=== PATIENT | male | born 1950 | race Caucasian/White ===

== ENCOUNTER 2018-05-07 10:18 | Inpatient (IN) | payer MEDICARE, OTHER ==
[2018-05-07] MEDS ORDERED: Sodium Chloride 0.9% 1,000 ML IV SCH (10:30)
--- NOTE | 2018-05-07 10:31 | EDM.PDOC ---
ED HPI GENERAL MEDICAL PROBLEM - General Chief Complaint: Neuro Symptoms/Deficits Stated Complaint: CAME FROM MAIN REGISTRATION Time Seen by Provider: 05/07/18 10:25 Source of Information: Reports: Patient History Limitations: Reports: No Limitations - History of Present Illness INITIAL COMMENTS - FREE TEXT/NARRATIVE: 67-year-old male arrives in the ED on his own volition. History is somewhat discordant. He reports he's had symptoms of right arm discomfort and right leg discomfort for the better part of a week. This morning after awakening he recognizes that his speech was off. Rarely this occurred when he spoke to his mother on the phone and she indicated that his speech was hardly understandable. Patient on firm questioning indicates that his speech was not quite right yesterday as well. He denies headache nausea or vomiting. Denies any recent falls or closed head injuries. He states that his leg and arm are clumsy and are not obeying him. He can still walk but with difficulty but needs assistance. No previous history of CVA. Patient has a history of hypertension but states he's not been taking any antihypertensive for a lengthy period of time. Apparently he was placed on anti-cholesterol medication as well in the past but stopped this 2 due to side effects He is a smoker a pack and half per day. Drinks alcohol daily. Onset: Unknown/Unsure (He states he's been having right arm and leg weakness and discomfort for the better part of a week. The speech problems and dysarthria are new today. He's had them since awakening therefore not ever clarified time of CVA.) Onset Date: 05/07/18 (Not able to clarify time of CVA. He awoke with right facial droop and speech problems today.) Duration: Hour(s): Location: Reports: Generalized (Right arm weakness right leg weakness right hemifacial weakness and dysarthria.) Quality: Reports: Ache (States his right arm is aching in his discomfort.) Severity: Moderate (Affecting the right side. Right facial droop is evident.) Improves with: Reports: None Worsens with: Reports: None Context: Denies: Activity, Exercise, Lifting, Sick Contact, Trauma, Other Associated Symptoms: Reports: Cough, cough w sputum (Chronic productive cough as he is a heavy cigarette smoker.), Shortness of Breath, Weakness (Right arm right leg right face today.). 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: Other (see below) (None.) - Related Data Allergies Allergy/AdvReac Type Severity Reaction Status Date / Time tetnus Allergy Respiratory Uncoded 05/07/18 10:45 Distress Past Medical History Cardiovascular History: Reports: High Cholesterol, Hypertension Respiratory History: Reports: Bronchitis, Recurrent, COPD ([id number] history of cigarette use.) Genitourinary History: Reports: BPH Social & Family History - Alcohol Use Alcohol Use History: Yes Days Per Week of Alcohol Use: 7 Days Per Week of Alcohol Use Comment: 7 Number of Drinks Per Day: 4 (Primarily drinks whiskey and water 2-3 ounces of alcohol per drink) Total Drinks Per Week: 28 Alcohol Use Frequency: Daily - Living Situation & Occupation Living situation: Reports: Occupation: Employed ED ROS GENERAL - Review of Systems Review Of Systems: See Below Constitutional: Denies: Fever, Chills, Malaise, Weakness, Fatigue, Weight Loss HEENT: Reports: Glasses Respiratory: Reports: No Symptoms Cardiovascular: Reports: No Symptoms Endocrine: Reports: No Symptoms GI/Abdominal: Reports: No Symptoms : Reports: Other (nocturia x3) Musculoskeletal: Reports: Other (Appreciates weakness of his right arm right leg and difficulty walking this morning.) Skin: Reports: No Symptoms Neurological: Reports: Numbness, Paresthesia (Right arm right leg), Pre- Existing Deficit ( right arm right leg), Tingling, Difficulty Walking ( Difficulty walking today needed help), Weakness ( and he drove himself to the hospital.), Change in Speech ( right arm right leg right face. each is dysarthric. ). Denies: Confusion, Dizziness, Headache, Seizure, Syncope ( symptoms in his arm and leg been present for about a week. ), Tremors, Trouble Speaking Psychiatric: Reports: No Symptoms Hematologic/Lymphatic: Reports: No Symptoms Immunologic: Reports: No Symptoms ED EXAM, NEURO - Physical Exam Exam: See Below Exam Limited By: No Limitations General Appearance: Alert, WD/WN, Mild Distress Eye Exam: Bilateral Eye: Normal Inspection, PERRL Throat/Mouth: Other (Oropharynx is diffusely erythematous. Uvula was in the midline. Tongue is mildly dry and coated) Head Exam: Atraumatic, Normocephalic Neck: Normal Inspection, Supple, Non-Tender, Full Range of Motion. No: Carotid Bruit, Lymphadenopathy (L), Lymphadenopathy (R) Respiratory/Chest: No Respiratory Distress, Lungs Clear, Normal Breath Sounds, Decreased Breath Sounds. No: Respiratory Distress Cardiovascular: Normal Peripheral Pulses, Regular Rate, Rhythm, No Edema, No Gallop, No Murmur, No Rub GI/Abdominal: Normal Bowel Sounds, Soft, Non-Tender, No Organomegaly, No Abnormal Bruit, No Mass Neurological: Alert, Normal Dorsiflexion, Normal Plantar Flexion, Babinski ( Positive on the right), Other (I would grade his motor power and tone in his right upper extremity is 4.5 out of 5 similarly 4.5 out of 5 in his right leg. He does have a positive Babinski on the right side.). No: CN II-XII Intact, Normal Gait DTR: 0: Achilles (R), Achilles (L), 1+: Bicep (R), Bicep (L), 2+: Patella (R), Patella (L) Back Exam: Normal Inspection, Full Range of Motion. No: CVA Tenderness (L), CVA Tenderness (R) Extremities: Normal Inspection, Normal Range of Motion, Non-Tender, No Pedal Edema, Other (He has 3+ pitting edema bilaterally up to his knees for the most part) Psychiatric: Normal Mood Skin Exam: Warm, Dry, Intact, Normal Color, No Rash EKG INTERPRETATION EKG Date: 05/07/18 Time: 10:40 Rhythm: NSR Rate (Beats/Min): 93 [place]: Normal P-Wave: Present QRS: Other (There is early R-wave transition suggesting right ventricular hypertrophy pattern. He is a heavy smoker likely has pulmonary hypertension.) ST-T: Depressed (ST segment is depressed V3 to V6 one in aVL suggesting possible anteroseptal apical lateral wall ischemia. There is a deep Q-wave in lead 3 but Q-wave in aVF is less than 25% of the QRS complexes considered inconsequential. With computer reading of inferior wall [place].) QT: Normal EKG Interpretation Comments: Abnormal ECG. Course - Vital Signs Last Recorded V/S: Last Vital Signs Temp 36.9 C 05/07/18 10:26 Pulse 80 05/07/18 11:12 Resp 16 05/07/18 10:26 BP 169/88 H 05/07/18 11:43 Pulse Ox 100 05/07/18 10:26 - Orders/Labs/Meds Orders: Active Orders 24 hr Category Date Time Status Blood Glucose Check, Bedside [RC] ONETIME Care 05/07/18 10:29 Active EKG Documentation Completion [RC] STAT Care 05/07/18 10:27 Active Chest 1V Frontal [CR] Stat Exams 05/07/18 10:27 Taken URINALYSIS W/MICROSCOPIC [UA W/MICROSCOPIC] [URIN] Stat Lab 05/07/18 12:04 Ordered Sodium Chloride 0.9% [Normal Saline] 1,000 ml Med 05/07/18 10:30 Active IV ASDIRECTED Medication Orders Sodium Chloride (Normal Saline) 1,000 mls @ 100 mls/hr IV ASDIRECTED DALE Last Admin: 05/07/18 10:43 Dose: 100 mls/hr Labs: Laboratory Tests 05/07/18 05/07/18 05/07/18 Range/Units 10:35 10:35 10:35 WBC 6.78 (4.23-9.07) K/mm3 RBC 4.96 (4.63-6.08) M/mm3 Hgb 15.2 (13.7-17.5) gm/L Hct 43.6 (40.1-51.0) % MCV 87.9 (79.0-92.2) fl MCH 30.6 (25.7-32.2) pg MCHC 34.9 (32.2-35.5) g/dl RDW Std Deviation 41.7 (35.1-43.9) fL Plt Count 194 (163-337) K/mm3 MPV 10.6 (9.4-12.3) fl Neutrophils % (Manual) 64 H (40-60) % Band Neutrophils % 1 (0-10) % Lymphocytes % (Manual) 30 (20-40) % Atypical Lymphs % 0 % Monocytes % (Manual) 4 (2-10) % Eosinophils % (Manual) 0 L (0.8-7.0) % Basophils % (Manual) 1 (0.2-1.2) Platelet Estimate Adequate RBC Morph Comment Normal ESR (0-15) mm/hr PT 10.0 (9.5-12.1) SECONDS INR < 0.93 APTT 28 (24-31) SECONDS Sodium 134 L (136-145) mEq/L Potassium 3.9 (3.5-5.1) mEq/L Chloride 99 (98-107) mEq/L Carbon Dioxide 23 (21-32) mEq/L Anion Gap 15.9 H (5-15) BUN 14 (7-18) mg/dL Creatinine 0.9 (0.7-1.3) mg/dL Est Cr Clr Drug Dosing 73.44 mL/min Estimated GFR (MDRD) > 60 (>60) mL/min BUN/Creatinine Ratio 15.6 (14-18) Glucose 259 H (80-115) mg/dL Hemoglobin A1c (4.50-6.20) % Calcium 9.4 (8.5-10.1) mg/dL Magnesium 1.6 L (1.8-2.4) mg/dl Total Bilirubin 0.5 (0.2-1.0) mg/dL AST 18 (15-37) U/L ALT 22 (16-63) U/L Alkaline Phosphatase 108 (46-116) U/L Troponin I < 0.017 (0.00-0.056) ng/mL C-Reactive Protein 0.3 (<1.0) mg/dL NT-Pro-B Natriuret Pep (0-125) pg/mL Total Protein 8.0 (6.4-8.2) g/dl Albumin 3.7 (3.4-5.0) g/dl Globulin 4.3 gm/dL Albumin/Globulin Ratio 0.9 L (1-2) Lipase (73-393) U/L Ethyl Alcohol 0.00 (0.00) gm% 05/07/18 05/07/18 05/07/18 Range/Units 10:35 10:35 10:35 WBC (4.23-9.07) K/mm3 RBC (4.63-6.08) M/mm3 Hgb (13.7-17.5) gm/L Hct (40.1-51.0) % MCV (79.0-92.2) fl MCH (25.7-32.2) pg MCHC (32.2-35.5) g/dl RDW Std Deviation (35.1-43.9) fL Plt Count (163-337) K/mm3 MPV (9.4-12.3) fl Neutrophils % (Manual) (40-60) % Band Neutrophils % (0-10) % Lymphocytes % (Manual) (20-40) % Atypical Lymphs % % Monocytes % (Manual) (2-10) % Eosinophils % (Manual) (0.8-7.0) % Basophils % (Manual) (0.2-1.2) Platelet Estimate RBC Morph Comment ESR 35 H (0-15) mm/hr PT (9.5-12.1) SECONDS INR APTT (24-31) SECONDS Sodium (136-145) mEq/L Potassium (3.5-5.1) mEq/L Chloride (98-107) mEq/L Carbon Dioxide (21-32) mEq/L Anion Gap (5-15) BUN (7-18) mg/dL Creatinine (0.7-1.3) mg/dL Est Cr Clr Drug Dosing mL/min Estimated GFR (MDRD) (>60) mL/min BUN/Creatinine Ratio (14-18) Glucose (80-115) mg/dL Hemoglobin A1c 10.90 H (4.50-6.20) % Calcium (8.5-10.1) mg/dL Magnesium (1.8-2.4) mg/dl Total Bilirubin (0.2-1.0) mg/dL AST (15-37) U/L ALT (16-63) U/L Alkaline Phosphatase (46-116) U/L Troponin I (0.00-0.056) ng/mL C-Reactive Protein (<1.0) mg/dL NT-Pro-B Natriuret Pep 2742 H (0-125) pg/mL Total Protein (6.4-8.2) g/dl Albumin (3.4-5.0) g/dl Globulin gm/dL Albumin/Globulin Ratio (1-2) Lipase (73-393) U/L Ethyl Alcohol (0.00) gm% 05/07/18 Range/Units 10:35 WBC (4.23-9.07) K/mm3 RBC (4.63-6.08) M/mm3 Hgb (13.7-17.5) gm/L Hct (40.1-51.0) % MCV (79.0-92.2) fl MCH (25.7-32.2) pg MCHC (32.2-35.5) g/dl RDW Std Deviation (35.1-43.9) fL Plt Count (163-337) K/mm3 MPV (9.4-12.3) fl Neutrophils % (Manual) (40-60) % Band Neutrophils % (0-10) % Lymphocytes % (Manual) (20-40) % Atypical Lymphs % % Monocytes % (Manual) (2-10) % Eosinophils % (Manual) (0.8-7.0) % Basophils % (Manual) (0.2-1.2) Platelet Estimate RBC Morph Comment ESR (0-15) mm/hr PT (9.5-12.1) SECONDS INR APTT (24-31) SECONDS Sodium (136-145) mEq/L Potassium (3.5-5.1) mEq/L Chloride (98-107) mEq/L Carbon Dioxide (21-32) mEq/L Anion Gap (5-15) BUN (7-18) mg/dL Creatinine (0.7-1.3) mg/dL Est Cr Clr Drug Dosing mL/min Estimated GFR (MDRD) (>60) mL/min BUN/Creatinine Ratio (14-18) Glucose (80-115) mg/dL Hemoglobin A1c (4.50-6.20) % Calcium (8.5-10.1) mg/dL Magnesium (1.8-2.4) mg/dl Total Bilirubin (0.2-1.0) mg/dL AST (15-37) U/L ALT (16-63) U/L Alkaline Phosphatase (46-116) U/L Troponin I (0.00-0.056) ng/mL C-Reactive Protein (<1.0) mg/dL NT-Pro-B Natriuret Pep (0-125) pg/mL Total Protein (6.4-8.2) g/dl Albumin (3.4-5.0) g/dl Globulin gm/dL Albumin/Globulin Ratio (1-2) Lipase 100 (73-393) U/L Ethyl Alcohol (0.00) gm% Meds: Medications Generic Name Dose Route Start Last Admin Trade Name Freq PRN Reason Stop Dose Admin Sodium Chloride 1,000 mls @ 100 mls/hr 05/07/18 10:30 05/07/18 10:43 Normal Saline IV 100 mls/hr ASDIRECTED DALE Administration Discontinued Medications Generic Name Dose Route Start Last Admin Trade Name Marina PRN Reason Stop Dose Admin Amlodipine Besylate 10 mg 05/07/18 21:00 Norvasc PO BEDTIME DALE Amlodipine Besylate 10 mg 05/07/18 11:40 05/07/18 11:43 Norvasc PO 05/07/18 11:41 10 mg ONETIME ONE Administration Aspirin 162 mg 05/07/18 11:28 05/07/18 11:35 Aspirin PO 05/07/18 11:29 162 mg ONETIME ONE Administration Enalaprilat 1.25 mg 05/07/18 11:34 05/07/18 11:40 Vasotec Iv IVPUSH 05/07/18 11:35 1.25 mg ONETIME ONE Administration Furosemide 40 mg 05/07/18 11:32 05/07/18 11:38 Lasix IVPUSH 05/07/18 11:33 40 mg NOW ONE Administration Labetalol HCl 20 mg 05/07/18 11:00 05/07/18 11:12 Normodyne IVPUSH 05/07/18 11:01 20 mg ONETIME ONE Administration Protocol - Radiology Interpretation Free Text/Narrative:: 67-year-old male drove himself to the hospital. He came because of dysarthria and right-sided facial weakness. He states that he's been having discomfort in his right arm and leg for the last week. A he states his right arm and leg are somewhat clumsy. He is having some difficulty walking and needed assistance into the hospital. He has not fallen or hit his head in the last couple weeks. He has no outward signs of trauma. Patient smokes pack and half cigarettes per day. He is known to have hypertension which is likely uncontrolled as he has not been taking any medication for several months. Patient takes alcohol on a daily basis. Show signs and symptoms of alcoholism with rhinophyma facial rubor. Clinically he is in sinus rhythm. He is hypertensive but the definitive numbers are not yet available. Initial ones came back at 201/180 which is fictitious as the pulse pressures are too close together. Plan 1 view chest x- ray. ECG. Routine labs blood alcohol level serum magnesium level coags. IV will be normal saline [address] head to be done immediately - Re-Assessments/Exams Free Text/Narrative Re-Assessment/Exam: 05/07/18 10:50 CT of the brain reveals no intracranial bleeding or mass effect. He does show advanced degenerative changes with prominent sulci. Prominent dilated lateral ventricles and third ventricles. Diffuse small vessel ischemic changes in both basal ganglia without any obvious lacunar infarcts. There is an area of increased density at th of the right cerebellum. This could be a small vascular hemorrhage in the brainstem. Will await radiology report.. There are no skull fractures and sinuses and mastoids are clear. ECG shows sinus rhythm at 93/m. There is evidence of right ventricular hypertrophy pattern suggesting cor pulmonale or pulmonary hypertension. 05/07/18 11:00 initial BP is elevated at 207/101. Patient will receive labetalol 20 mg IV. 05/07/18 11:15 Labs are back. Total white count is normal at 6.78. 64% neutrophils and 1% bands reported. Hemoglobin is 15.2 with hematocrit of 43.6. EP is normal at 87.9. White count is normal 194,000. PT is 10.0 with an INR of less than 0.93. PTT is 28. Sodium is slightly low at 134. Potassium is normal at 3.9. Chloride is 99 with a bicarbonate of 23. And a gap slightly elevated at 15.9. BUNs 14 creatinine is 0.9. Glucose is elevated at 259 will order a glycosylated protein to see if he is diabetic versus this being a stress response. Is 9.4. Magnesium slightly low at 1.6. Total bilirubin is 0.5 with normal liver function. Troponin I is less than 0.017. C-reactive protein is 0.3. BNP is elevated at 2742. All at this time is 0. 05/07/18 11:23 we got him up walking. He does not feel safe to walk alone. He walks with a slightly wider space gait than normal. His right leg moves fairly normally but he states it feels weak and numb. Did quite well without any loss of balance or dizziness. He states however he did notice this at home. 05/07/18 11:26 I will speak with Dr. Lowery -- pest control applicator hospitalist with a view to admission to the hospital. His elevated BNP and marked dependent edema suggests that he has chronic congestive failure. 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 Requires echocardiogram as part of his investigation as well as Doppler ultrasound of his carotids and MRI of his brain. I will place him on initial dose of aspirin 162 mg by mouth now. He's had no indications of active gastritis or GI bleeding will also give him Norvasc 10 mg by mouth as it will not cause any negative inotropic effect on his heart. 05/07/18 11:41 Spoke with pest control applicator hospitalist Dr. Lowery and the patient will be admitted to the intensive care unit for definitive management. 05/07/18 12:06 Last recorded blood pressure was 178/93. She just received the Vasotec IV. Departure - Departure Time of Disposition: 11:43 Disposition: Admitted As Inpatient 65 Condition: Fair Clinical Impression: Cerebrovascular accident (CVA) determined by clinical assessment, Hypomagnesemia, Hyponatremia, Alcohol abuse, Acute hyperglycemia Congestive heart failure Qualifiers: Heart failure type: unspecified Heart failure chronicity: unspecified Qualified Code(s): I50.9 - Heart failure, unspecified - Discharge Information Referrals: PCP,None [Primary Care Provider] - Forms: ED Department Discharge - My Orders Last 24 Hours: My Active Orders 05/07/18 10:27 EKG Documentation Completion [RC] STAT Chest 1V Frontal [CR] Stat 05/07/18 10:29 Blood Glucose Check, Bedside [RC] ONETIME 05/07/18 10:30 Sodium Chloride 0.9% [Normal Saline] 1,000 ml IV ASDIRECTED 05/07/18 12:04 URINALYSIS W/MICROSCOPIC [UA W/MICROSCOPIC] [URIN] Stat - Assessment/Plan Last 24 Hours: My Active Orders 05/07/18 10:27 EKG Documentation Completion [RC] STAT Chest 1V Frontal [CR] Stat 05/07/18 10:29 Blood Glucose Check, Bedside [RC] ONETIME 05/07/18 10:30 Sodium Chloride 0.9% [Normal Saline] 1,000 ml IV ASDIRECTED 05/07/18 12:04 URINALYSIS W/MICROSCOPIC [UA W/MICROSCOPIC] [URIN] Stat
[2018-05-07] MEDS ORDERED: Labetalol 100 MG/20 ML MDV IVPUSH ONE (11:00)
[2018-05-07] MEDS ORDERED: Aspirin 81 MG Tab.Chew PO ONE (11:28)
[2018-05-07] MEDS ORDERED: Furosemide 40 MG/4 ML VIAL IVPUSH ONE (11:32)
[2018-05-07] MEDS ORDERED: Enalaprilat 1.25 MG/ML SDV IVPUSH ONE (11:34)
--- NOTE | 2018-05-07 11:39 | CT ---
Head CT Technique: Multiple axial sections through the brain were obtained. Intravenous contrast was not utilized. Comparison: No previous intracranial imaging is available. Findings: Ventricles along with basal cisterns and sulci over the convexities are mildly prominent. Old lacunar infarcts are seen within the basal ganglia. Mild diminished density noted within the periventricular and subcortical white matter which is most likely due to small vessel ischemic demyelination change. There is no evidence of intracranial hemorrhage. No midline shift or mass effect is seen. Bone window settings were reviewed which shows no acute calvarial abnormality. Impression: 1. Senescent change as described above. No acute intracranial abnormality is identified on noncontrast head CT study. Diagnostic code #2 Agree with preliminary report issued by [facility] (preliminary report reported on 05/07/18, 11:46 AM Central Time)
[2018-05-07] MEDS ORDERED: amLODIPine 5 MG Tab PO ONE (11:40)
--- NOTE | 2018-05-07 12:29 | CR ---
Chest: Portable view of the chest was obtained. Comparison: No prior chest x-ray, prior chest CT of 07/03/16. Heart is slightly enlarged. Tortuous thoracic aorta is seen. Lungs are clear with no acute parenchymal change. Bony structures are grossly intact. Incidental note of several old healed right mid rib fractures. Impression: 1. Incidental findings. Nothing acute is seen on portable chest x-ray. Diagnostic code #2
[2018-05-07] MEDS ORDERED: hydrALAZINE 20 MG/ML SDV IVPUSH PRN (12:33)
[2018-05-07] MEDS ORDERED: LORazepam 2 MG/ML SDV IVPUSH PRN ×2 (12:33→12:35)
[2018-05-07] MEDS ORDERED: Metoprolol Tartrate 5 MG/5 ML SDV IVPUSH PRN (12:33)
[2018-05-07] MEDS ORDERED: Ondansetron 4 MG/2 ML SDV IV PRN (12:37)
[2018-05-07] MEDS ORDERED: Acetaminophen/HYDROcodone 325-5 MG Tab PO PRN (12:37)
[2018-05-07] MEDS ORDERED: Bisacodyl 5 MG Tab PO PRN (12:37)
[2018-05-07] MEDS ORDERED: Ondansetron 4 MG Tab.DIS PO PRN (12:37)
[2018-05-07] MEDS ORDERED: Docusate Sodium 100 MG Cap PO PRN (12:37)
[2018-05-07] MEDS ORDERED: Acetaminophen 325 MG Tab PO PRN (12:37)
[2018-05-07] MEDS ORDERED: Polyethylene Glycol 3350 Powder 17 GM Packet PO PRN (12:37)
[2018-05-07] MEDS ORDERED: Albuterol/Ipratropium 3.0-0.5 MG/3 ML Neb Soln NEB PRN (12:37)
[2018-05-07] MEDS ORDERED: Lactated Ringers 1,000 ML IV SCH (12:45)
[2018-05-07] MEDS ORDERED: Magnesium Sulfate/Water 2 GM in Premix Bag 1 BAG IV ONE (12:49)
[2018-05-07] MEDS ORDERED: 50% Dextrose in Water 50 ML Syringe IVPUSH PRN (12:49)
[2018-05-07] MEDS: Nicotine 21 MG/24 Hr Patch TRDERM SCH (12:57)
--- NOTE | 2018-05-07 13:13 | PCM.HP ---
H&P History of Present Illness - General Date of Service: 05/07/18 Admit Problem/Dx: Admission Diagnosis/Problem Admission Diagnosis/Problem CVA, Cerebrovascular accident Source of Information: Patient, Family, Old Records, Provider, RN, RN Notes Reviewed History Limitations: Reports: No Limitations - History of Present Illness Initial Comments - Free Text/Narative: Tl Alvarez is a 67 yo male who resents for ED today (05/07/18), after driving himself here, with right arm and leg discomfort for the better part of a week. She after waking he reports his speech was off. It is reported that he spoke with his mother on the phone and she reported his speech was understandable. After discussion with the ED provider it is noted that his speech was actually off yesterday as well. Denies headache, nausea, vomiting, recent falls, recent closed head injuries. He reports that his leg and arm are clumsy and not obeying him. He also reports right-sided facial droop. He can walk but it is difficult and he needs assistance. Has no history of CVA. Has history of hypertension but he has not been taking any antihypertensive medications for some time now. He was also apparently on a statin but stopped due to side effects. He is a current pack and a half a day smoker. Drinks 4 alcoholic drinks daily. in the ED temp was 36.9 Celsius. Pulse 80. Respirations 16. Blood pressure high at 169/88. Pulse ox 100%. 12-lead EKG was obtained which shows a sinus rhythm at 93 bpm. There is early R wave transition suggesting right ventricular hypertrophy pattern. He is a heavy smoker and likely has pulmonary hypertension. There is ST segment depression in leads V3 to V6 and aVL suggesting possible anterior septal apical lateral wall ischemia. As a deep Q- wave in lead 3 but Q-wave in aVF is less than 25% of the QRS complex considered inconsequential. Computer reads inferior wall DE. Labs are obtained: CBC is normal at 6.78. Hemoglobin good at 15.2. Hematocrit 43.6. He is normocytic. Platelets are good on 194,000. Neutrophils are slightly elevated at 64%. There is 1% band neutrophils noted. PT is 10. INR is less than 0.93. APTT is 28. Sodium is 134. Potassium 3.9. Chloride 99. Coronary oxide 23. Anion gap is high at 15.9. BUN is 14. Creatinine 0.9. EGFR greater than 60. Glucose is quite high at 259. Calcium is 9.4. Magnesium low at 1.6. Chao 0.5. AST is 18, ALT 22, alkaline phosphatase 108. Troponin is negative at 0.017. CRP P0 0.3. Protein 8.0. Albumin 3.7. Ethanol call is 0.00. ESR is 35. A1c is very high at 10.9. BNP is very high at 2742. Lipase is 100. UA is obtained and is negative. And 10 mg of Norvasc, 162 mg by mouth aspirin. 1.25mg vasotec IV. 40 mg IV push Lasix. And 20 mg IV push labetalol. 1 view chest x-rays obtained which notes incidental findings. Nothing acute. No pulmonary congestion is noted. CT of the head was obtained and an interpreted by Dr. Sofia as "1. Senescent changes as described. No acute intracranial abnormalities identified on noncontrast head CT study." he did ambulate in the ER and notes that he does not feel safe walking alone. He does walk with a slightly wider space gait than normal. Right leg does move fairly normal however he states he feels weak and numb. Denies any dizziness and no loss of balance. He is subsequently admitted to the ICU. He carries a history of: hLD, HTN, recurrent bronchitis COPD, BPH. He is a full code. He does not have a PCP. - Related Data Allergies/Adverse Reactions: Allergies Allergy/AdvReac Type Severity Reaction Status Date / Time tetnus Allergy Respiratory Uncoded 05/07/18 13:00 Distress Home Medications: Home Meds Aspirin [Ecotrin] 325 mg PO TID 05/07/18 [History] Past Medical History HEENT History: Reports: Cataract, Impaired Vision Cardiovascular History: Reports: High Cholesterol, Hypertension Respiratory History: Reports: Bronchitis, Recurrent, COPD ([id number] history of cigarette use.) Genitourinary History: Reports: BPH Social & Family History - Tobacco Use Smoking Status *Q: Current Every Day Smoker Years of Tobacco use: 40 Packs/Tins Daily: 1.5 - Caffeine Use Caffeine Use: Reports: Coffee - Alcohol Use Days Per Week of Alcohol Use: 7 Number of Drinks Per Day: 4 (Primarily drinks whiskey and water 2-3 ounces of alcohol per drink) Total Drinks Per Week: 28 - Recreational Drug Use Recreational Drug Use: No - Living Situation & Occupation Living situation: Reports: Occupation: Employed H&P Review of Systems - Review of Systems: Review Of Systems: See Below General: Reports: Weakness. Denies: Fever, Chills, Malaise, Fatigue, Decreased Appetite, Weight Loss HEENT: Reports: No Symptoms. Denies: Contact Lenses, Dysphasia, Ear Pain, Eye Pain, Post Nasal Drip, Sinus Congestion, Visual Changes Pulmonary: Reports: No Symptoms, Cough (chronic ), Sputum (chronic ) Cardiovascular: Reports: No Symptoms, Dyspnea on Exertion Gastrointestinal: Reports: No Symptoms. Denies: Abdominal Pain, Constipation, Diarrhea, Decreased Appetite, Distension, Nausea, Stool Incontinence, Vomiting Genitourinary: Reports: Other (nocturia ). Denies: Dysuria, Frequency, Burning , Pain, Urgency Musculoskeletal: Reports: Other (Right arm and leg weakness ). Denies: Neck Pain, Shoulder Pain, Arm Pain, Back Pain, Foot Pain, Joint Pain Skin: Reports: No Symptoms Psychiatric: Reports: No Symptoms Neurological: Reports: No Symptoms, Numbness, Paresthesia, Tingling, Trouble Speaking, Difficulty Walking, Weakness, Change in Speech, Gait Disturbance. Denies: Confusion, Dizziness, Headache, Pre-Existing Deficit, Seizure, Syncope Hematologic/Lymphatic: Reports: No Symptoms Immunologic: Reports: No Symptoms Exam - Exam Exam: See Below - Vital Signs Vital Signs: Last Vital Signs Temp 98.4 F 05/07/18 10:26 Pulse 80 05/07/18 11:12 Resp 16 05/07/18 10:26 BP 169/88 H 05/07/18 11:43 Pulse Ox 100 05/07/18 10:26 Weight: 160 lb - Exam Quality Assessment: DVT Prophylaxis General: Alert, Oriented, Cooperative. No: Mild Distress HEENT: Conjunctiva Clear, EACs Clear, EOMI, Hearing Intact, Nares Patent, Posterior Pharynx Clear, PERRLA. No: Mucosa Moist & [place] (dry) Neck: Supple, Trachea Midline. No: JVD, Thyromegaly Lungs: Clear to Auscultation, Normal Respiratory Effort, Decreased Breath Sounds. No: Crackles, Rales, Rhonchi, Wheezing Cardiovascular: Regular Rate, Regular Rhythm GI/Abdominal Exam: Normal Bowel Sounds, Soft, Non-Tender, No Organomegaly, No Distention, No Abnormal Bruit, No Mass (Male) Exam: Deferred Rectal (Males) Exam: Deferred Back Exam: Normal Inspection, Full Range of Motion Extremities: Normal Inspection, Normal Range of Motion, Non-Tender, Normal Capillary Refill, Pedal Edema (3+ bilateral ) Peripheral Pulses: 1+: Posterior Tibial (L), Posterior Tibial (R), Dorsalis Pedis (L), Dorsalis Pedis (R), 2+: Radial (L), Radial (R) Skin: Warm, Dry, Intact Neuro Extensive - Mental Status: Alert, Oriented x3, Normal Mood/Affect, Memory Intact Neuro Extensive - Motor, Sensory, Reflexes: CN II-XII Intact, Abnormal Gait, Dysarthria, Facial Palsy (R), Pronator Drift (R), Abnormal Finger to Nose ( right arm). No: Tongue Deviation (L), Tongue Deviation (R), Facial palsy (L), Hemeplagia (R), Hemeplagia (L), Pronator Drift (L), Abnormal Sensation, Abnormal Motor, Tremor, Motor/Sensory Deficits Psychiatric: Alert, Normal Affect, Normal Mood - Patient Data Lab Results Last 24 hrs: Laboratory Results - last 24 hr 05/07/18 05/07/18 05/07/18 Range/Units 10:35 10:35 10:35 WBC 6.78 (4.23-9.07) K/mm3 RBC 4.96 (4.63-6.08) M/mm3 Hgb 15.2 (13.7-17.5) gm/L Hct 43.6 (40.1-51.0) % MCV 87.9 (79.0-92.2) fl MCH 30.6 (25.7-32.2) pg MCHC 34.9 (32.2-35.5) g/dl RDW Std Deviation 41.7 (35.1-43.9) fL Plt Count 194 (163-337) K/mm3 MPV 10.6 (9.4-12.3) fl Neutrophils % (Manual) 64 H (40-60) % Band Neutrophils % 1 (0-10) % Lymphocytes % (Manual) 30 (20-40) % Atypical Lymphs % 0 % Monocytes % (Manual) 4 (2-10) % Eosinophils % (Manual) 0 L (0.8-7.0) % Basophils % (Manual) 1 (0.2-1.2) Platelet Estimate Adequate RBC Morph Comment Normal ESR (0-15) mm/hr PT 10.0 (9.5-12.1) SECONDS INR < 0.93 APTT 28 (24-31) SECONDS Sodium 134 L (136-145) mEq/L Potassium 3.9 (3.5-5.1) mEq/L Chloride 99 (98-107) mEq/L Carbon Dioxide 23 (21-32) mEq/L Anion Gap 15.9 H (5-15) BUN 14 (7-18) mg/dL Creatinine 0.9 (0.7-1.3) mg/dL Est Cr Clr Drug Dosing 73.44 mL/min Estimated GFR (MDRD) > 60 (>60) mL/min BUN/Creatinine Ratio 15.6 (14-18) Glucose 259 H (80-115) mg/dL Hemoglobin A1c (4.50-6.20) % Calcium 9.4 (8.5-10.1) mg/dL Magnesium 1.6 L (1.8-2.4) mg/dl Total Bilirubin 0.5 (0.2-1.0) mg/dL AST 18 (15-37) U/L ALT 22 (16-63) U/L Alkaline Phosphatase 108 (46-116) U/L Troponin I < 0.017 (0.00-0.056) ng/mL C-Reactive Protein 0.3 (<1.0) mg/dL NT-Pro-B Natriuret Pep (0-125) pg/mL Total Protein 8.0 (6.4-8.2) g/dl Albumin 3.7 (3.4-5.0) g/dl Globulin 4.3 gm/dL Albumin/Globulin Ratio 0.9 L (1-2) Lipase (73-393) U/L Urine Color (Yellow) Urine Appearance (Clear) Urine pH (5.0-8.0) Ur Specific [place] (1.005-1.030) Urine Protein (Negative) Urine Glucose (UA) (Negative) Urine Ketones (Negative) Urine Occult Blood (Negative) Urine Nitrite (Negative) Urine Bilirubin (Negative) Urine Urobilinogen (0.2-1.0) Ur Leukocyte Esterase (Negative) Urine RBC (0-5) /hpf Urine WBC (0-5) /hpf Ur Epithelial Cells (0-5) /hpf Urine Bacteria (FEW) /hpf Urine Mucus (FEW) /hpf Urine Opiates Screen (NEGATIVE) Ur Buprenorphine Scrn (NEGATIVE) Ur Oxycodone Screen (NEGATIVE) Urine Methadone Screen (NEGATIVE) Ur Propoxyphene Screen (NEGATIVE) Ur Barbiturates Screen (NEGATIVE) Ur Tricyclics Screen (NEGATIVE) Ur Phencyclidine Scrn (NEGATIVE) Ur Amphetamine Screen (NEGATIVE) U Methamphetamines Scrn (NEGATIVE) U Benzodiazepines Scrn (NEGATIVE) U Cocaine Metab Screen (NEGATIVE) U Marijuana (THC) Screen (NEGATIVE) Ethyl Alcohol 0.00 (0.00) gm% 05/07/18 05/07/18 05/07/18 Range/Units 10:35 10:35 10:35 WBC (4.23-9.07) K/mm3 RBC (4.63-6.08) M/mm3 Hgb (13.7-17.5) gm/L Hct (40.1-51.0) % MCV (79.0-92.2) fl MCH (25.7-32.2) pg MCHC (32.2-35.5) g/dl RDW Std Deviation (35.1-43.9) fL Plt Count (163-337) K/mm3 MPV (9.4-12.3) fl Neutrophils % (Manual) (40-60) % Band Neutrophils % (0-10) % Lymphocytes % (Manual) (20-40) % Atypical Lymphs % % Monocytes % (Manual) (2-10) % Eosinophils % (Manual) (0.8-7.0) % Basophils % (Manual) (0.2-1.2) Platelet Estimate RBC Morph Comment ESR 35 H (0-15) mm/hr PT (9.5-12.1) SECONDS INR APTT (24-31) SECONDS Sodium (136-145) mEq/L Potassium (3.5-5.1) mEq/L Chloride (98-107) mEq/L Carbon Dioxide (21-32) mEq/L Anion Gap (5-15) BUN (7-18) mg/dL Creatinine (0.7-1.3) mg/dL Est Cr Clr Drug Dosing mL/min Estimated GFR (MDRD) (>60) mL/min BUN/Creatinine Ratio (14-18) Glucose (80-115) mg/dL Hemoglobin A1c 10.90 H (4.50-6.20) % Calcium (8.5-10.1) mg/dL Magnesium (1.8-2.4) mg/dl Total Bilirubin (0.2-1.0) mg/dL AST (15-37) U/L ALT (16-63) U/L Alkaline Phosphatase (46-116) U/L Troponin I (0.00-0.056) ng/mL C-Reactive Protein (<1.0) mg/dL NT-Pro-B Natriuret Pep 2742 H (0-125) pg/mL Total Protein (6.4-8.2) g/dl Albumin (3.4-5.0) g/dl Globulin gm/dL Albumin/Globulin Ratio (1-2) Lipase (73-393) U/L Urine Color (Yellow) Urine Appearance (Clear) Urine pH (5.0-8.0) Ur Specific [place] (1.005-1.030) Urine Protein (Negative) Urine Glucose (UA) (Negative) Urine Ketones (Negative) Urine Occult Blood (Negative) Urine Nitrite (Negative) Urine Bilirubin (Negative) Urine Urobilinogen (0.2-1.0) Ur Leukocyte Esterase (Negative) Urine RBC (0-5) /hpf Urine WBC (0-5) /hpf Ur Epithelial Cells (0-5) /hpf Urine Bacteria (FEW) /hpf Urine Mucus (FEW) /hpf Urine Opiates Screen (NEGATIVE) Ur Buprenorphine Scrn (NEGATIVE) Ur Oxycodone Screen (NEGATIVE) Urine Methadone Screen (NEGATIVE) Ur Propoxyphene Screen (NEGATIVE) Ur Barbiturates Screen (NEGATIVE) Ur Tricyclics Screen (NEGATIVE) Ur Phencyclidine Scrn (NEGATIVE) Ur Amphetamine Screen (NEGATIVE) U Methamphetamines Scrn (NEGATIVE) U Benzodiazepines Scrn (NEGATIVE) U Cocaine Metab Screen (NEGATIVE) U Marijuana (THC) Screen (NEGATIVE) Ethyl Alcohol (0.00) gm% 05/07/18 05/07/18 05/07/18 Range/Units 10:35 12:04 12:04 WBC (4.23-9.07) K/mm3 RBC (4.63-6.08) M/mm3 Hgb (13.7-17.5) gm/L Hct (40.1-51.0) % MCV (79.0-92.2) fl MCH (25.7-32.2) pg MCHC (32.2-35.5) g/dl RDW Std Deviation (35.1-43.9) fL Plt Count (163-337) K/mm3 MPV (9.4-12.3) fl Neutrophils % (Manual) (40-60) % Band Neutrophils % (0-10) % Lymphocytes % (Manual) (20-40) % Atypical Lymphs % % Monocytes % (Manual) (2-10) % Eosinophils % (Manual) (0.8-7.0) % Basophils % (Manual) (0.2-1.2) Platelet Estimate RBC Morph Comment ESR (0-15) mm/hr PT (9.5-12.1) SECONDS INR APTT (24-31) SECONDS Sodium (136-145) mEq/L Potassium (3.5-5.1) mEq/L Chloride (98-107) mEq/L Carbon Dioxide (21-32) mEq/L Anion Gap (5-15) BUN (7-18) mg/dL Creatinine (0.7-1.3) mg/dL Est Cr Clr Drug Dosing mL/min Estimated GFR (MDRD) (>60) mL/min BUN/Creatinine Ratio (14-18) Glucose (80-115) mg/dL Hemoglobin A1c (4.50-6.20) % Calcium (8.5-10.1) mg/dL Magnesium (1.8-2.4) mg/dl Total Bilirubin (0.2-1.0) mg/dL AST (15-37) U/L ALT (16-63) U/L Alkaline Phosphatase (46-116) U/L Troponin I (0.00-0.056) ng/mL C-Reactive Protein (<1.0) mg/dL NT-Pro-B Natriuret Pep (0-125) pg/mL Total Protein (6.4-8.2) g/dl Albumin (3.4-5.0) g/dl Globulin gm/dL Albumin/Globulin Ratio (1-2) Lipase 100 (73-393) U/L Urine Color Yellow (Yellow) Urine Appearance Clear (Clear) Urine pH 6.5 (5.0-8.0) Ur Specific [place] 1.015 (1.005-1.030) Urine Protein Negative (Negative) Urine Glucose (UA) 2+ H (Negative) Urine Ketones Negative (Negative) Urine Occult Blood Negative (Negative) Urine Nitrite Negative (Negative) Urine Bilirubin Negative (Negative) Urine Urobilinogen 0.2 (0.2-1.0) Ur Leukocyte Esterase Negative (Negative) Urine RBC Not seen (0-5) /hpf Urine WBC 0-5 (0-5) /hpf Ur Epithelial Cells Not seen (0-5) /hpf Urine Bacteria Not seen (FEW) /hpf Urine Mucus Few (FEW) /hpf Urine Opiates Screen Negative (NEGATIVE) Ur Buprenorphine Scrn Negative (NEGATIVE) Ur Oxycodone Screen Negative (NEGATIVE) Urine Methadone Screen Negative (NEGATIVE) Ur Propoxyphene Screen Negative (NEGATIVE) Ur Barbiturates Screen Negative (NEGATIVE) Ur Tricyclics Screen Negative (NEGATIVE) Ur Phencyclidine Scrn Negative (NEGATIVE) Ur Amphetamine Screen Negative (NEGATIVE) U Methamphetamines Scrn Negative (NEGATIVE) U Benzodiazepines Scrn Negative (NEGATIVE) U Cocaine Metab Screen Negative (NEGATIVE) U Marijuana (THC) Screen Negative (NEGATIVE) Ethyl Alcohol (0.00) gm% Result Diagrams: 05/07/18 10:35 05/07/18 10:35 - Problem List (1) Cerebrovascular accident (CVA) determined by clinical assessment SNOMED Code(s): 564737728, 313160878 ICD Code: I63.9 - CEREBRAL INFARCTION, UNSPECIFIED Status: Acute Priority : High Current Visit: Yes (2) Diabetes mellitus, new onset SNOMED Code(s): 941738586, 907225622 ICD Code: E11.9 - TYPE 2 DIABETES MELLITUS WITHOUT COMPLICATIONS Status: Acute Priority: High Current Visit: Yes (3) HLD (hyperlipidemia) SNOMED Code(s): 05706351 ICD Code: E78.5 - HYPERLIPIDEMIA, UNSPECIFIED Status: Chronic Priority: Medium Current Visit: Yes Qualifiers: Hyperlipidemia type: unspecified Qualified Code(s): E78.5 - Hyperlipidemia , unspecified (4) HTN (hypertension) SNOMED Code(s): 38588467 ICD Code: I10 - ESSENTIAL (PRIMARY) HYPERTENSION Status: Chronic Priority : Medium Current Visit: Yes Qualifiers: Hypertension type: unspecified Qualified Code(s): I10 - Essential (primary ) hypertension (5) Malignant hypertension SNOMED Code(s): 87612668 ICD Code: I10 - ESSENTIAL (PRIMARY) HYPERTENSION Status: Acute Priority: High Current Visit: Yes (6) Acute hyperglycemia SNOMED Code(s): 581144894 ICD Code: R73.9 - HYPERGLYCEMIA, UNSPECIFIED Status: Acute Priority: High Current Visit: Yes (7) Alcohol abuse SNOMED Code(s): 48071544 ICD Code: F10.10 - ALCOHOL ABUSE, UNCOMPLICATED Status: Chronic Priority : High Current Visit: Yes (8) Hypomagnesemia SNOMED Code(s): 410317341 ICD Code: E83.42 - HYPOMAGNESEMIA Status: Acute Priority: High Current Visit: Yes (9) Hyponatremia SNOMED Code(s): 32330084 ICD Code: E87.1 - HYPO-OSMOLALITY AND HYPONATREMIA Status: Acute Priority : Medium Current Visit: Yes (10) Medical non-compliance SNOMED Code(s): 400035239 ICD Code: Z91.19 - PATIENT'S NONCOMPLIANCE W OTH MEDICAL TREATMENT AND REGIMEN Status: Acute Priority: High Current Visit: Yes (11) Elevated brain natriuretic peptide (BNP) level SNOMED Code(s): 745202355, 922851369 ICD Code: R79.89 - OTHER SPECIFIED ABNORMAL FINDINGS OF BLOOD CHEMISTRY Status: Acute Current Visit: Yes Problem List Initiated/Reviewed/Updated: Yes Orders Last 24hrs: Active Orders 24 hr Category Date Time Status Admission Status [Patient Status] [ADT] Routine ADT 05/07/18 12:12 Active Aspiration Precautions [RC] ASDIRECTED Care 05/07/18 12:40 Ordered Blood Glucose Check, Bedside [RC] ONETIME Care 05/07/18 10:29 Active Blood Glucose Check, Bedside [RC] QIDACANDBED Care 05/07/18 12:49 Ordered CIWAA Assessment [RC] Q1HR Care 05/07/18 12:32 Ordered Cardiac Monitoring [RC] CONTINUOUS Care 05/07/18 12:37 Ordered Height and Weight [RC] DAILY Care 05/07/18 12:37 Ordered Intake and Output [RC] QSHIFT Care 05/07/18 12:37 Ordered Neuro Check [RC] BID Care 05/07/18 12:40 Ordered Notify Provider Consults [RC] ASDIRECTED Care 05/07/18 12:39 Ordered Nursing Bedside Swallow Screen [RC] ASDIRECTED Care 05/07/18 12:41 Ordered Oxygen Therapy [RC] PRN Care 05/07/18 12:37 Ordered Pulse Oximetry [RC] PRN Care 05/07/18 12:37 Ordered RT Aerosol Therapy [RC] ASDIRECTED Care 05/07/18 12:39 Ordered Up With Assistance [RC] ASDIRECTED Care 05/07/18 12:37 Ordered VTE/DVT Education [RC] PER UNIT ROUTINE Care 05/07/18 12:37 Ordered Vital Signs [RC] Q4H Care 05/07/18 12:37 Ordered Consult to Case Management [CONS] Routine Cons 05/07/18 12:37 Ordered Consult to Physician [CONS] Routine Cons 05/07/18 12:37 Ordered Consult to Fret Saw Operator [CONS] Routine Cons 05/07/18 12:37 Ordered Consult to Speech Language Pathology [PLASTERER JOURNEYMAN Evaluation Cons 05/07/18 12:47 Ordered and Treatment] [CONS] Routine Consult to Spiritual Care [CONS] Routine Cons 05/07/18 12:37 Ordered OT Evaluation and Treatment [CONS] Routine Cons 05/07/18 12:37 Ordered PT Evaluation and Treatment [CONS] Routine Cons 05/07/18 12:37 Ordered Nothing per Oral Now Diet [DIET] Diet 05/07/18 Dinner Ordered Brain wo Cont [MR] Routine Exams 05/08/18 08:00 Ordered Carotid Comp [US] Routine Exams 05/07/18 12:37 Ordered Echo Comp wo Cont [US] Routine Exams 05/07/18 12:36 Ordered BASIC METABOLIC PANEL,BMP [CHEM] AM Lab 05/08/18 05:11 Ordered BASIC METABOLIC PANEL,BMP [CHEM] AM Lab 05/09/18 05:11 Ordered BASIC METABOLIC PANEL,BMP [CHEM] AM Lab 05/10/18 05:11 Ordered BASIC METABOLIC PANEL,BMP [CHEM] AM Lab 05/11/18 05:11 Ordered CBC WITH AUTO DIFF [HEME] AM Lab 05/08/18 05:11 Ordered CBC WITH AUTO DIFF [HEME] AM Lab 05/09/18 05:11 Ordered CBC WITH AUTO DIFF [HEME] AM Lab 05/10/18 05:11 Ordered CBC WITH AUTO DIFF [HEME] AM Lab 05/11/18 05:11 Ordered LIPID PANEL [CHEM] Routine Lab 05/08/18 05:11 Ordered MAGNESIUM [CHEM] AM Lab 05/08/18 05:11 Ordered MAGNESIUM [CHEM] AM Lab 05/09/18 05:11 Ordered MAGNESIUM [CHEM] AM Lab 05/10/18 05:11 Ordered MAGNESIUM [CHEM] AM Lab 05/11/18 05:11 Ordered Acetaminophen [Tylenol] Med 05/07/18 12:37 Ordered 650 mg PO Q4H PRN Acetaminophen/HYDROcodone [[place] 325-5 MG] Med 05/07/18 12:37 Ordered 1 tab PO Q4H PRN Albuterol/Ipratropium [DuoNeb 3.0-0.5 MG/3 ML] Med 05/07/18 12:37 Ordered 3 ml NEB Q4H PRN Bisacodyl [Dulcolax] Med 05/07/18 12:37 Ordered 5 mg PO DAILY PRN Dextrose 50% in Water Med 05/07/18 12:49 Ordered 50 ml IVPUSH ASDIRECTED PRN Docusate Sodium [Colace] Med 05/07/18 12:37 Ordered 100 mg PO BID PRN Docusate Sodium/Sennosides [Senna Plus] Med 05/07/18 12:37 Ordered 1 tab PO BID PRN Famotidine [Pepcid] Med 05/07/18 21:00 Ordered 20 mg PO BID Folic Acid Med 05/07/18 12:45 Ordered 1 mg PO DAILY Furosemide [Lasix] Med 05/08/18 09:00 Ordered 40 mg IVPUSH DAILY Insulin Aspart [NovoLOG] Med 05/07/18 17:00 Ordered See Protocol SUBCUT QIDACANDBED LORazepam [Ativan] Med 05/07/18 12:35 Ordered 2 mg IVPUSH Q4H PRN LORazepam [Ativan] Med 05/07/18 12:33 Ordered See Protocol IVPUSH Q1H PRN Lactated Ringers @ 75 MLS/HR(1000ml Bag) Med 05/07/18 12:45 Ordered Lactated Ringers [Ringers, Lactated] 1,000 ml IV ASDIRECTED Lisinopril [Prinivil] Med 05/08/18 09:00 Active 5 mg PO DAILY Magnesium Rep Pharmacy to Dose [Pharmacy to Dose - Med 05/07/18 12:45 Ordered Magnesium Replacement] 1 dose .XX ASDIRECTED Magnesium Sulfate/Water [Magnesium Sulfate 2 GM in Med 05/07/18 12:49 Ordered Water 50 ML] 2 gm Premix Bag 1 bag IV ONETIME Metoprolol Tartrate [Lopressor] Med 05/07/18 12:33 Ordered 5 mg IVPUSH Q4H PRN Multivitamins,Therapeutic [Thera] Med 05/07/18 12:45 Ordered 1 each PO DAILY Nicotine [Habitrol] Med 05/07/18 12:45 Ordered 21 mg TRDERM DAILY Ondansetron [Zofran ODT] Med 05/07/18 12:37 Ordered 4 mg PO Q6H PRN Ondansetron [Zofran] Med 05/07/18 12:37 Ordered 4 mg IV Q6H PRN Polyethylene Glycol 3350 [MiraLAX] Med 05/07/18 12:37 Ordered 17 gm PO DAILY PRN Potassium Rep Pharmacy to Dose [Pharmacy to Dose - Med 05/07/18 12:45 Ordered Potassium Replacement] 1 dose .XX ASDIRECTED Remove Patch Med 05/08/18 09:00 Active 0 ea TRDERM DAILY Sodium Chloride 0.9% [Normal Saline] 1,000 ml Med 05/07/18 10:30 Active IV ASDIRECTED Thiamine [Vitamin B-1] Med 05/07/18 12:45 Ordered 100 mg PO DAILY hydrALAZINE [Apresoline] Med 05/07/18 12:33 Active 10 mg IVPUSH Q6H PRN Antiembolic Hose [OM.PC] Per Unit Routine Oth 05/07/18 12:38 Ordered Seizure Precautions [OM.PC] Routine Oth 05/07/18 12:40 Ordered Sequential Compression Device [OM.PC] Per Unit Routine Oth 05/07/18 12:37 Ordered Resuscitation Status Routine Resus Stat 05/07/18 12:37 Ordered Medication Orders Acetaminophen (Tylenol) 650 mg PO Q4H PRN PRN Reason: Pain (Mild 1-3)/fever Hydrocodone Bitart/Acetaminophen ([place] 325-5 Mg) 1 tab PO Q4H PRN PRN Reason: Pain (moderate 4-6) Albuterol/Ipratropium (Duoneb 3.0-0.5 Mg/3 Ml) 3 ml NEB Q4H PRN PRN Reason: Shortness Of Breath/wheezing Bisacodyl (Dulcolax) 5 mg PO DAILY PRN PRN Reason: Constipation Dextrose/Water (Dextrose 50% In Water) 50 ml IVPUSH ASDIRECTED PRN PRN Reason: Hypoglycemia Docusate Sodium (Colace) 100 mg PO BID PRN PRN Reason: Constipation Famotidine (Pepcid) 20 mg PO BID [facility] Folic Acid (Folic Acid) 1 mg PO DAILY [facility] Furosemide (Lasix) 40 mg IVPUSH DAILY [facility] Hydralazine HCl (Apresoline) 10 mg IVPUSH Q6H PRN PRN Reason: Hypertension Sodium Chloride (Normal Saline) 1,000 mls @ 100 mls/hr IV ASDIRECTED [facility] Last Admin: 05/07/18 10:43 Dose: 100 mls/hr Lactated Ringer's (Ringers, Lactated) 1,000 mls @ 75 mls/hr IV ASDIRECTED [facility] Stop: 05/09/18 02:04 Magnesium Sulfate 2 gm/ Premix 50 mls @ 25 mls/hr IV ONETIME ONE Stop: 05/07/18 14:48 Insulin Aspart (Novolog) 0 unit SUBCUT QIDACANDBED [facility]; Protocol Lisinopril (Prinivil) 5 mg PO DAILY [facility] Lorazepam (Ativan) 0 mg IVPUSH Q1H PRN; Protocol PRN Reason: withdrawl Lorazepam (Ativan) 2 mg IVPUSH Q4H PRN PRN Reason: Seizures Magnesium Sulfate (Pharmacy To Dose - Magnesium Replacement) 1 dose .XX ASDIRECTED [facility] Metoprolol Tartrate (Lopressor) 5 mg IVPUSH Q4H PRN PRN Reason: Tachycardia Miscellaneous Information (Remove Patch) 0 ea TRDERM DAILY [facility] Multivitamins (Thera) 1 each PO DAILY [facility] Nicotine (Habitrol) 21 mg TRDERM DAILY [facility] Last Admin: 05/07/18 12:57 Dose: 21 mg Ondansetron HCl (Zofran) 4 mg IV Q6H PRN PRN Reason: Nausea/Vomiting Ondansetron HCl (Zofran Odt) 4 mg PO Q6H PRN PRN Reason: nausea, able to take PO Polyethylene Glycol (Miralax) 17 gm PO DAILY PRN PRN Reason: Constipation Potassium Chloride (Pharmacy To Dose - Potassium Replacement) 1 dose .XX ASDIRECTED [facility] Senna/Docusate Sodium (Senna Plus) 1 tab PO BID PRN PRN Reason: Constipation Thiamine HCl (Vitamin B-1) 100 mg PO DAILY [facility] [facility] Assessment/Plan Comment:: I/P: Acute: CVA -Reports right arm and leg discomfort for past week -Difficulty with speech and facial droop yesterday -Drove himself to ED -Risk factors: Hx/o HLD, HTN, "pre-diabetic", Daily ETOH use, Daily 1.5 pack smoker -Stopped taking statin and BP meds some time ago -CT negative for acute findings -Outside window for tPA -Carotid ultrasound -Echo -T4/TSH ordered -MRI in AM -Lipid panel -ASA - home dose -NPO for now until PLASTERER JOURNEYMAN can preform swallow evaluation -Aspiration/seizure precautions -Negative UA and UDS Elevated BNP -Suspect heart failure, although no documented history -3+ edema bilaterally up to knees -No pulmonary congestion noted on CXR -Echo in AM -40mg Lasix given in ED -> Continue -ACEI New onset DM -A1C 6.3 on 09/29/16, Now 10.9 -Sliding scale insulin -Diabetic ed consult -Food Production Worker consult -QID AC and Bedtime glucose checks -Microalbumin ordered Malignant HTN, improved -Hx/o HTN and stopped taking meds over one year ago - was on 20mg lisinopril per old notes -BP 217/117 in ED -Norvasc, ACEI, Lasix given in ed -Caution with CVA to lower BP too fast -5mg lisinopril daily -40mg IVP lasix daily -PRN hydralazine Chronic alcohol abuse -Reports 4 whiskey tavares daily (2-3 oz of ETOH per drink) -Folic acid/MV/Thiamine -CIWA protocol -Ativan for seizures -SA consult -Dr. Lafleur consult Tobacco use disorder -Reports 1.5 packs per day smoking -Cessation counseling -Nicotine patch Medical non-compliance -Was on statin previously but stopped as he didn't like how it mad him feel -Was on BP medications but stopped -PCP left town and didn't establish with a new provider -Discussed importance of medications and continued follow-up -Will need to establish with new PCP Hyponatremia, mild -Sodium 134 -IV fluids as ordered Hypomagnesemia -Magnesium 1.6 -2 gram supplemented -Pharmacy to monitor and supplement Chronic: HLD HTN Recurrent bronchitis COPD BPH Atherosclerotic disease Plan: Admit to ICU CM/SW for discharge planning PT/OT Other orders as indicated above Home meds as ordered Routine AM labs DVT/PE prophylaxis: VIC connor and Jose PLASTERER JOURNEYMAN evaluation Code status: Full Code; PCP: None
[2018-05-07] MEDS: Insulin Aspart 100 Units/ML 3 ML Pen SUBCUT SCH ×3 (14:31→23:19)
[2018-05-07] MEDS: Folic Acid 1 MG Tab PO SCH (14:46)
[2018-05-07] MEDS: Thiamine 100 MG Tab PO SCH (14:46)
[2018-05-07] MEDS: Multivitamins,Therapeutic Tab PO SCH (14:46)
[2018-05-07] MEDS ORDERED: Dextrose 5%-0.9% NaCl 1,000 ML IV SCH (15:00)
--- NOTE | 2018-05-07 18:25 | US ---
Carotid ultrasound: Duplex and color flow imaging was obtained of the carotid arteries. Moderate amount of plaque plaque identified within the right carotid bulb. More plaque is noted within the left carotid bulb and proximal ICA. Plaque on the right side appears calcified and shows irregular surface margin. Plaque on the left side is heterogeneous with smooth surface margins. Right side: CCA has a peak systolic velocity of 0.77 m/sec. ICA has a peak systolic velocity of 1.32 m/sec and peak end-diastolic velocity of 0.27 m/sec. ECA has a peak systolic velocity of 0.90 m/sec. ICA/CCA ratio is 0.48. Vertebral artery has a peak systolic velocity of 1.4. Left side: CCA has a peak systolic velocity of 0.83 m/sec. ICA has a peak systolic velocity of 1.54 m/sec and peak end-diastolic velocity of 0.34 m/sec. ECA has a peak systolic velocity of 0.77 m/sec. ICA/CCA ratio is 1.9. Vertebral artery has a peak systolic velocity of 0.33. Impression: 1. Plaque as noted above. Velocity measurements within the right internal carotid artery is felt to correspond to stenosis in the range of 1-49%. 2. Velocity measurements within the left internal carotid artery correspond to stenosis in the range of 50-79%. Diagnostic code #3
[2018-05-07] MEDS: Famotidine 20 MG Tab PO SCH (20:53)
[2018-05-07] MEDS ORDERED: amLODIPine 10 MG Tab PO SCH (21:00)
--- NOTE | 2018-05-08 00:42 | CONS ---
CONSULTING PHYSICIAN: Deandre Lafleur MD DATE OF CONSULTATION: 05/07/2018 This is a 60-minute inpatient clinical event. IDENTIFICATION: The patient is a 67-year-old male who is admitted to the MICU at [facility] in [place], [place]. He is seen for psychiatric evaluation. CHIEF COMPLAINT: "I had a stroke." HISTORY OF PRESENT ILLNESS: The patient is a 67-year-old male who reports that he had a stroke within the last 24 hours. He states symptoms that were neurologic started "about a week ago," unfortunately, he started noticing he was having some weakness in his right extremities, both upper and lower. Seems like his symptoms seem to have resolved, but then after few days, things started to get worse again yesterday and he started noticing he was getting weak and he started getting a facial droop and slurring of speech. He was in the ER and assessed and then admitted earlier today to the MICU for medical and neurologic stabilization. On interview, the patient is cognitively oriented x3, and he denies any previous mental health history. He denies any problems with depression or anxiety. He does state he smokes 1-1/2 pack per day of cigarettes. He drinks "about 4 whiskeys in tavares at night." He again is obviously unhappy about his medical situation, but he is happy that he is getting that addressed medically and he denies any problems with depression beforehand or any need for psychiatric intervention at this point in time when asked directly if he felt he needed any help with depression or anxiety. MEDICATIONS: At the time of presentation, none prior to admission. ALLERGIES: The patient is allergic to tetanus. PAST MEDICAL HISTORY: Status post CVA. REVIEW OF SYSTEMS: Aside from neurologic, all other major organ systems are negative at this point in time for acute difficulties or complications. FAMILY PSYCHIATRIC AND CD HISTORY: The patient reports father has a history of dementia. PAST PSYCHIATRIC AND CD HISTORY: Again, essentially negative. The patient reports he is a 1-1/2 pack per day smoker. He reports 4 whiskey in tavares per night, but denies any previous psychiatric hospitalizations or chemical dependency treatments and denies any previous psychiatric medication history. Also denies any previous suicide attempts. SOCIAL HISTORY: The patient was born and raised in [place], [place]. He lives in [place] by himself. He is retired, used to work at [employer]. He has 4 children who live in [place] with whom he is close to and who are supportive of him. MENTAL STATUS EXAM: The patient is a 67-year-old white male in no apparent distress. Speech is of regular rate and rhythm. The patient is cognitively oriented x3. Psychomotor activity is within normal limits. There are no abnormal motor movements or tics observed. The patient does have a left facial droop that is noticeable during the interview. Mood is tired. Affect is cooperative overall for the purposes of the inpatient consult. There is no behavioral or stated evidence of acute suicidal or homicidal ideation or acute psychotic, delusional, or paranoid symptoms. Thought processes are intact and organized. There are no manic symptoms or loose associations evident. Judgment and insight appear unimpaired at this point in time. Motivation for help appears good. VITALS: 151/85, 75, 70, 98.7 degrees. IMPRESSION: Humble I: Depression, NOS F32.9. Humble II: None. Humble III: Status post cerebrovascular accident. Humble IV: Severe. Humble V: 50. PLAN: 1. Sobriety. 2. Smoking cessation is recommended going forward. 3. Other medications and treatment planning as supposed and implemented by patient's inpatient MICU team. 4. We will continue to follow up with the patient on an as-needed basis while he remains on the inpatient MICU. 5. We will follow up with the patient sooner if any complications in the interim. 6. Pastoral guidance is recommended while patient is on the inpatient MICU. 7. Crisis plan is in place. ESTER /[id number]
[2018-05-08] MEDS: Insulin Aspart 100 Units/ML 3 ML Pen SUBCUT SCH ×4 (06:24→23:50)
--- NOTE | 2018-05-08 07:34 | PCM.PN ---
- General Info Date of Service: 05/08/18 Admission Dx/Problem (Free Text): Admission Diagnosis/Problem Admission Diagnosis/Problem CVA, Cerebrovascular accident Subjective Update: In to see lT. He is laying in bed and family is at bedside. Carotid US and echo have been performed. Will have MRI this afternoon. [employer]GER is scheduled for 1400 and diet will be advanced at that time accordingly. His lipid panel is quite bad. We discussed his prior statin use and he said he did not feel right while taking medications so he stopped all of them but his aspirin. Will restart his statin now as bot him and family are in agreement to this. Nursing has no other concerns. He has no concerns. Answered all patient and family questions. Functional Status: Reports: Pain Controlled, Ambulating, Urinating. 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 Denies: Fever, Fatigue, Malaise, Chills HEENT: Reports: No Symptoms. Denies: Eye Pain, Post Nasal Drip, Sinus Congestion, Sore Throat Pulmonary: Reports: Cough (states spearment on his mouth swabs make him cough ) . Denies: Shortness of Breath, Sputum, Wheezing Cardiovascular: Reports: Edema. Denies: Chest Pain, Palpitations, Dyspnea on Exertion, Lightheadedness Gastrointestinal: Reports: No Symptoms. Denies: Abdominal Pain, Constipation, Diarrhea, Nausea, Vomiting Genitourinary: Reports: No Symptoms Musculoskeletal: Reports: Arm Pain (mild right forearm - radial region ), Foot Pain (mild- bottom of right foot ). Denies: Neck Pain, Hand Pain, Joint Swelling Skin: Reports: No Symptoms Neurological: Reports: Numbness, Tingling, Trouble Speaking, Difficulty Walking , Weakness, Gait Disturbance. Denies: Confusion, Dizziness, Headache, Seizure, Syncope, Change in Speech Psychiatric: Reports: No Symptoms - Patient Data Vitals - Most Recent: Last Vital Signs Temp 97.8 F 05/08/18 07:31 Pulse 75 05/08/18 07:31 Resp 20 05/08/18 07:31 BP 160/84 H 05/08/18 07:31 Pulse Ox 100 05/08/18 07:31 Weight - Most Recent: 164 lb 9.6 oz I&O - Last 24 Hours: Intake & Output 05/07/18 05/08/18 05/08/18 22:59 06:59 14:59 Intake Total 641 500 Output Total 550 700 Balance 91 -200 Lab Results Last 24 Hours: Laboratory Results - last 24 hr 05/07/18 05/07/18 05/07/18 Range/Units 10:35 10:35 10:35 WBC 6.78 (4.23-9.07) K/mm3 RBC 4.96 (4.63-6.08) M/mm3 Hgb 15.2 (13.7-17.5) gm/L Hct 43.6 (40.1-51.0) % MCV 87.9 (79.0-92.2) fl MCH 30.6 (25.7-32.2) pg MCHC 34.9 (32.2-35.5) g/dl RDW Std Deviation 41.7 (35.1-43.9) fL Plt Count 194 (163-337) K/mm3 MPV 10.6 (9.4-12.3) fl Neut % (Auto) (34.0-67.9) % Lymph % (Auto) (21.8-53.1) % [place] % (Auto) (5.3-12.2) % Eos % (Auto) (0.8-7.0) Baso % (Auto) (0.1-1.2) % Neut # (Auto) (1.78-5.38) K/mm3 Lymph # (Auto) (1.32-3.57) K/mm3 [place] # (Auto) (0.30-0.82) K/mm3 Eos # (Auto) (0.04-0.54) K/mm3 Baso # (Auto) (0.01-0.08) K/mm3 Neutrophils % (Manual) 64 H (40-60) % Band Neutrophils % 1 (0-10) % Lymphocytes % (Manual) 30 (20-40) % Atypical Lymphs % 0 % Monocytes % (Manual) 4 (2-10) % Eosinophils % (Manual) 0 L (0.8-7.0) % Basophils % (Manual) 1 (0.2-1.2) Platelet Estimate Adequate RBC Morph Comment Normal ESR (0-15) mm/hr PT 10.0 (9.5-12.1) SECONDS INR < 0.93 APTT 28 (24-31) SECONDS Sodium 134 L (136-145) mEq/L Potassium 3.9 (3.5-5.1) mEq/L Chloride 99 (98-107) mEq/L Carbon Dioxide 23 (21-32) mEq/L Anion Gap 15.9 H (5-15) BUN 14 (7-18) mg/dL Creatinine 0.9 (0.7-1.3) mg/dL Est Cr Clr Drug Dosing 73.44 mL/min Estimated GFR (MDRD) > 60 (>60) mL/min BUN/Creatinine Ratio 15.6 (14-18) Glucose 259 H (80-115) mg/dL POC Glucose (80-115) mg/dL Hemoglobin A1c (4.50-6.20) % Calcium 9.4 (8.5-10.1) mg/dL Magnesium 1.6 L (1.8-2.4) mg/dl Total Bilirubin 0.5 (0.2-1.0) mg/dL AST 18 (15-37) U/L ALT 22 (16-63) U/L Alkaline Phosphatase 108 (46-116) U/L Troponin I < 0.017 (0.00-0.056) ng/mL C-Reactive Protein 0.3 (<1.0) mg/dL NT-Pro-B Natriuret Pep (0-125) pg/mL Total Protein 8.0 (6.4-8.2) g/dl Albumin 3.7 (3.4-5.0) g/dl Globulin 4.3 gm/dL Albumin/Globulin Ratio 0.9 L (1-2) Triglycerides (<150) mg/dL Cholesterol (<200) mg/dL LDL Cholesterol Direct (<100) mg/dL HDL Cholesterol (40-59) mg/dL Lipase (73-393) U/L Free T4 (0.76-1.46) ng/dL TSH 3rd Generation (0.358-3.74) uIU/mL Urine Color (Yellow) Urine Appearance (Clear) Urine pH (5.0-8.0) Ur Specific [place] (1.005-1.030) Urine Protein (Negative) Urine Glucose (UA) (Negative) Urine Ketones (Negative) Urine Occult Blood (Negative) Urine Nitrite (Negative) Urine Bilirubin (Negative) Urine Urobilinogen (0.2-1.0) Ur Leukocyte Esterase (Negative) Urine RBC (0-5) /hpf Urine WBC (0-5) /hpf Ur Epithelial Cells (0-5) /hpf Urine Bacteria (FEW) /hpf Urine Mucus (FEW) /hpf Ur Random Microalbumin (1.3-20.0) mg/L Urine Opiates Screen (NEGATIVE) Ur Buprenorphine Scrn (NEGATIVE) Ur Oxycodone Screen (NEGATIVE) Urine Methadone Screen (NEGATIVE) Ur Propoxyphene Screen (NEGATIVE) Ur Barbiturates Screen (NEGATIVE) Ur Tricyclics Screen (NEGATIVE) Ur Phencyclidine Scrn (NEGATIVE) Ur Amphetamine Screen (NEGATIVE) U Methamphetamines Scrn (NEGATIVE) U Benzodiazepines Scrn (NEGATIVE) U Cocaine Metab Screen (NEGATIVE) U Marijuana (THC) Screen (NEGATIVE) Ethyl Alcohol 0.00 (0.00) gm% 05/07/18 05/07/18 05/07/18 Range/Units 10:35 10:35 10:35 WBC (4.23-9.07) K/mm3 RBC (4.63-6.08) M/mm3 Hgb (13.7-17.5) gm/L Hct (40.1-51.0) % MCV (79.0-92.2) fl MCH (25.7-32.2) pg MCHC (32.2-35.5) g/dl RDW Std Deviation (35.1-43.9) fL Plt Count (163-337) K/mm3 MPV (9.4-12.3) fl Neut % (Auto) (34.0-67.9) % Lymph % (Auto) (21.8-53.1) % [place] % (Auto) (5.3-12.2) % Eos % (Auto) (0.8-7.0) Baso % (Auto) (0.1-1.2) % Neut # (Auto) (1.78-5.38) K/mm3 Lymph # (Auto) (1.32-3.57) K/mm3 [place] # (Auto) (0.30-0.82) K/mm3 Eos # (Auto) (0.04-0.54) K/mm3 Baso # (Auto) (0.01-0.08) K/mm3 Neutrophils % (Manual) (40-60) % Band Neutrophils % (0-10) % Lymphocytes % (Manual) (20-40) % Atypical Lymphs % % Monocytes % (Manual) (2-10) % Eosinophils % (Manual) (0.8-7.0) % Basophils % (Manual) (0.2-1.2) Platelet Estimate RBC Morph Comment ESR 35 H (0-15) mm/hr PT (9.5-12.1) SECONDS INR APTT (24-31) SECONDS Sodium (136-145) mEq/L Potassium (3.5-5.1) mEq/L Chloride (98-107) mEq/L Carbon Dioxide (21-32) mEq/L Anion Gap (5-15) BUN (7-18) mg/dL Creatinine (0.7-1.3) mg/dL Est Cr Clr Drug Dosing mL/min Estimated GFR (MDRD) (>60) mL/min BUN/Creatinine Ratio (14-18) Glucose (80-115) mg/dL POC Glucose (80-115) mg/dL Hemoglobin A1c 10.90 H (4.50-6.20) % Calcium (8.5-10.1) mg/dL Magnesium (1.8-2.4) mg/dl Total Bilirubin (0.2-1.0) mg/dL AST (15-37) U/L ALT (16-63) U/L Alkaline Phosphatase (46-116) U/L Troponin I (0.00-0.056) ng/mL C-Reactive Protein (<1.0) mg/dL NT-Pro-B Natriuret Pep 2742 H (0-125) pg/mL Total Protein (6.4-8.2) g/dl Albumin (3.4-5.0) g/dl Globulin gm/dL Albumin/Globulin Ratio (1-2) Triglycerides (<150) mg/dL Cholesterol (<200) mg/dL LDL Cholesterol Direct (<100) mg/dL HDL Cholesterol (40-59) mg/dL Lipase (73-393) U/L Free T4 (0.76-1.46) ng/dL TSH 3rd Generation (0.358-3.74) uIU/mL Urine Color (Yellow) Urine Appearance (Clear) Urine pH (5.0-8.0) Ur Specific [place] (1.005-1.030) Urine Protein (Negative) Urine Glucose (UA) (Negative) Urine Ketones (Negative) Urine Occult Blood (Negative) Urine Nitrite (Negative) Urine Bilirubin (Negative) Urine Urobilinogen (0.2-1.0) Ur Leukocyte Esterase (Negative) Urine RBC (0-5) /hpf Urine WBC (0-5) /hpf Ur Epithelial Cells (0-5) /hpf Urine Bacteria (FEW) /hpf Urine Mucus (FEW) /hpf Ur Random Microalbumin (1.3-20.0) mg/L Urine Opiates Screen (NEGATIVE) Ur Buprenorphine Scrn (NEGATIVE) Ur Oxycodone Screen (NEGATIVE) Urine Methadone Screen (NEGATIVE) Ur Propoxyphene Screen (NEGATIVE) Ur Barbiturates Screen (NEGATIVE) Ur Tricyclics Screen (NEGATIVE) Ur Phencyclidine Scrn (NEGATIVE) Ur Amphetamine Screen (NEGATIVE) U Methamphetamines Scrn (NEGATIVE) U Benzodiazepines Scrn (NEGATIVE) U Cocaine Metab Screen (NEGATIVE) U Marijuana (THC) Screen (NEGATIVE) Ethyl Alcohol (0.00) gm% 05/07/18 05/07/18 05/07/18 Range/Units 10:35 10:35 12:04 WBC (4.23-9.07) K/mm3 RBC (4.63-6.08) M/mm3 Hgb (13.7-17.5) gm/L Hct (40.1-51.0) % MCV (79.0-92.2) fl MCH (25.7-32.2) pg MCHC (32.2-35.5) g/dl RDW Std Deviation (35.1-43.9) fL Plt Count (163-337) K/mm3 MPV (9.4-12.3) fl Neut % (Auto) (34.0-67.9) % Lymph % (Auto) (21.8-53.1) % [place] % (Auto) (5.3-12.2) % Eos % (Auto) (0.8-7.0) Baso % (Auto) (0.1-1.2) % Neut # (Auto) (1.78-5.38) K/mm3 Lymph # (Auto) (1.32-3.57) K/mm3 [place] # (Auto) (0.30-0.82) K/mm3 Eos # (Auto) (0.04-0.54) K/mm3 Baso # (Auto) (0.01-0.08) K/mm3 Neutrophils % (Manual) (40-60) % Band Neutrophils % (0-10) % Lymphocytes % (Manual) (20-40) % Atypical Lymphs % % Monocytes % (Manual) (2-10) % Eosinophils % (Manual) (0.8-7.0) % Basophils % (Manual) (0.2-1.2) Platelet Estimate RBC Morph Comment ESR (0-15) mm/hr PT (9.5-12.1) SECONDS INR APTT (24-31) SECONDS Sodium (136-145) mEq/L Potassium (3.5-5.1) mEq/L Chloride (98-107) mEq/L Carbon Dioxide (21-32) mEq/L Anion Gap (5-15) BUN (7-18) mg/dL Creatinine (0.7-1.3) mg/dL Est Cr Clr Drug Dosing mL/min Estimated GFR (MDRD) (>60) mL/min BUN/Creatinine Ratio (14-18) Glucose (80-115) mg/dL POC Glucose (80-115) mg/dL Hemoglobin A1c (4.50-6.20) % Calcium (8.5-10.1) mg/dL Magnesium (1.8-2.4) mg/dl Total Bilirubin (0.2-1.0) mg/dL AST (15-37) U/L ALT (16-63) U/L Alkaline Phosphatase (46-116) U/L Troponin I (0.00-0.056) ng/mL C-Reactive Protein (<1.0) mg/dL NT-Pro-B Natriuret Pep (0-125) pg/mL Total Protein (6.4-8.2) g/dl Albumin (3.4-5.0) g/dl Globulin gm/dL Albumin/Globulin Ratio (1-2) Triglycerides (<150) mg/dL Cholesterol (<200) mg/dL LDL Cholesterol Direct (<100) mg/dL HDL Cholesterol (40-59) mg/dL Lipase 100 (73-393) U/L Free T4 1.07 (0.76-1.46) ng/dL TSH 3rd Generation 0.719 (0.358-3.74) uIU/mL Urine Color Yellow (Yellow) Urine Appearance Clear (Clear) Urine pH 6.5 (5.0-8.0) Ur Specific [place] 1.015 (1.005-1.030) Urine Protein Negative (Negative) Urine Glucose (UA) 2+ H (Negative) Urine Ketones Negative (Negative) Urine Occult Blood Negative (Negative) Urine Nitrite Negative (Negative) Urine Bilirubin Negative (Negative) Urine Urobilinogen 0.2 (0.2-1.0) Ur Leukocyte Esterase Negative (Negative) Urine RBC Not seen (0-5) /hpf Urine WBC 0-5 (0-5) /hpf Ur Epithelial Cells Not seen (0-5) /hpf Urine Bacteria Not seen (FEW) /hpf Urine Mucus Few (FEW) /hpf Ur Random Microalbumin (1.3-20.0) mg/L Urine Opiates Screen (NEGATIVE) Ur Buprenorphine Scrn (NEGATIVE) Ur Oxycodone Screen (NEGATIVE) Urine Methadone Screen (NEGATIVE) Ur Propoxyphene Screen (NEGATIVE) Ur Barbiturates Screen (NEGATIVE) Ur Tricyclics Screen (NEGATIVE) Ur Phencyclidine Scrn (NEGATIVE) Ur Amphetamine Screen (NEGATIVE) U Methamphetamines Scrn (NEGATIVE) U Benzodiazepines Scrn (NEGATIVE) U Cocaine Metab Screen (NEGATIVE) U Marijuana (THC) Screen (NEGATIVE) Ethyl Alcohol (0.00) gm% 05/07/18 05/07/18 05/07/18 Range/Units 12:04 12:04 14:13 WBC (4.23-9.07) K/mm3 RBC (4.63-6.08) M/mm3 Hgb (13.7-17.5) gm/L Hct (40.1-51.0) % MCV (79.0-92.2) fl MCH (25.7-32.2) pg MCHC (32.2-35.5) g/dl RDW Std Deviation (35.1-43.9) fL Plt Count (163-337) K/mm3 MPV (9.4-12.3) fl Neut % (Auto) (34.0-67.9) % Lymph % (Auto) (21.8-53.1) % [place] % (Auto) (5.3-12.2) % Eos % (Auto) (0.8-7.0) Baso % (Auto) (0.1-1.2) % Neut # (Auto) (1.78-5.38) K/mm3 Lymph # (Auto) (1.32-3.57) K/mm3 [place] # (Auto) (0.30-0.82) K/mm3 Eos # (Auto) (0.04-0.54) K/mm3 Baso # (Auto) (0.01-0.08) K/mm3 Neutrophils % (Manual) (40-60) % Band Neutrophils % (0-10) % Lymphocytes % (Manual) (20-40) % Atypical Lymphs % % Monocytes % (Manual) (2-10) % Eosinophils % (Manual) (0.8-7.0) % Basophils % (Manual) (0.2-1.2) Platelet Estimate RBC Morph Comment ESR (0-15) mm/hr PT (9.5-12.1) SECONDS INR APTT (24-31) SECONDS Sodium (136-145) mEq/L Potassium (3.5-5.1) mEq/L Chloride (98-107) mEq/L Carbon Dioxide (21-32) mEq/L Anion Gap (5-15) BUN (7-18) mg/dL Creatinine (0.7-1.3) mg/dL Est Cr Clr Drug Dosing mL/min Estimated GFR (MDRD) (>60) mL/min BUN/Creatinine Ratio (14-18) Glucose (80-115) mg/dL POC Glucose 244 H (80-115) mg/dL Hemoglobin A1c (4.50-6.20) % Calcium (8.5-10.1) mg/dL Magnesium (1.8-2.4) mg/dl Total Bilirubin (0.2-1.0) mg/dL AST (15-37) U/L ALT (16-63) U/L Alkaline Phosphatase (46-116) U/L Troponin I (0.00-0.056) ng/mL C-Reactive Protein (<1.0) mg/dL NT-Pro-B Natriuret Pep (0-125) pg/mL Total Protein (6.4-8.2) g/dl Albumin (3.4-5.0) g/dl Globulin gm/dL Albumin/Globulin Ratio (1-2) Triglycerides (<150) mg/dL Cholesterol (<200) mg/dL LDL Cholesterol Direct (<100) mg/dL HDL Cholesterol (40-59) mg/dL Lipase (73-393) U/L Free T4 (0.76-1.46) ng/dL TSH 3rd Generation (0.358-3.74) uIU/mL Urine Color (Yellow) Urine Appearance (Clear) Urine pH (5.0-8.0) Ur Specific [place] (1.005-1.030) Urine Protein (Negative) Urine Glucose (UA) (Negative) Urine Ketones (Negative) Urine Occult Blood (Negative) Urine Nitrite (Negative) Urine Bilirubin (Negative) Urine Urobilinogen (0.2-1.0) Ur Leukocyte Esterase (Negative) Urine RBC (0-5) /hpf Urine WBC (0-5) /hpf Ur Epithelial Cells (0-5) /hpf Urine Bacteria (FEW) /hpf Urine Mucus (FEW) /hpf Ur Random Microalbumin 77.3 H (1.3-20.0) mg/L Urine Opiates Screen Negative (NEGATIVE) Ur Buprenorphine Scrn Negative (NEGATIVE) Ur Oxycodone Screen Negative (NEGATIVE) Urine Methadone Screen Negative (NEGATIVE) Ur Propoxyphene Screen Negative (NEGATIVE) Ur Barbiturates Screen Negative (NEGATIVE) Ur Tricyclics Screen Negative (NEGATIVE) Ur Phencyclidine Scrn Negative (NEGATIVE) Ur Amphetamine Screen Negative (NEGATIVE) U Methamphetamines Scrn Negative (NEGATIVE) U Benzodiazepines Scrn Negative (NEGATIVE) U Cocaine Metab Screen Negative (NEGATIVE) U Marijuana (THC) Screen Negative (NEGATIVE) Ethyl Alcohol (0.00) gm% 05/07/18 05/07/18 05/08/18 Range/Units 18:08 23:18 06:10 WBC 6.09 (4.23-9.07) K/mm3 RBC 4.76 (4.63-6.08) M/mm3 Hgb 14.6 (13.7-17.5) gm/L Hct 42.4 (40.1-51.0) % MCV 89.1 (79.0-92.2) fl MCH 30.7 (25.7-32.2) pg MCHC 34.4 (32.2-35.5) g/dl RDW Std Deviation 43.0 (35.1-43.9) fL Plt Count 177 (163-337) K/mm3 MPV 11.3 (9.4-12.3) fl Neut % (Auto) 63.1 (34.0-67.9) % Lymph % (Auto) 22.8 (21.8-53.1) % [place] % (Auto) 12.3 H (5.3-12.2) % Eos % (Auto) 1.3 (0.8-7.0) Baso % (Auto) 0.3 (0.1-1.2) % Neut # (Auto) 3.84 (1.78-5.38) K/mm3 Lymph # (Auto) 1.39 (1.32-3.57) K/mm3 [place] # (Auto) 0.75 (0.30-0.82) K/mm3 Eos # (Auto) 0.08 (0.04-0.54) K/mm3 Baso # (Auto) 0.02 (0.01-0.08) K/mm3 Neutrophils % (Manual) (40-60) % Band Neutrophils % (0-10) % Lymphocytes % (Manual) (20-40) % Atypical Lymphs % % Monocytes % (Manual) (2-10) % Eosinophils % (Manual) (0.8-7.0) % Basophils % (Manual) (0.2-1.2) Platelet Estimate RBC Morph Comment ESR (0-15) mm/hr PT (9.5-12.1) SECONDS INR APTT (24-31) SECONDS Sodium (136-145) mEq/L Potassium (3.5-5.1) mEq/L Chloride (98-107) mEq/L Carbon Dioxide (21-32) mEq/L Anion Gap (5-15) BUN (7-18) mg/dL Creatinine (0.7-1.3) mg/dL Est Cr Clr Drug Dosing mL/min Estimated GFR (MDRD) (>60) mL/min BUN/Creatinine Ratio (14-18) Glucose (80-115) mg/dL POC Glucose 209 H 193 H (80-115) mg/dL Hemoglobin A1c (4.50-6.20) % Calcium (8.5-10.1) mg/dL Magnesium (1.8-2.4) mg/dl Total Bilirubin (0.2-1.0) mg/dL AST (15-37) U/L ALT (16-63) U/L Alkaline Phosphatase (46-116) U/L Troponin I (0.00-0.056) ng/mL C-Reactive Protein (<1.0) mg/dL NT-Pro-B Natriuret Pep (0-125) pg/mL Total Protein (6.4-8.2) g/dl Albumin (3.4-5.0) g/dl Globulin gm/dL Albumin/Globulin Ratio (1-2) Triglycerides (<150) mg/dL Cholesterol (<200) mg/dL LDL Cholesterol Direct (<100) mg/dL HDL Cholesterol (40-59) mg/dL Lipase (73-393) U/L Free T4 (0.76-1.46) ng/dL TSH 3rd Generation (0.358-3.74) uIU/mL Urine Color (Yellow) Urine Appearance (Clear) Urine pH (5.0-8.0) Ur Specific [place] (1.005-1.030) Urine Protein (Negative) Urine Glucose (UA) (Negative) Urine Ketones (Negative) Urine Occult Blood (Negative) Urine Nitrite (Negative) Urine Bilirubin (Negative) Urine Urobilinogen (0.2-1.0) Ur Leukocyte Esterase (Negative) Urine RBC (0-5) /hpf Urine WBC (0-5) /hpf Ur Epithelial Cells (0-5) /hpf Urine Bacteria (FEW) /hpf Urine Mucus (FEW) /hpf Ur Random Microalbumin (1.3-20.0) mg/L Urine Opiates Screen (NEGATIVE) Ur Buprenorphine Scrn (NEGATIVE) Ur Oxycodone Screen (NEGATIVE) Urine Methadone Screen (NEGATIVE) Ur Propoxyphene Screen (NEGATIVE) Ur Barbiturates Screen (NEGATIVE) Ur Tricyclics Screen (NEGATIVE) Ur Phencyclidine Scrn (NEGATIVE) Ur Amphetamine Screen (NEGATIVE) U Methamphetamines Scrn (NEGATIVE) U Benzodiazepines Scrn (NEGATIVE) U Cocaine Metab Screen (NEGATIVE) U Marijuana (THC) Screen (NEGATIVE) Ethyl Alcohol (0.00) gm% 05/08/18 Range/Units 06:10 WBC (4.23-9.07) K/mm3 RBC (4.63-6.08) M/mm3 Hgb (13.7-17.5) gm/L Hct (40.1-51.0) % MCV (79.0-92.2) fl MCH (25.7-32.2) pg MCHC (32.2-35.5) g/dl RDW Std Deviation (35.1-43.9) fL Plt Count (163-337) K/mm3 MPV (9.4-12.3) fl Neut % (Auto) (34.0-67.9) % Lymph % (Auto) (21.8-53.1) % [place] % (Auto) (5.3-12.2) % Eos % (Auto) (0.8-7.0) Baso % (Auto) (0.1-1.2) % Neut # (Auto) (1.78-5.38) K/mm3 Lymph # (Auto) (1.32-3.57) K/mm3 [place] # (Auto) (0.30-0.82) K/mm3 Eos # (Auto) (0.04-0.54) K/mm3 Baso # (Auto) (0.01-0.08) K/mm3 Neutrophils % (Manual) (40-60) % Band Neutrophils % (0-10) % Lymphocytes % (Manual) (20-40) % Atypical Lymphs % % Monocytes % (Manual) (2-10) % Eosinophils % (Manual) (0.8-7.0) % Basophils % (Manual) (0.2-1.2) Platelet Estimate RBC Morph Comment ESR (0-15) mm/hr PT (9.5-12.1) SECONDS INR APTT (24-31) SECONDS Sodium 139 (136-145) mEq/L Potassium 3.5 (3.5-5.1) mEq/L Chloride 103 (98-107) mEq/L Carbon Dioxide 23 (21-32) mEq/L Anion Gap 16.5 H (5-15) BUN 11 (7-18) mg/dL Creatinine 0.9 (0.7-1.3) mg/dL Est Cr Clr Drug Dosing 73.44 mL/min Estimated GFR (MDRD) > 60 (>60) mL/min BUN/Creatinine Ratio 12.2 L (14-18) Glucose 237 H (80-115) mg/dL POC Glucose (80-115) mg/dL Hemoglobin A1c (4.50-6.20) % Calcium 8.8 (8.5-10.1) mg/dL Magnesium 1.9 (1.8-2.4) mg/dl Total Bilirubin (0.2-1.0) mg/dL AST (15-37) U/L ALT (16-63) U/L Alkaline Phosphatase (46-116) U/L Troponin I (0.00-0.056) ng/mL C-Reactive Protein (<1.0) mg/dL NT-Pro-B Natriuret Pep (0-125) pg/mL Total Protein (6.4-8.2) g/dl Albumin (3.4-5.0) g/dl Globulin gm/dL Albumin/Globulin Ratio (1-2) Triglycerides 154 H (<150) mg/dL Cholesterol 251 H (<200) mg/dL LDL Cholesterol Direct 191 H* (<100) mg/dL HDL Cholesterol 38.0 L (40-59) mg/dL Lipase (73-393) U/L Free T4 (0.76-1.46) ng/dL TSH 3rd Generation (0.358-3.74) uIU/mL Urine Color (Yellow) Urine Appearance (Clear) Urine pH (5.0-8.0) Ur Specific [place] (1.005-1.030) Urine Protein (Negative) Urine Glucose (UA) (Negative) Urine Ketones (Negative) Urine Occult Blood (Negative) Urine Nitrite (Negative) Urine Bilirubin (Negative) Urine Urobilinogen (0.2-1.0) Ur Leukocyte Esterase (Negative) Urine RBC (0-5) /hpf Urine WBC (0-5) /hpf Ur Epithelial Cells (0-5) /hpf Urine Bacteria (FEW) /hpf Urine Mucus (FEW) /hpf Ur Random Microalbumin (1.3-20.0) mg/L Urine Opiates Screen (NEGATIVE) Ur Buprenorphine Scrn (NEGATIVE) Ur Oxycodone Screen (NEGATIVE) Urine Methadone Screen (NEGATIVE) Ur Propoxyphene Screen (NEGATIVE) Ur Barbiturates Screen (NEGATIVE) Ur Tricyclics Screen (NEGATIVE) Ur Phencyclidine Scrn (NEGATIVE) Ur Amphetamine Screen (NEGATIVE) U Methamphetamines Scrn (NEGATIVE) U Benzodiazepines Scrn (NEGATIVE) U Cocaine Metab Screen (NEGATIVE) U Marijuana (THC) Screen (NEGATIVE) Ethyl Alcohol (0.00) gm% Med Orders - Current: Current Medications Acetaminophen (Tylenol) 650 mg PO Q4H PRN PRN Reason: Pain (Mild 1-3)/fever Hydrocodone Bitart/Acetaminophen ([place] 325-5 Mg) 1 tab PO Q4H PRN PRN Reason: Pain (moderate 4-6) Albuterol/Ipratropium (Duoneb 3.0-0.5 Mg/3 Ml) 3 ml NEB Q4H PRN PRN Reason: Shortness Of Breath/wheezing Bisacodyl (Dulcolax) 5 mg PO DAILY PRN PRN Reason: Constipation Dextrose/Water (Dextrose 50% In Water) 50 ml IVPUSH ASDIRECTED PRN PRN Reason: Hypoglycemia Docusate Sodium (Colace) 100 mg PO BID PRN PRN Reason: Constipation Famotidine (Pepcid) 20 mg PO BID [facility] Last Admin: 05/07/18 20:53 Dose: 20 mg Folic Acid (Folic Acid) 1 mg PO DAILY [facility] Last Admin: 05/07/18 14:46 Dose: Not Given Furosemide (Lasix) 40 mg IVPUSH DAILY [facility] Hydralazine HCl (Apresoline) 10 mg IVPUSH Q6H PRN PRN Reason: Hypertension Last Admin: 05/08/18 06:23 Dose: 10 mg Sodium Chloride (Normal Saline) 1,000 mls @ 100 mls/hr IV ASDIRECTED [facility] Last Admin: 05/07/18 10:43 Dose: 100 mls/hr Dextrose/Sodium Chloride (Dextrose 5%-Normal Saline) 1,000 mls @ 50 mls/hr IV ASDIRECTED [facility] Last Admin: 05/07/18 18:31 Dose: 50 mls/hr Insulin Aspart (Novolog) 0 unit SUBCUT QIDACANDBED [facility]; Protocol Last Admin: 05/08/18 06:24 Dose: 2 unit Lisinopril (Prinivil) 5 mg PO DAILY [facility] Lorazepam (Ativan) 0 mg IVPUSH Q1H PRN; Protocol PRN Reason: withdrawl Lorazepam (Ativan) 2 mg IVPUSH Q4H PRN PRN Reason: Seizures Magnesium Sulfate (Pharmacy To Dose - Magnesium Replacement) 1 dose .XX ASDIRECTED [facility] Metoprolol Tartrate (Lopressor) 5 mg IVPUSH Q4H PRN PRN Reason: Tachycardia Miscellaneous Information (Remove Patch) 0 ea TRDERM DAILY [facility] Multivitamins (Thera) 1 each PO DAILY [facility] Last Admin: 05/07/18 14:46 Dose: Not Given Nicotine (Habitrol) 21 mg TRDERM DAILY [facility] Last Admin: 05/07/18 12:57 Dose: 21 mg Ondansetron HCl (Zofran) 4 mg IV Q6H PRN PRN Reason: Nausea/Vomiting Ondansetron HCl (Zofran Odt) 4 mg PO Q6H PRN PRN Reason: nausea, able to take PO Polyethylene Glycol (Miralax) 17 gm PO DAILY PRN PRN Reason: Constipation Potassium Chloride (Pharmacy To Dose - Potassium Replacement) 1 dose .XX ASDIRECTED [facility] Senna/Docusate Sodium (Senna Plus) 1 tab PO BID PRN PRN Reason: Constipation Thiamine HCl (Vitamin B-1) 100 mg PO DAILY [facility] Last Admin: 05/07/18 14:46 Dose: Not Given Discontinued Medications Amlodipine Besylate (Norvasc) 10 mg PO BEDTIME [facility] Amlodipine Besylate (Norvasc) 10 mg PO ONETIME ONE Stop: 05/07/18 11:41 Last Admin: 05/07/18 11:43 Dose: 10 mg Aspirin (Aspirin) 162 mg PO ONETIME ONE Stop: 05/07/18 11:29 Last Admin: 05/07/18 11:35 Dose: 162 mg Enalaprilat (Vasotec Iv) 1.25 mg IVPUSH ONETIME ONE Stop: 05/07/18 11:35 Last Admin: 05/07/18 11:40 Dose: 1.25 mg Furosemide (Lasix) 40 mg IVPUSH NOW ONE Stop: 05/07/18 11:33 Last Admin: 05/07/18 11:38 Dose: 40 mg Lactated Ringer's (Ringers, Lactated) 1,000 mls @ 75 mls/hr IV ASDIRECTED [facility] Stop: 05/09/18 02:04 Magnesium Sulfate 2 gm/ Premix 50 mls @ 25 mls/hr IV ONETIME ONE Stop: 05/07/18 14:48 Last Admin: 05/07/18 13:42 Dose: 25 mls/hr Labetalol HCl (Normodyne) 20 mg IVPUSH ONETIME ONE; Protocol Stop: 05/07/18 11:01 Last Admin: 05/07/18 11:12 Dose: 20 mg - Exam Quality Assessment: DVT Prophylaxis General: Alert, Oriented, Cooperative, No Acute Distress HEENT: Pupils Equal, Pupils Reactive, EOMI, Mucous Membr. Moist/[place] Neck: Supple, Trachea Midline, No JVD Lungs: Clear to Auscultation, Normal Respiratory Effort Cardiovascular: Regular Rate, Regular Rhythm GI/Abdominal Exam: Normal Bowel Sounds, Soft, Non-Tender, No Organomegaly, No Distention, No Abnormal Bruit, No Mass, Pelvis Stable (Male) Exam: Deferred Back Exam: Normal Inspection, Full Range of Motion Extremities: Normal Inspection, Normal Range of Motion, Non-Tender, Normal Capillary Refill, Pedal Edema (1-2+ bilateral) Peripheral Pulses: 1+: Posterior Tibial (L), Posterior Tibial (R), Dorsalis Pedis (L), Dorsalis Pedis (R), 2+: Radial (L), Radial (R) Skin: Warm, Dry, Intact Neurological: No New Focal Deficit, Normal Tone, Strength Equal Bilateral, Cranial Nerves Intact, Other (Still has some slurred speach which has not changed in severity ). No: Normal Gait, Normal Speech Psy/Mental Status: Alert, Normal Affect, Normal Mood - Problem List & Annotations (1) Cerebrovascular accident (CVA) determined by clinical assessment SNOMED Code(s): [id number], [id number] Code(s): I63.9 - CEREBRAL INFARCTION, UNSPECIFIED Status: Acute Priority : High Current Visit: Yes (2) Diabetes mellitus, new onset SNOMED Code(s): 888250982, 310759953 Code(s): E11.9 - TYPE 2 DIABETES MELLITUS WITHOUT COMPLICATIONS Status: Acute Priority: High Current Visit: Yes (3) HLD (hyperlipidemia) SNOMED Code(s): 23345868 Code(s): E78.5 - HYPERLIPIDEMIA, UNSPECIFIED Status: Chronic Priority: Medium Current Visit: Yes Qualifiers: Hyperlipidemia type: unspecified Qualified Code(s): E78.5 - Hyperlipidemia , unspecified (4) HTN (hypertension) SNOMED Code(s): 54718516 Code(s): I10 - ESSENTIAL (PRIMARY) HYPERTENSION Status: Chronic Priority : Medium Current Visit: Yes Qualifiers: Hypertension type: unspecified Qualified Code(s): I10 - Essential (primary ) hypertension (5) Malignant hypertension SNOMED Code(s): 87036921 Code(s): I10 - ESSENTIAL (PRIMARY) HYPERTENSION Status: Acute Priority: High Current Visit: Yes (6) Acute hyperglycemia SNOMED Code(s): 879803044 Code(s): R73.9 - HYPERGLYCEMIA, UNSPECIFIED Status: Acute Priority: High Current Visit: Yes (7) Alcohol abuse SNOMED Code(s): 32490465 Code(s): F10.10 - ALCOHOL ABUSE, UNCOMPLICATED Status: Chronic Priority: High Current Visit: Yes (8) Hypomagnesemia SNOMED Code(s): 330302981 Code(s): E83.42 - HYPOMAGNESEMIA Status: Acute Priority: High Current Visit: Yes (9) Hyponatremia SNOMED Code(s): 11637239 Code(s): E87.1 - HYPO-OSMOLALITY AND HYPONATREMIA Status: Acute Priority : Medium Current Visit: Yes (10) Medical non-compliance SNOMED Code(s): 639591418 Code(s): Z91.19 - PATIENT'S NONCOMPLIANCE W OTH MEDICAL TREATMENT AND REGIMEN Status: Acute Priority: High Current Visit: Yes (11) Elevated brain natriuretic peptide (BNP) level SNOMED Code(s): 265314056, 394601905 Code(s): R79.89 - OTHER SPECIFIED ABNORMAL FINDINGS OF BLOOD CHEMISTRY Status: Acute Current Visit: Yes - Problem List Review Problem List Initiated/Reviewed/Updated: Yes - My Orders Last 24 Hours: My Active Orders 05/07/18 12:32 CIWAA Assessment [RC] Q4HR 05/07/18 12:33 LORazepam [Ativan] See Protocol IVPUSH Q1H PRN Metoprolol Tartrate [Lopressor] 5 mg IVPUSH Q4H PRN hydrALAZINE [Apresoline] 10 mg IVPUSH Q6H PRN 05/07/18 12:35 LORazepam [Ativan] 2 mg IVPUSH Q4H PRN 05/07/18 12:37 Cardiac Monitoring [RC] CONTINUOUS Height and Weight [RC] 0400 Intake and Output [RC] 04,16 Oxygen Therapy [RC] PRN Pulse Oximetry [RC] PRN Up With Assistance [RC] ASDIRECTED VTE/DVT Education [RC] PER UNIT ROUTINE Vital Signs [RC] Q4HR Consult to Case Management [CONS] Routine Consult to Physician [CONS] Routine Consult to Pipeline Inspector [CONS] Routine Consult to Spiritual Care [CONS] Routine OT Evaluation and Treatment [CONS] Routine PT Evaluation and Treatment [CONS] Routine Acetaminophen [Tylenol] 650 mg PO Q4H PRN Acetaminophen/HYDROcodone [[place] 325-5 MG] 1 tab PO Q4H PRN Albuterol/Ipratropium [DuoNeb 3.0-0.5 MG/3 ML] 3 ml NEB Q4H PRN Bisacodyl [Dulcolax] 5 mg PO DAILY PRN Docusate Sodium [Colace] 100 mg PO BID PRN Docusate Sodium/Sennosides [Senna Plus] 1 tab PO BID PRN Ondansetron [Zofran ODT] 4 mg PO Q6H PRN Ondansetron [Zofran] 4 mg IV Q6H PRN Polyethylene Glycol 3350 [MiraLAX] 17 gm PO DAILY PRN Resuscitation Status Routine 05/07/18 12:38 Antiembolic Hose [OM.PC] Per Unit Routine 05/07/18 12:39 Notify Provider Consults [RC] ASDIRECTED RT Aerosol Therapy [RC] .PRN 05/07/18 12:40 Aspiration Precautions [RC] ASDIRECTED Neuro Check [RC] Q4HR Seizure Precautions [OM.PC] Routine 05/07/18 12:41 Nursing Bedside Swallow Screen [RC] ASDIRECTED 05/07/18 12:45 Folic Acid 1 mg PO DAILY Magnesium Rep Pharmacy to Dose [Pharmacy to Dose - Magnesium Replacement] 1 dose .XX ASDIRECTED Multivitamins,Therapeutic [Thera] 1 each PO DAILY Potassium Rep Pharmacy to Dose [Pharmacy to Dose - Potassium Replacement] 1 dose .XX ASDIRECTED Thiamine [Vitamin B-1] 100 mg PO DAILY 05/07/18 12:47 Consult to Speech Language Pathology [TALENT ACQUISITION RELATIONSHIP MANAGER Evaluation and Treatment] [CONS] Routine 05/07/18 12:49 Blood Glucose Check, Bedside [RC] Q6HR Dextrose 50% in Water 50 ml IVPUSH ASDIRECTED PRN 05/07/18 13:00 Nicotine [Habitrol] 21 mg TRDERM DAILY 05/07/18 13:27 Consult to Diabetic Nurse Specialist [CONS] Routine Consult to Telesales Supervisor [CONS] Routine 05/07/18 17:00 Insulin Aspart [NovoLOG] See Protocol SUBCUT QIDACANDBED 05/07/18 21:00 Famotidine [Pepcid] 20 mg PO BID 05/07/18 Dinner Nothing per Oral Now Diet [DIET] 05/08/18 08:00 Brain wo Cont [MR] Routine 05/08/18 09:00 Furosemide [Lasix] 40 mg IVPUSH DAILY Lisinopril [Prinivil] 5 mg PO DAILY Remove Patch 0 ea TRDERM DAILY 05/09/18 05:11 BASIC METABOLIC PANEL,BMP [CHEM] AM CBC WITH AUTO DIFF [HEME] AM MAGNESIUM [CHEM] AM 05/10/18 05:11 BASIC METABOLIC PANEL,BMP [CHEM] AM CBC WITH AUTO DIFF [HEME] AM MAGNESIUM [CHEM] AM 05/11/18 05:11 BASIC METABOLIC PANEL,BMP [CHEM] AM CBC WITH AUTO DIFF [HEME] AM MAGNESIUM [CHEM] AM - Plan Plan:: I/P: Acute: CVA -Reports right arm and leg discomfort for past week -Difficulty with speech and facial droop yesterday -Drove himself to ED -Risk factors: Hx/o HLD, HTN, "pre-diabetic", Daily ETOH use, Daily 1.5 pack smoker -Stopped taking statin and BP meds some time ago -CT negative for acute findings -Outside window for tPA -Carotid ultrasound 05/07/18 -Moderate plaque in right carotid bulb, more plaque within left carotid bulb and proximal ICA -Plaque on right appears calcified and shows irregular surface margin -Plaque on left is herterogeneous with smooth surface margins -Velocity within right ICA corresponds to stenosis within range of 1-49% -Velocity within left ICA corresponds to stenosis within range of 50-79% -Echo - obtained and results pending -T4/TSH WNL -MRI this afternoon -Lipid panel: Triglycerides 154, Total cholesterol 251, LDL 191, HDL 38.0--> re-start statin -ASA - home dose -NPO for now until TALENT ACQUISITION RELATIONSHIP MANAGER can preform swallow evaluation this afternoon -Aspiration/seizure precautions -Negative UA and UDS Elevated BNP -Suspect heart failure, although no documented history -3+ edema bilaterally up to knees -No pulmonary congestion noted on CXR -Echo obtained and pending -40mg Lasix given in ED -> Continue -ACEI - start at 5mg New onset DM -A1C 6.3 on 09/29/16, Now 10.9 -Sliding scale insulin -Diabetic ed consult -Telesales Supervisor consult -QID AC and Bedtime glucose checks -> will up to Q6hr while NPO -Microalbumin 77.3 Malignant HTN, improved -Hx/o HTN and stopped taking meds over one year ago - was on 20mg lisinopril per old notes -BP 217/117 in ED -Norvasc, ACEI, Lasix given in ed -Caution with CVA to lower BP too fast -5mg lisinopril daily -40mg IVP lasix daily -PRN hydralazine Chronic alcohol abuse -Reports 4 whiskey tavares daily (2-3 oz of ETOH per drink) -Folic acid/MV/Thiamine -CIWA protocol - has been 0-1 so far -Ativan for seizures -SA consult -Dr. Lafleur consult Tobacco use disorder -Reports 1.5 packs per day smoking -Cessation counseling -Nicotine patch Medical non-compliance -Was on statin previously but stopped as he didn't like how it mad him feel -Was on BP medications but stopped -PCP left town and didn't establish with a new provider -Discussed importance of medications and continued follow-up -Will need to establish with new PCP Resolved: Hyponatremia, mild -Sodium 134-->139 -IV fluids as ordered Hypomagnesemia -Magnesium 1.6-->1.9 -2 gram supplemented -Pharmacy to monitor and supplement Chronic: HLD HTN Recurrent bronchitis COPD BPH Atherosclerotic disease Plan: Admit to ICU CM/SW for discharge planning PT/OT Other orders as indicated above Home meds as ordered Routine AM labs DVT/PE prophylaxis: VIC connor TALENT ACQUISITION RELATIONSHIP MANAGER evaluation Code status: Full Code; PCP: Dany
[2018-05-08] MEDS: Famotidine 20 MG Tab PO SCH ×2 (08:08→20:29)
[2018-05-08] MEDS: Multivitamins,Therapeutic Tab PO SCH (08:08)
[2018-05-08] MEDS: Thiamine 100 MG Tab PO SCH (08:09)
[2018-05-08] MEDS: Folic Acid 1 MG Tab PO SCH (08:10)
[2018-05-08] MEDS: Nicotine 21 MG/24 Hr Patch TRDERM SCH (08:10)
[2018-05-08] MEDS ORDERED: Furosemide 40 MG/4 ML VIAL IVPUSH SCH (09:00)
[2018-05-08] MEDS ORDERED: Lisinopril 5 MG Tab PO SCH (09:00)
[2018-05-08] MEDS ORDERED: Enoxaparin 40 MG/0.4 ML Syringe SUBCUT SCH (12:00)
--- NOTE | 2018-05-08 13:07 | MR ---
MRI brain Technique: T1 sagittal; T2, T2 FLAIR and diffusion axial; T1 FLAIR coronal; T2 gradient echo images also obtained through the brain. Comparison: Prior head CT study of 05/07/18. Findings: Ventricles along with basal cisterns and sulci over the convexities are mildly prominent. Normal signal void is seen within the major cerebral arteries within the skull base. Small acute diffusion abnormality is seen showing increased signal on the FLAIR sequence within the left basal ganglia extending into the left szymanski radiata which is compatible with fairly recent infarct which is not reversible. Minimal areas of increased signal are scattered within the periventricular white matter which are compatible with small vessel ischemic demyelination change. No other abnormal areas of signal are seen within the brain parenchyma. No midline shift or mass effect is seen. Impression: 1. Acute diffusion abnormality within the left basal ganglia extending into the left szymanski radiata compatible with fairly recent irreversible infarct. 2. Mild senescent change as noted above. Diagnostic code #3
[2018-05-08] MEDS: Aspirin 81 MG Tab.Chew PO SCH (13:54)
[2018-05-08] MEDS: amLODIPine 10 MG Tab PO SCH (20:29)
[2018-05-08] MEDS ORDERED: Simvastatin 40 MG Tab PO SCH (21:00)
[2018-05-08] MEDS ORDERED: Simvastatin 20 MG Tab PO SCH (21:00)
[2018-05-09] MEDS: Insulin Aspart 100 Units/ML 3 ML Pen SUBCUT SCH ×4 (06:16→21:56)
--- NOTE | 2018-05-09 07:45 | PCM.PN ---
- General Info Date of Service: 05/09/18 Admission Dx/Problem (Free Text): Admission Diagnosis/Problem Admission Diagnosis/Problem CVA, Cerebrovascular accident Subjective Update: In to see Tl. His family is at bedside. We discussed the results of his MRI as well as his echo and plan of care from here. Answered all questions the patient and family had. He has been working with therapies and they are recommending home with home health. Family reports he has a family member who is going to come stay with him. CM has set him up to see Dr. Rodriguez as he did not have a PCP. He is otherwise doing quite well. BP medications were adjusted and lasix will be switched to PO. He has been downgraded to Med-surg status. Functional Status: Reports: Pain Controlled, Tolerating Diet, Ambulating, Urinating. Denies: New Symptoms - Review of Systems General: Reports: Weakness (improving ). Denies: Fever, Fatigue, Malaise HEENT: Reports: No Symptoms. Denies: Ear Pain, Eye Pain, Post Nasal Drip, Sinus Congestion, Sore Throat Pulmonary: Reports: No Symptoms. Denies: Shortness of Breath, Cough, Sputum, Wheezing Cardiovascular: Reports: No Symptoms. Denies: Chest Pain, Palpitations, Dyspnea on Exertion, Lightheadedness Gastrointestinal: Reports: No Symptoms. Denies: Abdominal Pain, Constipation, Decreased Appetite, Diarrhea, Nausea, Vomiting Genitourinary: Reports: No Symptoms. Denies: Burning Musculoskeletal: Reports: No Symptoms, Arm Pain (right forearm pain slightly worse today ) Skin: Reports: No Symptoms Neurological: Reports: Numbness, Tingling, Difficulty Walking, Change in Speech , Gait Disturbance. Denies: Confusion, Dizziness, Headache, Seizure, Syncope, Tremors, Trouble Speaking, Weakness Psychiatric: Reports: No Symptoms - Patient Data Vitals - Most Recent: Last Vital Signs Temp 99.2 F 05/09/18 07:36 Pulse 66 05/09/18 07:36 Resp 17 05/09/18 03:59 BP 138/74 05/09/18 07:36 Pulse Ox 96 05/09/18 07:36 Weight - Most Recent: 168 lb I&O - Last 24 Hours: Intake & Output 05/08/18 05/09/18 05/09/18 22:59 06:59 14:59 Intake Total 1420 300 Output Total 400 Balance 1420 -100 Lab Results Last 24 Hours: Laboratory Results - last 24 hr 05/08/18 05/08/18 05/08/18 Range/Units 06:10 11:16 16:46 WBC (4.23-9.07) K/mm3 RBC (4.63-6.08) M/mm3 Hgb (13.7-17.5) gm/L Hct (40.1-51.0) % MCV (79.0-92.2) fl MCH (25.7-32.2) pg MCHC (32.2-35.5) g/dl RDW Std Deviation (35.1-43.9) fL Plt Count (163-337) K/mm3 MPV (9.4-12.3) fl Neut % (Auto) (34.0-67.9) % Lymph % (Auto) (21.8-53.1) % [place] % (Auto) (5.3-12.2) % Eos % (Auto) (0.8-7.0) Baso % (Auto) (0.1-1.2) % Neut # (Auto) (1.78-5.38) K/mm3 Lymph # (Auto) (1.32-3.57) K/mm3 [place] # (Auto) (0.30-0.82) K/mm3 Eos # (Auto) (0.04-0.54) K/mm3 Baso # (Auto) (0.01-0.08) K/mm3 POC Glucose 234 H 259 H 271 H (80-115) mg/dL 05/08/18 05/09/18 05/09/18 Range/Units 21:10 05:55 05:56 WBC 7.13 (4.23-9.07) K/mm3 RBC 4.45 L (4.63-6.08) M/mm3 Hgb 13.8 (13.7-17.5) gm/L Hct 40.2 (40.1-51.0) % MCV 90.3 (79.0-92.2) fl MCH 31.0 (25.7-32.2) pg MCHC 34.3 (32.2-35.5) g/dl RDW Std Deviation 43.6 (35.1-43.9) fL Plt Count 187 (163-337) K/mm3 MPV 10.9 (9.4-12.3) fl Neut % (Auto) 60.1 (34.0-67.9) % Lymph % (Auto) 23.8 (21.8-53.1) % [place] % (Auto) 12.8 H (5.3-12.2) % Eos % (Auto) 2.4 (0.8-7.0) Baso % (Auto) 0.6 (0.1-1.2) % Neut # (Auto) 4.29 (1.78-5.38) K/mm3 Lymph # (Auto) 1.70 (1.32-3.57) K/mm3 [place] # (Auto) 0.91 H (0.30-0.82) K/mm3 Eos # (Auto) 0.17 (0.04-0.54) K/mm3 Baso # (Auto) 0.04 (0.01-0.08) K/mm3 POC Glucose 142 H 189 H (80-115) mg/dL Med Orders - Current: Current Medications Acetaminophen (Tylenol) 650 mg PO Q4H PRN PRN Reason: Pain (Mild 1-3)/fever Hydrocodone Bitart/Acetaminophen ([place] 325-5 Mg) 1 tab PO Q4H PRN PRN Reason: Pain (moderate 4-6) Albuterol/Ipratropium (Duoneb 3.0-0.5 Mg/3 Ml) 3 ml NEB Q4H PRN PRN Reason: Shortness Of Breath/wheezing Amlodipine Besylate (Norvasc) 10 mg PO BEDTIME [facility] Last Admin: 05/08/18 20:29 Dose: 10 mg Aspirin (Aspirin) 162 mg PO DAILY [facility] Last Admin: 05/08/18 13:54 Dose: 162 mg Bisacodyl (Dulcolax) 5 mg PO DAILY PRN PRN Reason: Constipation Docusate Sodium (Colace) 100 mg PO BID PRN PRN Reason: Constipation Enoxaparin Sodium (Lovenox) 40 mg SUBCUT DAILY [facility] Famotidine (Pepcid) 20 mg PO BID [facility] Last Admin: 05/08/18 20:29 Dose: 20 mg Folic Acid (Folic Acid) 1 mg PO DAILY [facility] Last Admin: 05/08/18 08:10 Dose: 1 mg Furosemide (Lasix) 40 mg IVPUSH DAILY [facility] Last Admin: 05/08/18 08:11 Dose: 40 mg Hydralazine HCl (Apresoline) 10 mg IVPUSH Q6H PRN PRN Reason: Hypertension Last Admin: 05/08/18 06:23 Dose: 10 mg Insulin Aspart (Novolog) 0 unit SUBCUT QIDACANDBED [facility]; Protocol Last Admin: 05/09/18 06:16 Dose: 2 unit Lisinopril (Prinivil) 10 mg PO DAILY [facility] Lorazepam (Ativan) 0 mg IVPUSH Q1H PRN; Protocol PRN Reason: withdrawl Lorazepam (Ativan) 2 mg IVPUSH Q4H PRN PRN Reason: Seizures Magnesium Sulfate (Pharmacy To Dose - Magnesium Replacement) 1 dose .XX ASDIRECTED [facility] Metoprolol Tartrate (Lopressor) 5 mg IVPUSH Q4H PRN PRN Reason: Tachycardia Miscellaneous Information (Remove Patch) 0 ea TRDERM DAILY [facility] Last Admin: 05/08/18 08:09 Dose: 1 ea Multivitamins (Thera) 1 each PO DAILY [facility] Last Admin: 05/08/18 08:08 Dose: 1 each Nicotine (Habitrol) 21 mg TRDERM DAILY [facility] Last Admin: 05/08/18 08:10 Dose: 21 mg Ondansetron HCl (Zofran) 4 mg IV Q6H PRN PRN Reason: Nausea/Vomiting Ondansetron HCl (Zofran Odt) 4 mg PO Q6H PRN PRN Reason: nausea, able to take PO Polyethylene Glycol (Miralax) 17 gm PO DAILY PRN PRN Reason: Constipation Potassium Chloride (Pharmacy To Dose - Potassium Replacement) 1 dose .XX ASDIRECTED [facility] Senna/Docusate Sodium (Senna Plus) 1 tab PO BID PRN PRN Reason: Constipation Simvastatin (Zocor) 40 mg PO BEDTIME [facility] Last Admin: 05/08/18 20:29 Dose: 40 mg Thiamine HCl (Vitamin B-1) 100 mg PO DAILY [facility] Last Admin: 05/08/18 08:09 Dose: 100 mg Discontinued Medications Amlodipine Besylate (Norvasc) 10 mg PO BEDTIME [facility] Amlodipine Besylate (Norvasc) 10 mg PO ONETIME ONE Stop: 05/07/18 11:41 Last Admin: 05/07/18 11:43 Dose: 10 mg Aspirin (Aspirin) 162 mg PO ONETIME ONE Stop: 05/07/18 11:29 Last Admin: 05/07/18 11:35 Dose: 162 mg Dextrose/Water (Dextrose 50% In Water) 50 ml IVPUSH ASDIRECTED PRN PRN Reason: Hypoglycemia Enalaprilat (Vasotec Iv) 1.25 mg IVPUSH ONETIME ONE Stop: 05/07/18 11:35 Last Admin: 05/07/18 11:40 Dose: 1.25 mg Enoxaparin Sodium (Lovenox) 40 mg SUBCUT DAILY [facility] Last Admin: 05/08/18 12:56 Dose: 40 mg Furosemide (Lasix) 40 mg IVPUSH NOW ONE Stop: 05/07/18 11:33 Last Admin: 05/07/18 11:38 Dose: 40 mg Sodium Chloride (Normal Saline) 1,000 mls @ 100 mls/hr IV ASDIRECTED [facility] Last Admin: 05/07/18 10:43 Dose: 100 mls/hr Lactated Ringer's (Ringers, Lactated) 1,000 mls @ 75 mls/hr IV ASDIRECTED [facility] Stop: 05/09/18 02:04 Magnesium Sulfate 2 gm/ Premix 50 mls @ 25 mls/hr IV ONETIME ONE Stop: 05/07/18 14:48 Last Admin: 05/07/18 13:42 Dose: 25 mls/hr Dextrose/Sodium Chloride (Dextrose 5%-Normal Saline) 1,000 mls @ 50 mls/hr IV ASDIRECTED [facility] Last Admin: 05/07/18 18:31 Dose: 50 mls/hr Labetalol HCl (Normodyne) 20 mg IVPUSH ONETIME ONE; Protocol Stop: 05/07/18 11:01 Last Admin: 05/07/18 11:12 Dose: 20 mg Lisinopril (Prinivil) 5 mg PO DAILY [facility] Last Admin: 05/08/18 08:10 Dose: 5 mg Simvastatin (Zocor) 20 mg PO BEDTIME [facility] - Exam Quality Assessment: DVT Prophylaxis General: Alert, Oriented, Cooperative, No Acute Distress HEENT: Pupils Equal, Pupils Reactive, EOMI, Mucous Membr. Moist/[place] Neck: Supple, Trachea Midline, No JVD, No Thyromegaly Lungs: Clear to Auscultation, Normal Respiratory Effort Cardiovascular: Regular Rate, Regular Rhythm GI/Abdominal Exam: Normal Bowel Sounds, Soft, Non-Tender, No Distention, No Abnormal Bruit (Male) Exam: Deferred Back Exam: Normal Inspection, Full Range of Motion Extremities: Normal Inspection, Normal Range of Motion, Non-Tender, Normal Capillary Refill, Pedal Edema (1-2+ bilateral). No: Increased Warmth, Redness Peripheral Pulses: 1+: Posterior Tibial (L), Posterior Tibial (R), Dorsalis Pedis (L), Dorsalis Pedis (R), 2+: Radial (L), Radial (R) Skin: Warm, Dry, Intact Neurological: No New Focal Deficit, Strength Equal Bilateral, Sensation Intact, Cranial Nerves Intact (grossly). No: Normal Gait, Normal Speech Psy/Mental Status: Alert, Normal Affect, Normal Mood - Problem List & Annotations (1) Cerebrovascular accident (CVA) determined by clinical assessment SNOMED Code(s): 065201304, 100711917 Code(s): I63.9 - CEREBRAL INFARCTION, UNSPECIFIED Status: Acute Priority : High Current Visit: Yes (2) Diabetes mellitus, new onset SNOMED Code(s): 966150540, 985451848 Code(s): E11.9 - TYPE 2 DIABETES MELLITUS WITHOUT COMPLICATIONS Status: Acute Priority: High Current Visit: Yes (3) HLD (hyperlipidemia) SNOMED Code(s): 43120314 Code(s): E78.5 - HYPERLIPIDEMIA, UNSPECIFIED Status: Chronic Priority: Medium Current Visit: Yes Qualifiers: Hyperlipidemia type: unspecified Qualified Code(s): E78.5 - Hyperlipidemia , unspecified (4) HTN (hypertension) SNOMED Code(s): 58971817 Code(s): I10 - ESSENTIAL (PRIMARY) HYPERTENSION Status: Chronic Priority : Medium Current Visit: Yes Qualifiers: Hypertension type: unspecified Qualified Code(s): I10 - Essential (primary ) hypertension (5) Malignant hypertension SNOMED Code(s): 29771082 Code(s): I10 - ESSENTIAL (PRIMARY) HYPERTENSION Status: Resolved Priority : High Current Visit: Yes (6) Acute hyperglycemia SNOMED Code(s): 129713658 Code(s): R73.9 - HYPERGLYCEMIA, UNSPECIFIED Status: Resolved Priority: High Current Visit: Yes (7) Alcohol abuse SNOMED Code(s): 30455917 Code(s): F10.10 - ALCOHOL ABUSE, UNCOMPLICATED Status: Chronic Priority: High Current Visit: Yes (8) Hypomagnesemia SNOMED Code(s): 197922467 Code(s): E83.42 - HYPOMAGNESEMIA Status: Resolved Priority: High Current Visit: Yes (9) Hyponatremia SNOMED Code(s): 10810444 Code(s): E87.1 - HYPO-OSMOLALITY AND HYPONATREMIA Status: Resolved Priority: Medium Current Visit: Yes (10) Medical non-compliance SNOMED Code(s): 157687359 Code(s): Z91.19 - PATIENT'S NONCOMPLIANCE W OTH MEDICAL TREATMENT AND REGIMEN Status: Acute Priority: High Current Visit: Yes (11) Elevated brain natriuretic peptide (BNP) level SNOMED Code(s): 482409481, 789279607 Code(s): R79.89 - OTHER SPECIFIED ABNORMAL FINDINGS OF BLOOD CHEMISTRY Status: Acute Current Visit: Yes (12) Systolic heart failure SNOMED Code(s): 988388248 Code(s): I50.20 - UNSPECIFIED SYSTOLIC (CONGESTIVE) HEART FAILURE Status: Acute Priority: High Current Visit: Yes Qualifiers: Heart failure chronicity: chronic Qualified Code(s): I50.22 - Chronic systolic (congestive) heart failure - Problem List Review Problem List Initiated/Reviewed/Updated: Yes - My Orders Last 24 Hours: My Active Orders 05/08/18 09:00 Furosemide [Lasix] 40 mg IVPUSH DAILY Remove Patch 0 ea TRDERM DAILY 05/08/18 13:30 Aspirin 162 mg PO DAILY 05/09/18 05:56 BASIC METABOLIC PANEL,BMP [CHEM] AM MAGNESIUM [CHEM] AM 05/10/18 05:11 BASIC METABOLIC PANEL,BMP [CHEM] AM CBC WITH AUTO DIFF [HEME] AM MAGNESIUM [CHEM] AM 05/11/18 05:11 BASIC METABOLIC PANEL,BMP [CHEM] AM CBC WITH AUTO DIFF [HEME] AM MAGNESIUM [CHEM] AM - Plan Plan:: I/P: Acute: CVA -Reports right arm and leg discomfort for past week -Difficulty with speech and facial droop yesterday -Drove himself to ED -Risk factors: Hx/o HLD, HTN, "pre-diabetic", Daily ETOH use, Daily 1.5 pack smoker -Stopped taking statin and BP meds some time ago -CT negative for acute findings -Outside window for tPA -Carotid ultrasound 05/07/18 -Moderate plaque in right carotid bulb, more plaque within left carotid bulb and proximal ICA -Plaque on right appears calcified and shows irregular surface margin -Plaque on left is herterogeneous with smooth surface margins -Velocity within right ICA corresponds to stenosis within range of 1-49% -Velocity within left ICA corresponds to stenosis within range of 50-79% -Echo on 05/07/18 1. LVEF, by visual estimation, is 45-50% 2. MIldly decreased left ventricular systolic function 3. Moderate concentric left ventricular hypertrophy 4. Thinning and severe hypokinesia of the mid and apical septum and hypokinesia of the basal inf wall suggestive of CAD 5. Moderately dilated left atrium -T4/TSH - WNL -MRI on 05/08/18 1. Acute diffusion abnormality within the left basal ganglia extending into the left szymanski radiata compatible with fairly recent irreversible infarct. 2. Mild senescent change as noted -Lipid panel: Triglycerides 154, Total cholesterol 251, LDL 191, HDL 38.0--> re-start statin -ASA - 162mg daily -NPO - > [employer] recommending mechanical soft diet and nectar thick liquids -Aspiration/seizure precautions -Negative UA and UDS Systolic heart failure -Suspect heart failure, although no documented history -3+ edema bilaterally up to knees-> improving -No pulmonary congestion noted on CXR -Echo as above -40mg Lasix given in ED -> Continue daily -> switch to 40mg PO dily -ACEI - start at 5mg-->increase to 10mg--> increase to 20mg -Sodium restricted diet New onset DM -A1C 6.3 on 09/29/16, Now 10.9 -Sliding scale insulin -Diabetic ed consult -Soap Chipper consult -QID AC and Bedtime glucose checks -> will up to Q6hr while NPO -Microalbumin 77.3 -Start meformin 500mg BID -Start glipizide 2.5mg BID Chronic alcohol abuse -Reports 4 whiskey tavares daily (2-3 oz of ETOH per drink) -Folic acid/MV/Thiamine -[facility]-DS[facility] protocol - has been 0-1 so far -Ativan for seizures - consult -Dr. Lafleur consult - recommending sobriety Tobacco use disorder -Reports 1.5 packs per day smoking -Cessation counseling -Nicotine patch Medical non-compliance -Was on statin previously but stopped as he didn't like how it mad him feel -Was on BP medications but stopped -PCP left town and didn't establish with a new provider -Discussed importance of medications and continued follow-up -Will need to establish with new PCP Resolved: Hyponatremia, mild -Sodium 134-->139 -IV fluids as ordered Hypomagnesemia -Magnesium 1.6-->1.9 -2 gram supplemented -Pharmacy to monitor and supplement Malignant HTN, improved -Hx/o HTN and stopped taking meds over one year ago - was on 20mg lisinopril per old notes -BP 217/117 in ED -Norvasc, ACEI, Lasix given in ED -Caution with CVA to lower BP too fast -5mg lisinopril daily--> increase to 10mg-> increase to 20mg -Norvasc 10mg -40mg IVP lasix daily -> switch to 40mg PO dialy -PRN hydralazine Chronic: HLD HTN Recurrent bronchitis COPD BPH Atherosclerotic disease Plan: Admit to ICU-> downgrade to M/S/P status with telemetry CM/SW for discharge planning PT/OT -> recommending home with home health Other orders as indicated above Home meds as ordered Routine AM labs DVT/PE prophylaxis: VIC connor [employer] evaluation - mechanical soft with nectar thick liquids Code status: Full Code; PCP: None - appointment made with Dr. Rodriguez by CM to establish
[2018-05-09] MEDS ORDERED: Lisinopril 10 MG Tab PO SCH (09:00)
[2018-05-09] MEDS: Furosemide 40 MG Tab PO SCH (09:26)
[2018-05-09] MEDS: Famotidine 20 MG Tab PO SCH ×2 (09:26→21:49)
[2018-05-09] MEDS: Nicotine 21 MG/24 Hr Patch TRDERM SCH (09:26)
[2018-05-09] MEDS: Enoxaparin 40 MG/0.4 ML Syringe SUBCUT SCH (09:26)
[2018-05-09] MEDS: Multivitamins,Therapeutic Tab PO SCH (09:27)
[2018-05-09] MEDS: glipiZIDE 2.5 MG Tab.ER PO SCH ×2 (09:27→21:49)
[2018-05-09] MEDS: Aspirin 81 MG Tab.Chew PO SCH (09:27)
[2018-05-09] MEDS: Lisinopril 20 MG Tab PO SCH (09:27)
[2018-05-09] MEDS: Folic Acid 1 MG Tab PO SCH (09:27)
[2018-05-09] MEDS: Thiamine 100 MG Tab PO SCH (09:33)
[2018-05-09] MEDS: Rosuvastatin 10 MG Tab PO SCH (11:43)
[2018-05-09] MEDS: Potassium Chloride 20 MEQ Tab.ER PO SCH ×2 (11:44→16:00)
[2018-05-09] MEDS: metFORMIN 500 MG Tab PO SCH (16:00)
[2018-05-09] MEDS: amLODIPine 10 MG Tab PO SCH (21:49)
[2018-05-10] MEDS: metFORMIN 500 MG Tab PO SCH ×2 (06:51→17:45)
[2018-05-10] MEDS: Insulin Aspart 100 Units/ML 3 ML Pen SUBCUT SCH ×4 (09:12→22:17)
[2018-05-10] MEDS: Rosuvastatin 10 MG Tab PO SCH (10:12)
[2018-05-10] MEDS: Lisinopril 20 MG Tab PO SCH (10:12)
[2018-05-10] MEDS: Aspirin 81 MG Tab.Chew PO SCH (10:12)
[2018-05-10] MEDS: Famotidine 20 MG Tab PO SCH ×2 (10:12→22:15)
[2018-05-10] MEDS: Enoxaparin 40 MG/0.4 ML Syringe SUBCUT SCH (10:13)
[2018-05-10] MEDS: glipiZIDE 2.5 MG Tab.ER PO SCH ×2 (10:13→22:15)
[2018-05-10] MEDS: Folic Acid 1 MG Tab PO SCH (10:13)
[2018-05-10] MEDS: Multivitamins,Therapeutic Tab PO SCH (10:13)
[2018-05-10] MEDS: Furosemide 40 MG Tab PO SCH (10:13)
[2018-05-10] MEDS: Nicotine 21 MG/24 Hr Patch TRDERM SCH (10:13)
[2018-05-10] MEDS: Thiamine 100 MG Tab PO SCH (10:13)
--- NOTE | 2018-05-10 11:56 | PCM.PN ---
- General Info Date of Service: 05/10/18 Subjective Update: Patient is hopeful that he will be able to have a different diet. Explained that it will be reassessed 05/12/18. Functional Status: Reports: Tolerating Diet, Urinating - Review of Systems General: Reports: No Symptoms HEENT: Reports: No Symptoms Pulmonary: Reports: No Symptoms Cardiovascular: Reports: No Symptoms Gastrointestinal: Reports: No Symptoms Genitourinary: Reports: No Symptoms Musculoskeletal: Reports: No Symptoms Skin: Reports: No Symptoms Neurological: Reports: No Symptoms Psychiatric: Reports: No Symptoms - Patient Data Vitals - Most Recent: Last Vital Signs Temp 36.9 C 05/10/18 09:11 Pulse 63 05/10/18 09:11 Resp 16 05/10/18 09:11 BP 144/86 H 05/10/18 10:12 Pulse Ox 97 05/10/18 09:11 Weight - Most Recent: 73.527 kg I&O - Last 24 Hours: Intake & Output 05/09/18 05/10/18 05/10/18 22:59 06:59 14:59 Intake Total 480 360 180 Balance 480 360 180 Lab Results Last 24 Hours: Laboratory Results - last 24 hr 05/09/18 05/09/18 05/10/18 Range/Units 16:42 21:55 05:55 WBC 5.11 (4.23-9.07) K/mm3 RBC 4.77 (4.63-6.08) M/mm3 Hgb 14.6 (13.7-17.5) gm/L Hct 43.5 (40.1-51.0) % MCV 91.2 (79.0-92.2) fl MCH 30.6 (25.7-32.2) pg MCHC 33.6 (32.2-35.5) g/dl RDW Std Deviation 44.7 H (35.1-43.9) fL Plt Count 178 (163-337) K/mm3 MPV 11.8 (9.4-12.3) fl Neut % (Auto) 54.3 (34.0-67.9) % Lymph % (Auto) 30.7 (21.8-53.1) % [place] % (Auto) 11.7 (5.3-12.2) % Eos % (Auto) 2.7 (0.8-7.0) Baso % (Auto) 0.4 (0.1-1.2) % Neut # (Auto) 2.77 (1.78-5.38) K/mm3 Lymph # (Auto) 1.57 (1.32-3.57) K/mm3 [place] # (Auto) 0.60 (0.30-0.82) K/mm3 Eos # (Auto) 0.14 (0.04-0.54) K/mm3 Baso # (Auto) 0.02 (0.01-0.08) K/mm3 Sodium (136-145) mEq/L Potassium (3.5-5.1) mEq/L Chloride (98-107) mEq/L Carbon Dioxide (21-32) mEq/L Anion Gap (5-15) BUN (7-18) mg/dL Creatinine (0.7-1.3) mg/dL Est Cr Clr Drug Dosing mL/min Estimated GFR (MDRD) (>60) mL/min BUN/Creatinine Ratio (14-18) Glucose (80-115) mg/dL POC Glucose 268 H 182 H (80-115) mg/dL Calcium (8.5-10.1) mg/dL Magnesium (1.8-2.4) mg/dl 05/10/18 05/10/18 05/10/18 Range/Units 05:55 06:48 11:25 WBC (4.23-9.07) K/mm3 RBC (4.63-6.08) M/mm3 Hgb (13.7-17.5) gm/L Hct (40.1-51.0) % MCV (79.0-92.2) fl MCH (25.7-32.2) pg MCHC (32.2-35.5) g/dl RDW Std Deviation (35.1-43.9) fL Plt Count (163-337) K/mm3 MPV (9.4-12.3) fl Neut % (Auto) (34.0-67.9) % Lymph % (Auto) (21.8-53.1) % [place] % (Auto) (5.3-12.2) % Eos % (Auto) (0.8-7.0) Baso % (Auto) (0.1-1.2) % Neut # (Auto) (1.78-5.38) K/mm3 Lymph # (Auto) (1.32-3.57) K/mm3 [place] # (Auto) (0.30-0.82) K/mm3 Eos # (Auto) (0.04-0.54) K/mm3 Baso # (Auto) (0.01-0.08) K/mm3 Sodium 139 (136-145) mEq/L Potassium 4.0 (3.5-5.1) mEq/L Chloride 105 (98-107) mEq/L Carbon Dioxide 24 (21-32) mEq/L Anion Gap 14.0 (5-15) BUN 18 (7-18) mg/dL Creatinine 1.0 (0.7-1.3) mg/dL Est Cr Clr Drug Dosing 66.10 mL/min Estimated GFR (MDRD) > 60 (>60) mL/min BUN/Creatinine Ratio 18.0 (14-18) Glucose 154 H (80-115) mg/dL POC Glucose 165 H 186 H (80-115) mg/dL Calcium 9.0 (8.5-10.1) mg/dL Magnesium 1.7 L (1.8-2.4) mg/dl Med Orders - Current: Current Medications Acetaminophen (Tylenol) 650 mg PO Q4H PRN PRN Reason: Pain (Mild 1-3)/fever Hydrocodone Bitart/Acetaminophen ([place] 325-5 Mg) 1 tab PO Q4H PRN PRN Reason: Pain (moderate 4-6) Albuterol/Ipratropium (Duoneb 3.0-0.5 Mg/3 Ml) 3 ml NEB Q4H PRN PRN Reason: Shortness Of Breath/wheezing Amlodipine Besylate (Norvasc) 10 mg PO BEDTIME [facility] Last Admin: 05/09/18 21:49 Dose: 10 mg Aspirin (Aspirin) 162 mg PO DAILY [facility] Last Admin: 05/10/18 10:12 Dose: 162 mg Bisacodyl (Dulcolax) 5 mg PO DAILY PRN PRN Reason: Constipation Docusate Sodium (Colace) 100 mg PO BID PRN PRN Reason: Constipation Enoxaparin Sodium (Lovenox) 40 mg SUBCUT DAILY [facility] Last Admin: 05/10/18 10:13 Dose: 40 mg Famotidine (Pepcid) 20 mg PO BID [facility] Last Admin: 05/10/18 10:12 Dose: 20 mg Folic Acid (Folic Acid) 1 mg PO DAILY [facility] Last Admin: 05/10/18 10:13 Dose: 1 mg Furosemide (Lasix) 40 mg PO DAILY [facility] Last Admin: 05/10/18 10:13 Dose: 40 mg Glipizide (Glucotrol Xl) 2.5 mg PO BID [facility] Last Admin: 05/10/18 10:13 Dose: 2.5 mg Hydralazine HCl (Apresoline) 10 mg IVPUSH Q6H PRN PRN Reason: Hypertension Last Admin: 05/08/18 06:23 Dose: 10 mg Insulin Aspart (Novolog) 0 unit SUBCUT QIDACANDBED [facility]; Protocol Last Admin: 05/10/18 09:12 Dose: 1 units Lisinopril (Prinivil) 20 mg PO DAILY [facility] Last Admin: 05/10/18 10:12 Dose: 20 mg Lorazepam (Ativan) 0 mg IVPUSH Q1H PRN; Protocol PRN Reason: withdrawl Lorazepam (Ativan) 2 mg IVPUSH Q4H PRN PRN Reason: Seizures Metformin HCl (Glucophage) 500 mg PO BIDMEALS [facility] Last Admin: 05/10/18 06:51 Dose: 500 mg Metoprolol Tartrate (Lopressor) 5 mg IVPUSH Q4H PRN PRN Reason: Tachycardia Miscellaneous Information (Remove Patch) 0 ea TRDERM DAILY [facility] Last Admin: 05/10/18 11:07 Dose: 1 ea Multivitamins (Thera) 1 each PO DAILY [facility] Last Admin: 05/10/18 10:13 Dose: 1 each Nicotine (Habitrol) 21 mg TRDERM DAILY [facility] Last Admin: 05/10/18 10:13 Dose: 21 mg Ondansetron HCl (Zofran) 4 mg IV Q6H PRN PRN Reason: Nausea/Vomiting Ondansetron HCl (Zofran Odt) 4 mg PO Q6H PRN PRN Reason: nausea, able to take PO Polyethylene Glycol (Miralax) 17 gm PO DAILY PRN PRN Reason: Constipation Rosuvastatin Calcium (Crestor) 10 mg PO DAILY [facility] Last Admin: 05/10/18 10:12 Dose: 10 mg Senna/Docusate Sodium (Senna Plus) 1 tab PO BID PRN PRN Reason: Constipation Thiamine HCl (Vitamin B-1) 100 mg PO DAILY [facility] Last Admin: 05/10/18 10:13 Dose: 100 mg Discontinued Medications Amlodipine Besylate (Norvasc) 10 mg PO BEDTIME [facility] Amlodipine Besylate (Norvasc) 10 mg PO ONETIME ONE Stop: 05/07/18 11:41 Last Admin: 05/07/18 11:43 Dose: 10 mg Aspirin (Aspirin) 162 mg PO ONETIME ONE Stop: 05/07/18 11:29 Last Admin: 05/07/18 11:35 Dose: 162 mg Dextrose/Water (Dextrose 50% In Water) 50 ml IVPUSH ASDIRECTED PRN PRN Reason: Hypoglycemia Enalaprilat (Vasotec Iv) 1.25 mg IVPUSH ONETIME ONE Stop: 05/07/18 11:35 Last Admin: 05/07/18 11:40 Dose: 1.25 mg Enoxaparin Sodium (Lovenox) 40 mg SUBCUT DAILY [facility] Last Admin: 05/08/18 12:56 Dose: 40 mg Furosemide (Lasix) 40 mg IVPUSH NOW ONE Stop: 05/07/18 11:33 Last Admin: 05/07/18 11:38 Dose: 40 mg Furosemide (Lasix) 40 mg IVPUSH DAILY [facility] Last Admin: 05/08/18 08:11 Dose: 40 mg Sodium Chloride (Normal Saline) 1,000 mls @ 100 mls/hr IV ASDIRECTED [facility] Last Admin: 05/07/18 10:43 Dose: 100 mls/hr Lactated Ringer's (Ringers, Lactated) 1,000 mls @ 75 mls/hr IV ASDIRECTED [facility] Stop: 05/09/18 02:04 Magnesium Sulfate 2 gm/ Premix 50 mls @ 25 mls/hr IV ONETIME ONE Stop: 05/07/18 14:48 Last Admin: 05/07/18 13:42 Dose: 25 mls/hr Dextrose/Sodium Chloride (Dextrose 5%-Normal Saline) 1,000 mls @ 50 mls/hr IV ASDIRECTED [facility] Last Admin: 05/07/18 18:31 Dose: 50 mls/hr Insulin Aspart (Novolog) 0 unit SUBCUT QIDACANDBED [facility]; Protocol Last Admin: 05/09/18 06:16 Dose: 2 unit Labetalol HCl (Normodyne) 20 mg IVPUSH ONETIME ONE; Protocol Stop: 05/07/18 11:01 Last Admin: 05/07/18 11:12 Dose: 20 mg Lisinopril (Prinivil) 5 mg PO DAILY [facility] Last Admin: 05/08/18 08:10 Dose: 5 mg Lisinopril (Prinivil) 10 mg PO DAILY [facility] Magnesium Sulfate (Pharmacy To Dose - Magnesium Replacement) 1 dose .XX ASDIRECTED [facility] Potassium Chloride (Pharmacy To Dose - Potassium Replacement) 1 dose .XX ASDIRECTED [facility] Potassium Chloride (Klor-Con M20) 40 meq PO Q4H [facility] Stop: 05/09/18 15:01 Last Admin: 05/09/18 16:00 Dose: 40 meq Simvastatin (Zocor) 20 mg PO BEDTIME [facility] Simvastatin (Zocor) 40 mg PO BEDTIME [facility] Last Admin: 05/08/18 20:29 Dose: 40 mg - Exam Quality Assessment: DVT Prophylaxis General: Alert, Oriented, Cooperative, No Acute Distress HEENT: Pupils Equal, Pupils Reactive, EOMI Neck: Supple, Trachea Midline, No JVD Lungs: Normal Respiratory Effort Cardiovascular: Regular Rate, Regular Rhythm GI/Abdominal Exam: Normal Bowel Sounds, Soft, Non-Tender, No Organomegaly, No Distention (Male) Exam: Deferred Back Exam: Normal Inspection Extremities: Normal Inspection, Normal Range of Motion Skin: Warm Neurological: No New Focal Deficit, Normal Speech, Strength Equal Bilateral (L> R., handgrip) Psy/Mental Status: Alert, Normal Affect, Normal Mood - Problem List Review Problem List Initiated/Reviewed/Updated: Yes - Plan Plan:: I/P: Acute: CVA -Reports right arm and leg discomfort for past week -Difficulty with speech and facial droop yesterday -Drove himself to ED -Risk factors: Hx/o HLD, HTN, "pre-diabetic", Daily ETOH use, Daily 1.5 pack smoker -Stopped taking statin and BP meds some time ago -CT negative for acute findings -Outside window for tPA -Carotid ultrasound 05/07/18 -Moderate plaque in right carotid bulb, more plaque within left carotid bulb and proximal ICA -Plaque on right appears calcified and shows irregular surface margin -Plaque on left is herterogeneous with smooth surface margins -Velocity within right ICA corresponds to stenosis within range of 1-49% -Velocity within left ICA corresponds to stenosis within range of 50-79% -Echo on 05/07/18 1. LVEF, by visual estimation, is 45-50% 2. MIldly decreased left ventricular systolic function 3. Moderate concentric left ventricular hypertrophy 4. Thinning and severe hypokinesia of the mid and apical septum and hypokinesia of the basal inf wall suggestive of CAD 5. Moderately dilated left atrium -T4/TSH - WNL -MRI on 05/08/18 1. Acute diffusion abnormality within the left basal ganglia extending into the left szymanski radiata compatible with fairly recent irreversible infarct. 2. Mild senescent change as noted -Lipid panel: Triglycerides 154, Total cholesterol 251, LDL 191, HDL 38.0--> re-start statin -ASA - 162mg daily -NPO - > [employer] recommending mechanical soft diet and nectar thick liquids -Aspiration/seizure precautions -Negative UA and UDS Systolic heart failure -Suspect heart failure, although no documented history -3+ edema bilaterally up to knees-> improving -No pulmonary congestion noted on CXR -Echo as above -40mg Lasix given in ED -> Continue daily -> switch to 40mg PO dily -ACEI - start at 5mg-->increase to 10mg--> increase to 20mg -Sodium restricted diet New onset DM -A1C 6.3 on 09/29/16, Now 10.9 -Sliding scale insulin -Diabetic ed consult -Manager Desktop consult -QID AC and Bedtime glucose checks -> will up to Q6hr while NPO -Microalbumin 77.3 -Start meformin 500mg BID -Start glipizide 2.5mg BID Chronic alcohol abuse -Reports 4 whiskey tavares daily (2-3 oz of ETOH per drink) -Folic acid/MV/Thiamine -CIWA protocol - has been 0-1 so far -Ativan for seizures -SA consult -Dr. Lafleur consult - recommending sobriety Tobacco use disorder -Reports 1.5 packs per day smoking -Cessation counseling -Nicotine patch Medical non-compliance -Was on statin previously but stopped as he didn't like how it mad him feel -Was on BP medications but stopped -PCP left town and didn't establish with a new provider -Discussed importance of medications and continued follow-up -Will need to establish with new PCP Resolved: Hyponatremia, mild -Sodium 134-->139 -IV fluids as ordered Hypomagnesemia -Magnesium 1.6-->1.9 -2 gram supplemented -Pharmacy to monitor and supplement Malignant HTN, improved -Hx/o HTN and stopped taking meds over one year ago - was on 20mg lisinopril per old notes -BP 217/117 in ED -Norvasc, ACEI, Lasix given in ED -Caution with CVA to lower BP too fast -5mg lisinopril daily--> increase to 10mg-> increase to 20mg -Norvasc 10mg -40mg IVP lasix daily -> switch to 40mg PO dialy -PRN hydralazine Chronic: HLD HTN Recurrent bronchitis COPD BPH Atherosclerotic disease Plan: Admit to ICU-> downgrade to M/S/P status with telemetry CM/SW for discharge planning PT/OT -> recommending home with home health Other orders as indicated above Home meds as ordered Routine AM labs DVT/PE prophylaxis: VIC connor [employer] evaluation - mechanical soft with nectar thick liquids Code status: Full Code; PCP: None - appointment made with Dr. Rodriguez by CM to establish
[2018-05-10] MEDS ORDERED: Magnesium Sulfate/Water 2 GM in Premix Bag 1 BAG IV ONE (12:00)
[2018-05-10] MEDS: amLODIPine 10 MG Tab PO SCH (22:16)
[2018-05-11] MEDS: metFORMIN 500 MG Tab PO SCH ×2 (07:02→17:01)
[2018-05-11] MEDS: glipiZIDE 2.5 MG Tab.ER PO SCH ×2 (08:13→21:46)
[2018-05-11] MEDS: Multivitamins,Therapeutic Tab PO SCH (08:13)
[2018-05-11] MEDS: Furosemide 40 MG Tab PO SCH (08:13)
[2018-05-11] MEDS: Lisinopril 20 MG Tab PO SCH (08:13)
[2018-05-11] MEDS: Folic Acid 1 MG Tab PO SCH (08:13)
[2018-05-11] MEDS: Famotidine 20 MG Tab PO SCH ×2 (08:13→21:46)
[2018-05-11] MEDS: Thiamine 100 MG Tab PO SCH (08:13)
[2018-05-11] MEDS: Rosuvastatin 10 MG Tab PO SCH (08:13)
[2018-05-11] MEDS: Enoxaparin 40 MG/0.4 ML Syringe SUBCUT SCH (08:14)
[2018-05-11] MEDS: Nicotine 21 MG/24 Hr Patch TRDERM SCH (08:14)
[2018-05-11] MEDS: Aspirin 81 MG Tab.Chew PO SCH (08:14)
[2018-05-11] MEDS: Insulin Aspart 100 Units/ML 3 ML Pen SUBCUT SCH ×4 (08:20→21:52)
--- NOTE | 2018-05-11 12:43 | PCM.PN ---
- General Info Date of Service: 05/11/18 Functional Status: Reports: Tolerating Diet, Urinating - Review of Systems General: Reports: Weakness HEENT: Reports: No Symptoms Pulmonary: Reports: No Symptoms Cardiovascular: Reports: No Symptoms Gastrointestinal: Reports: No Symptoms Genitourinary: Reports: No Symptoms Musculoskeletal: Reports: No Symptoms Skin: Reports: No Symptoms Neurological: Reports: No Symptoms Psychiatric: Reports: No Symptoms - Patient Data Vitals - Most Recent: Last Vital Signs Temp 36.4 C 05/11/18 07:53 Pulse 60 05/11/18 07:53 Resp 20 05/11/18 07:53 BP 130/66 05/11/18 08:13 Pulse Ox 96 05/11/18 07:53 Weight - Most Recent: 73.527 kg I&O - Last 24 Hours: Intake & Output 05/10/18 05/11/18 05/11/18 22:59 06:59 14:59 Intake Total 290 480 Output Total 1 450 Balance 289 30 Lab Results Last 24 Hours: Laboratory Results - last 24 hr 05/10/18 05/10/18 05/11/18 Range/Units 17:39 22:14 05:58 WBC 6.05 (4.23-9.07) K/mm3 RBC 4.58 L (4.63-6.08) M/mm3 Hgb 14.0 (13.7-17.5) gm/L Hct 41.7 (40.1-51.0) % MCV 91.0 (79.0-92.2) fl MCH 30.6 (25.7-32.2) pg MCHC 33.6 (32.2-35.5) g/dl RDW Std Deviation 42.6 (35.1-43.9) fL Plt Count 181 (163-337) K/mm3 MPV 11.2 (9.4-12.3) fl Neut % (Auto) 60.8 (34.0-67.9) % Lymph % (Auto) 23.8 (21.8-53.1) % [place] % (Auto) 12.1 (5.3-12.2) % Eos % (Auto) 2.6 (0.8-7.0) Baso % (Auto) 0.5 (0.1-1.2) % Neut # (Auto) 3.68 (1.78-5.38) K/mm3 Lymph # (Auto) 1.44 (1.32-3.57) K/mm3 [place] # (Auto) 0.73 (0.30-0.82) K/mm3 Eos # (Auto) 0.16 (0.04-0.54) K/mm3 Baso # (Auto) 0.03 (0.01-0.08) K/mm3 Sodium (136-145) mEq/L Potassium (3.5-5.1) mEq/L Chloride (98-107) mEq/L Carbon Dioxide (21-32) mEq/L Anion Gap (5-15) BUN (7-18) mg/dL Creatinine (0.7-1.3) mg/dL Est Cr Clr Drug Dosing mL/min Estimated GFR (MDRD) (>60) mL/min BUN/Creatinine Ratio (14-18) Glucose (80-115) mg/dL POC Glucose 170 H 221 H (80-115) mg/dL Calcium (8.5-10.1) mg/dL Magnesium (1.8-2.4) mg/dl 05/11/18 05/11/18 05/11/18 Range/Units 05:58 06:45 11:34 WBC (4.23-9.07) K/mm3 RBC (4.63-6.08) M/mm3 Hgb (13.7-17.5) gm/L Hct (40.1-51.0) % MCV (79.0-92.2) fl MCH (25.7-32.2) pg MCHC (32.2-35.5) g/dl RDW Std Deviation (35.1-43.9) fL Plt Count (163-337) K/mm3 MPV (9.4-12.3) fl Neut % (Auto) (34.0-67.9) % Lymph % (Auto) (21.8-53.1) % [place] % (Auto) (5.3-12.2) % Eos % (Auto) (0.8-7.0) Baso % (Auto) (0.1-1.2) % Neut # (Auto) (1.78-5.38) K/mm3 Lymph # (Auto) (1.32-3.57) K/mm3 [place] # (Auto) (0.30-0.82) K/mm3 Eos # (Auto) (0.04-0.54) K/mm3 Baso # (Auto) (0.01-0.08) K/mm3 Sodium 139 (136-145) mEq/L Potassium 3.9 (3.5-5.1) mEq/L Chloride 105 (98-107) mEq/L Carbon Dioxide 25 (21-32) mEq/L Anion Gap 12.9 (5-15) BUN 18 (7-18) mg/dL Creatinine 1.1 (0.7-1.3) mg/dL Est Cr Clr Drug Dosing 60.09 mL/min Estimated GFR (MDRD) > 60 (>60) mL/min BUN/Creatinine Ratio 16.4 (14-18) Glucose 136 H (80-115) mg/dL POC Glucose 183 H 164 H (80-115) mg/dL Calcium 8.9 (8.5-10.1) mg/dL Magnesium 1.8 (1.8-2.4) mg/dl Med Orders - Current: Current Medications Acetaminophen (Tylenol) 650 mg PO Q4H PRN PRN Reason: Pain (Mild 1-3)/fever Last Admin: 05/11/18 08:14 Dose: 650 mg Hydrocodone Bitart/Acetaminophen (Doole 325-5 Mg) 1 tab PO Q4H PRN PRN Reason: Pain (moderate 4-6) Albuterol/Ipratropium (Duoneb 3.0-0.5 Mg/3 Ml) 3 ml NEB Q4H PRN PRN Reason: Shortness Of Breath/wheezing Amlodipine Besylate (Norvasc) 10 mg PO BEDTIME [facility] Last Admin: 05/10/18 22:16 Dose: 10 mg Aspirin (Aspirin) 162 mg PO DAILY [facility] Last Admin: 05/11/18 08:14 Dose: 162 mg Bisacodyl (Dulcolax) 5 mg PO DAILY PRN PRN Reason: Constipation Docusate Sodium (Colace) 100 mg PO BID PRN PRN Reason: Constipation Enoxaparin Sodium (Lovenox) 40 mg SUBCUT DAILY [facility] Last Admin: 05/11/18 08:14 Dose: 40 mg Famotidine (Pepcid) 20 mg PO BID [facility] Last Admin: 05/11/18 08:13 Dose: 20 mg Folic Acid (Folic Acid) 1 mg PO DAILY [facility] Last Admin: 05/11/18 08:13 Dose: 1 mg Furosemide (Lasix) 40 mg PO DAILY [facility] Last Admin: 05/11/18 08:13 Dose: 40 mg Glipizide (Glucotrol Xl) 2.5 mg PO BID [facility] Last Admin: 05/11/18 08:13 Dose: 2.5 mg Hydralazine HCl (Apresoline) 10 mg IVPUSH Q6H PRN PRN Reason: Hypertension Last Admin: 05/08/18 06:23 Dose: 10 mg Insulin Aspart (Novolog) 0 unit SUBCUT QIDACANDBED [facility]; Protocol Last Admin: 05/11/18 11:36 Dose: 1 units Lisinopril (Prinivil) 20 mg PO DAILY [facility] Last Admin: 05/11/18 08:13 Dose: 20 mg Lorazepam (Ativan) 0 mg IVPUSH Q1H PRN; Protocol PRN Reason: withdrawl Lorazepam (Ativan) 2 mg IVPUSH Q4H PRN PRN Reason: Seizures Metformin HCl (Glucophage) 500 mg PO BIDMEALS [facility] Last Admin: 05/11/18 07:02 Dose: 500 mg Metoprolol Tartrate (Lopressor) 5 mg IVPUSH Q4H PRN PRN Reason: Tachycardia Miscellaneous Information (Remove Patch) 0 ea TRDERM DAILY [facility] Last Admin: 05/11/18 08:19 Dose: 1 ea Multivitamins (Thera) 1 each PO DAILY [facility] Last Admin: 05/11/18 08:13 Dose: 1 each Nicotine (Habitrol) 21 mg TRDERM DAILY [facility] Last Admin: 05/11/18 08:14 Dose: 21 mg Ondansetron HCl (Zofran) 4 mg IV Q6H PRN PRN Reason: Nausea/Vomiting Ondansetron HCl (Zofran Odt) 4 mg PO Q6H PRN PRN Reason: nausea, able to take PO Polyethylene Glycol (Miralax) 17 gm PO DAILY PRN PRN Reason: Constipation Rosuvastatin Calcium (Crestor) 10 mg PO DAILY [facility] Last Admin: 05/11/18 08:13 Dose: 10 mg Senna/Docusate Sodium (Senna Plus) 1 tab PO BID PRN PRN Reason: Constipation Thiamine HCl (Vitamin B-1) 100 mg PO DAILY [facility] Last Admin: 05/11/18 08:13 Dose: 100 mg Discontinued Medications Amlodipine Besylate (Norvasc) 10 mg PO BEDTIME [facility] Amlodipine Besylate (Norvasc) 10 mg PO ONETIME ONE Stop: 05/07/18 11:41 Last Admin: 05/07/18 11:43 Dose: 10 mg Aspirin (Aspirin) 162 mg PO ONETIME ONE Stop: 05/07/18 11:29 Last Admin: 05/07/18 11:35 Dose: 162 mg Dextrose/Water (Dextrose 50% In Water) 50 ml IVPUSH ASDIRECTED PRN PRN Reason: Hypoglycemia Enalaprilat (Vasotec Iv) 1.25 mg IVPUSH ONETIME ONE Stop: 05/07/18 11:35 Last Admin: 05/07/18 11:40 Dose: 1.25 mg Enoxaparin Sodium (Lovenox) 40 mg SUBCUT DAILY [facility] Last Admin: 05/08/18 12:56 Dose: 40 mg Furosemide (Lasix) 40 mg IVPUSH NOW ONE Stop: 05/07/18 11:33 Last Admin: 05/07/18 11:38 Dose: 40 mg Furosemide (Lasix) 40 mg IVPUSH DAILY [facility] Last Admin: 05/08/18 08:11 Dose: 40 mg Sodium Chloride (Normal Saline) 1,000 mls @ 100 mls/hr IV ASDIRECTED [facility] Last Admin: 05/07/18 10:43 Dose: 100 mls/hr Lactated Ringer's (Ringers, Lactated) 1,000 mls @ 75 mls/hr IV ASDIRECTED [facility] Stop: 05/09/18 02:04 Magnesium Sulfate 2 gm/ Premix 50 mls @ 25 mls/hr IV ONETIME ONE Stop: 05/07/18 14:48 Last Admin: 05/07/18 13:42 Dose: 25 mls/hr Dextrose/Sodium Chloride (Dextrose 5%-Normal Saline) 1,000 mls @ 50 mls/hr IV ASDIRECTED [facility] Last Admin: 05/07/18 18:31 Dose: 50 mls/hr Magnesium Sulfate 2 gm/ Premix 50 mls @ 25 mls/hr IV ONETIME ONE Stop: 05/10/18 13:59 Last Admin: 05/10/18 12:15 Dose: 25 mls/hr Insulin Aspart (Novolog) 0 unit SUBCUT QIDACANDBED [facility]; Protocol Last Admin: 05/09/18 06:16 Dose: 2 unit Labetalol HCl (Normodyne) 20 mg IVPUSH ONETIME ONE; Protocol Stop: 05/07/18 11:01 Last Admin: 05/07/18 11:12 Dose: 20 mg Lisinopril (Prinivil) 5 mg PO DAILY [facility] Last Admin: 05/08/18 08:10 Dose: 5 mg Lisinopril (Prinivil) 10 mg PO DAILY [facility] Magnesium Sulfate (Pharmacy To Dose - Magnesium Replacement) 1 dose .XX ASDIRECTED [facility] Potassium Chloride (Pharmacy To Dose - Potassium Replacement) 1 dose .XX ASDIRECTED [facility] Potassium Chloride (Klor-Con M20) 40 meq PO Q4H [facility] Stop: 05/09/18 15:01 Last Admin: 05/09/18 16:00 Dose: 40 meq Simvastatin (Zocor) 20 mg PO BEDTIME [facility] Simvastatin (Zocor) 40 mg PO BEDTIME [facility] Last Admin: 05/08/18 20:29 Dose: 40 mg - Exam Quality Assessment: DVT Prophylaxis General: Alert, Oriented, Cooperative, No Acute Distress HEENT: Pupils Equal, Pupils Reactive, EOMI Neck: Trachea Midline Lungs: Normal Respiratory Effort Cardiovascular: Regular Rate, Regular Rhythm GI/Abdominal Exam: Normal Bowel Sounds, Soft, Non-Tender, No Organomegaly, No Distention (Male) Exam: Deferred Back Exam: Normal Inspection Extremities: Normal Inspection, Non-Tender Skin: Warm Neurological: No New Focal Deficit, Normal Speech Psy/Mental Status: Alert, Normal Affect, Normal Mood - Problem List Review Problem List Initiated/Reviewed/Updated: Yes - Plan Plan:: I/P: Acute: CVA -Reports right arm and leg discomfort for past week -Difficulty with speech and facial droop yesterday -Drove himself to ED -Risk factors: Hx/o HLD, HTN, "pre-diabetic", Daily ETOH use, Daily 1.5 pack smoker -Stopped taking statin and BP meds some time ago -CT negative for acute findings -Outside window for tPA -Carotid ultrasound 05/07/18 -Moderate plaque in right carotid bulb, more plaque within left carotid bulb and proximal ICA -Plaque on right appears calcified and shows irregular surface margin -Plaque on left is herterogeneous with smooth surface margins -Velocity within right ICA corresponds to stenosis within range of 1-49% -Velocity within left ICA corresponds to stenosis within range of 50-79% -Echo on 05/07/18 1. LVEF, by visual estimation, is 45-50% 2. MIldly decreased left ventricular systolic function 3. Moderate concentric left ventricular hypertrophy 4. Thinning and severe hypokinesia of the mid and apical septum and hypokinesia of the basal inf wall suggestive of CAD 5. Moderately dilated left atrium -T4/TSH - WNL -MRI on 05/08/18 1. Acute diffusion abnormality within the left basal ganglia extending into the left szymanski radiata compatible with fairly recent irreversible infarct. 2. Mild senescent change as noted -Lipid panel: Triglycerides 154, Total cholesterol 251, LDL 191, HDL 38.0--> re-start statin -ASA - 162mg daily -NPO - > PATROL CONDUCTOR recommending mechanical soft diet and nectar thick liquids -Aspiration/seizure precautions -Negative UA and UDS Systolic heart failure -Suspect heart failure, although no documented history -3+ edema bilaterally up to knees-> improving -No pulmonary congestion noted on CXR -Echo as above -40mg Lasix given in ED -> Continue daily -> switch to 40mg PO dily -ACEI - start at 5mg-->increase to 10mg--> increase to 20mg -Sodium restricted diet New onset DM -A1C 6.3 on 09/29/16, Now 10.9 -Sliding scale insulin -Diabetic ed consult -Commercial Account Manager consult -QID AC and Bedtime glucose checks -> will up to Q6hr while NPO -Microalbumin 77.3 -Start meformin 500mg BID -Start glipizide 2.5mg BID Chronic alcohol abuse -Reports 4 whiskey tavares daily (2-3 oz of ETOH per drink) -Folic acid/MV/Thiamine -CIAL protocol - has been 0-1 so far -Ativan for seizures - consult -Dr. Lafleur consult - recommending sobriety Tobacco use disorder -Reports 1.5 packs per day smoking -Cessation counseling -Nicotine patch Medical non-compliance -Was on statin previously but stopped as he didn't like how it mad him feel -Was on BP medications but stopped -PCP left town and didn't establish with a new provider -Discussed importance of medications and continued follow-up -Will need to establish with new PCP Resolved: Hyponatremia, mild -Sodium 134-->139 -IV fluids as ordered Hypomagnesemia -Magnesium 1.6-->1.9 -2 gram supplemented -Pharmacy to monitor and supplement Malignant HTN, improved -Hx/o HTN and stopped taking meds over one year ago - was on 20mg lisinopril per old notes -BP 217/117 in ED -Norvasc, ACEI, Lasix given in ED -Caution with CVA to lower BP too fast -5mg lisinopril daily--> increase to 10mg-> increase to 20mg -Norvasc 10mg -40mg IVP lasix daily -> switch to 40mg PO dialy -PRN hydralazine Chronic: HLD HTN Recurrent bronchitis COPD BPH Atherosclerotic disease Plan: Admit to ICU-> downgrade to M/S/P status with telemetry CM/SW for discharge planning PT/OT -> recommending home with home health Other orders as indicated above Home meds as ordered Routine AM labs DVT/PE prophylaxis: VIC connor PATROL CONDUCTOR evaluation - mechanical soft with nectar thick liquids Code status: Full Code; PCP: None - appointment made with Dr. Rodriguez by NEELAM to establish LOS>96 hours with CVA recovery
[2018-05-11] MEDS: amLODIPine 10 MG Tab PO SCH (21:46)
[2018-05-12] MEDS: metFORMIN 500 MG Tab PO SCH ×2 (06:35→17:12)
[2018-05-12] MEDS: Insulin Aspart 100 Units/ML 3 ML Pen SUBCUT SCH ×4 (06:36→21:40)
[2018-05-12] MEDS: glipiZIDE 2.5 MG Tab.ER PO SCH ×2 (09:25→21:40)
[2018-05-12] MEDS: Multivitamins,Therapeutic Tab PO SCH (09:25)
[2018-05-12] MEDS: Folic Acid 1 MG Tab PO SCH (09:25)
[2018-05-12] MEDS: Thiamine 100 MG Tab PO SCH (09:25)
[2018-05-12] MEDS: Nicotine 21 MG/24 Hr Patch TRDERM SCH (09:25)
[2018-05-12] MEDS: Lisinopril 20 MG Tab PO SCH (09:25)
[2018-05-12] MEDS: Famotidine 20 MG Tab PO SCH ×2 (09:25→21:39)
[2018-05-12] MEDS: Rosuvastatin 10 MG Tab PO SCH (09:26)
[2018-05-12] MEDS: Aspirin 81 MG Tab.Chew PO SCH (09:26)
[2018-05-12] MEDS: Enoxaparin 40 MG/0.4 ML Syringe SUBCUT SCH (09:26)
[2018-05-12] MEDS: Furosemide 40 MG Tab PO SCH (09:26)
--- NOTE | 2018-05-12 09:48 | PCM.PN ---
- General Info Date of Service: 05/12/18 Admission Dx/Problem (Free Text): Admission Diagnosis/Problem Admission Diagnosis/Problem CVA, Cerebrovascular accident Subjective Update: In to see Tl. He is sitting up in bed. He reports right arm pain but says it is slowly improving. SUPERVISOR UNLOADING was in to see him and recommended regular diet with nectar thick liquids. He is not very happy with this but understands why we must do this. They are also recommending outpatient SUPERVISOR UNLOADING after discharge. He was somewhat hypertensive last night however his BP improved this AM. He otherwise has no complaints. No nursing concerns. He has been working well with therapies. Recommending home with home health. Likely discharge tomorrow. He had a good bowel movement this AM. Functional Status: Reports: Pain Controlled, Tolerating Diet, Ambulating, Urinating. Denies: New Symptoms - Review of Systems General: Reports: Weakness (improving ). Denies: Fever, Fatigue, Malaise, Chills HEENT: Reports: No Symptoms. Denies: Contact Lenses, Eye Pain, Sinus Congestion , Sore Throat Pulmonary: Reports: No Symptoms. Denies: Shortness of Breath, Sputum, Wheezing Cardiovascular: Reports: No Symptoms. Denies: Chest Pain, Palpitations, Dyspnea on Exertion Gastrointestinal: Reports: No Symptoms. Denies: Abdominal Pain, Constipation, Diarrhea, Nausea, Vomiting Genitourinary: Reports: No Symptoms Musculoskeletal: Reports: Arm Pain. Denies: Neck Pain, Shoulder Pain, Hand Pain , Leg Pain, Foot Pain, Joint Pain, Joint Swelling Skin: Reports: No Symptoms Neurological: Reports: No Symptoms, Numbness, Tingling, Trouble Speaking, Difficulty Walking, Weakness, Change in Speech, Gait Disturbance. Denies: Confusion, Dizziness, Headache, Seizure, Syncope, Tremors Psychiatric: Reports: No Symptoms - Patient Data Vitals - Most Recent: Last Vital Signs Temp 98.2 F 05/12/18 09:24 Pulse 65 05/12/18 09:24 Resp 16 05/12/18 09:24 BP 135/67 05/12/18 09:25 Pulse Ox 92 L 05/12/18 09:24 Weight - Most Recent: 157 lb 8 oz I&O - Last 24 Hours: Intake & Output 05/11/18 05/12/18 05/12/18 22:59 06:59 14:59 Intake Total 840 236 Output Total 1600 Balance -760 236 Lab Results Last 24 Hours: Laboratory Results - last 24 hr 05/11/18 05/11/18 05/11/18 Range/Units 11:34 17:01 21:52 Sodium (136-145) mEq/L Potassium (3.5-5.1) mEq/L Chloride (98-107) mEq/L Carbon Dioxide (21-32) mEq/L Anion Gap (5-15) BUN (7-18) mg/dL Creatinine (0.7-1.3) mg/dL Est Cr Clr Drug Dosing mL/min Estimated GFR (MDRD) (>60) mL/min BUN/Creatinine Ratio (14-18) Glucose (80-115) mg/dL POC Glucose 164 H 171 H 141 H (80-115) mg/dL Calcium (8.5-10.1) mg/dL Magnesium (1.8-2.4) mg/dl 05/12/18 05/12/18 Range/Units 06:09 08:37 Sodium 139 (136-145) mEq/L Potassium 4.4 (3.5-5.1) mEq/L Chloride 104 (98-107) mEq/L Carbon Dioxide 26 (21-32) mEq/L Anion Gap 13.4 (5-15) BUN 18 (7-18) mg/dL Creatinine 1.2 (0.7-1.3) mg/dL Est Cr Clr Drug Dosing 55.08 mL/min Estimated GFR (MDRD) > 60 (>60) mL/min BUN/Creatinine Ratio 15.0 (14-18) Glucose 132 H (80-115) mg/dL POC Glucose 124 H (80-115) mg/dL Calcium 9.1 (8.5-10.1) mg/dL Magnesium 1.7 L (1.8-2.4) mg/dl Med Orders - Current: Current Medications Acetaminophen (Tylenol) 650 mg PO Q4H PRN PRN Reason: Pain (Mild 1-3)/fever Last Admin: 05/11/18 08:14 Dose: 650 mg Hydrocodone Bitart/Acetaminophen ([place] 325-5 Mg) 1 tab PO Q4H PRN PRN Reason: Pain (moderate 4-6) Albuterol/Ipratropium (Duoneb 3.0-0.5 Mg/3 Ml) 3 ml NEB Q4H PRN PRN Reason: Shortness Of Breath/wheezing Amlodipine Besylate (Norvasc) 10 mg PO BEDTIME [facility] Last Admin: 05/11/18 21:46 Dose: 10 mg Aspirin (Aspirin) 162 mg PO DAILY [facility] Last Admin: 05/12/18 09:26 Dose: 162 mg Bisacodyl (Dulcolax) 5 mg PO DAILY PRN PRN Reason: Constipation Docusate Sodium (Colace) 100 mg PO BID PRN PRN Reason: Constipation Enoxaparin Sodium (Lovenox) 40 mg SUBCUT DAILY [facility] Last Admin: 05/12/18 09:26 Dose: 40 mg Famotidine (Pepcid) 20 mg PO BID [facility] Last Admin: 05/12/18 09:25 Dose: 20 mg Folic Acid (Folic Acid) 1 mg PO DAILY [facility] Last Admin: 05/12/18 09:25 Dose: 1 mg Furosemide (Lasix) 40 mg PO DAILY [facility] Last Admin: 05/12/18 09:26 Dose: 40 mg Glipizide (Glucotrol Xl) 2.5 mg PO BID [facility] Last Admin: 05/12/18 09:25 Dose: 2.5 mg Hydralazine HCl (Apresoline) 10 mg IVPUSH Q6H PRN PRN Reason: Hypertension Last Admin: 05/08/18 06:23 Dose: 10 mg Insulin Aspart (Novolog) 0 unit SUBCUT QIDACANDBED [facility]; Protocol Last Admin: 05/12/18 06:36 Dose: Not Given Lisinopril (Prinivil) 20 mg PO DAILY [facility] Last Admin: 05/12/18 09:25 Dose: 20 mg Lorazepam (Ativan) 0 mg IVPUSH Q1H PRN; Protocol PRN Reason: withdrawl Lorazepam (Ativan) 2 mg IVPUSH Q4H PRN PRN Reason: Seizures Metformin HCl (Glucophage) 500 mg PO BIDMEALS [facility] Last Admin: 05/12/18 06:35 Dose: 500 mg Metoprolol Tartrate (Lopressor) 5 mg IVPUSH Q4H PRN PRN Reason: Tachycardia Miscellaneous Information (Remove Patch) 0 ea TRDERM DAILY [facility] Last Admin: 05/12/18 09:26 Dose: 1 ea Multivitamins (Thera) 1 each PO DAILY [facility] Last Admin: 05/12/18 09:25 Dose: 1 each Nicotine (Habitrol) 21 mg TRDERM DAILY [facility] Last Admin: 05/12/18 09:25 Dose: 21 mg Ondansetron HCl (Zofran) 4 mg IV Q6H PRN PRN Reason: Nausea/Vomiting Ondansetron HCl (Zofran Odt) 4 mg PO Q6H PRN PRN Reason: nausea, able to take PO Polyethylene Glycol (Miralax) 17 gm PO DAILY PRN PRN Reason: Constipation Rosuvastatin Calcium (Crestor) 10 mg PO DAILY [facility] Last Admin: 05/12/18 09:26 Dose: 10 mg Senna/Docusate Sodium (Senna Plus) 1 tab PO BID PRN PRN Reason: Constipation Last Admin: 05/12/18 09:32 Dose: 1 tab Thiamine HCl (Vitamin B-1) 100 mg PO DAILY [facility] Last Admin: 05/12/18 09:25 Dose: 100 mg Discontinued Medications Amlodipine Besylate (Norvasc) 10 mg PO BEDTIME [facility] Amlodipine Besylate (Norvasc) 10 mg PO ONETIME ONE Stop: 05/07/18 11:41 Last Admin: 05/07/18 11:43 Dose: 10 mg Aspirin (Aspirin) 162 mg PO ONETIME ONE Stop: 05/07/18 11:29 Last Admin: 05/07/18 11:35 Dose: 162 mg Dextrose/Water (Dextrose 50% In Water) 50 ml IVPUSH ASDIRECTED PRN PRN Reason: Hypoglycemia Enalaprilat (Vasotec Iv) 1.25 mg IVPUSH ONETIME ONE Stop: 05/07/18 11:35 Last Admin: 05/07/18 11:40 Dose: 1.25 mg Enoxaparin Sodium (Lovenox) 40 mg SUBCUT DAILY [facility] Last Admin: 05/08/18 12:56 Dose: 40 mg Furosemide (Lasix) 40 mg IVPUSH NOW ONE Stop: 05/07/18 11:33 Last Admin: 05/07/18 11:38 Dose: 40 mg Furosemide (Lasix) 40 mg IVPUSH DAILY [facility] Last Admin: 05/08/18 08:11 Dose: 40 mg Sodium Chloride (Normal Saline) 1,000 mls @ 100 mls/hr IV ASDIRECTED [facility] Last Admin: 05/07/18 10:43 Dose: 100 mls/hr Lactated Ringer's (Ringers, Lactated) 1,000 mls @ 75 mls/hr IV ASDIRECTED [facility] Stop: 05/09/18 02:04 Magnesium Sulfate 2 gm/ Premix 50 mls @ 25 mls/hr IV ONETIME ONE Stop: 05/07/18 14:48 Last Admin: 05/07/18 13:42 Dose: 25 mls/hr Dextrose/Sodium Chloride (Dextrose 5%-Normal Saline) 1,000 mls @ 50 mls/hr IV ASDIRECTED [facility] Last Admin: 05/07/18 18:31 Dose: 50 mls/hr Magnesium Sulfate 2 gm/ Premix 50 mls @ 25 mls/hr IV ONETIME ONE Stop: 05/10/18 13:59 Last Admin: 05/10/18 12:15 Dose: 25 mls/hr Insulin Aspart (Novolog) 0 unit SUBCUT QIDACANDBED [facility]; Protocol Last Admin: 05/09/18 06:16 Dose: 2 unit Labetalol HCl (Normodyne) 20 mg IVPUSH ONETIME ONE; Protocol Stop: 05/07/18 11:01 Last Admin: 05/07/18 11:12 Dose: 20 mg Lisinopril (Prinivil) 5 mg PO DAILY [facility] Last Admin: 05/08/18 08:10 Dose: 5 mg Lisinopril (Prinivil) 10 mg PO DAILY [facility] Magnesium Sulfate (Pharmacy To Dose - Magnesium Replacement) 1 dose .XX ASDIRECTED [facility] Potassium Chloride (Pharmacy To Dose - Potassium Replacement) 1 dose .XX ASDIRECTED [facility] Potassium Chloride (Klor-Con M20) 40 meq PO Q4H [facility] Stop: 05/09/18 15:01 Last Admin: 05/09/18 16:00 Dose: 40 meq Simvastatin (Zocor) 20 mg PO BEDTIME [facility] Simvastatin (Zocor) 40 mg PO BEDTIME [facility] Last Admin: 05/08/18 20:29 Dose: 40 mg - Exam Quality Assessment: DVT Prophylaxis General: Alert, Oriented, Cooperative, No Acute Distress HEENT: Pupils Equal, Pupils Reactive, EOMI, Mucous Membr. Moist/[place] Neck: Supple, Trachea Midline, No JVD Lungs: Normal Respiratory Effort, Decreased Breath Sounds Cardiovascular: Regular Rate, Regular Rhythm GI/Abdominal Exam: Normal Bowel Sounds, Soft, Non-Tender, No Distention (Male) Exam: Deferred Back Exam: Normal Inspection, Full Range of Motion Extremities: Normal Inspection, Normal Range of Motion, Non-Tender, No Pedal Edema, Normal Capillary Refill Peripheral Pulses: 2+: Radial (L), Radial (R), Posterior Tibial (L), Posterior Tibial (R), Dorsalis Pedis (L), Dorsalis Pedis (R) Skin: Warm, Dry, Intact Neurological: No New Focal Deficit Psy/Mental Status: Alert, Normal Affect, Normal Mood - Problem List & Annotations (1) Cerebrovascular accident (CVA) determined by clinical assessment SNOMED Code(s): 763368509, 915847221 Code(s): I63.9 - CEREBRAL INFARCTION, UNSPECIFIED Status: Acute Priority : High Current Visit: Yes (2) Diabetes mellitus, new onset SNOMED Code(s): 224324513, 088763061 Code(s): E11.9 - TYPE 2 DIABETES MELLITUS WITHOUT COMPLICATIONS Status: Acute Priority: High Current Visit: Yes (3) HLD (hyperlipidemia) SNOMED Code(s): 75919930 Code(s): E78.5 - HYPERLIPIDEMIA, UNSPECIFIED Status: Chronic Priority: Medium Current Visit: Yes Qualifiers: Hyperlipidemia type: unspecified Qualified Code(s): E78.5 - Hyperlipidemia , unspecified (4) HTN (hypertension) SNOMED Code(s): 46623239 Code(s): I10 - ESSENTIAL (PRIMARY) HYPERTENSION Status: Chronic Priority : Medium Current Visit: Yes Qualifiers: Hypertension type: unspecified Qualified Code(s): I10 - Essential (primary ) hypertension (5) Malignant hypertension SNOMED Code(s): 05584354 Code(s): I10 - ESSENTIAL (PRIMARY) HYPERTENSION Status: Resolved Priority : High Current Visit: Yes (6) Acute hyperglycemia SNOMED Code(s): 600664689 Code(s): R73.9 - HYPERGLYCEMIA, UNSPECIFIED Status: Resolved Priority: High Current Visit: Yes (7) Alcohol abuse SNOMED Code(s): 95117481 Code(s): F10.10 - ALCOHOL ABUSE, UNCOMPLICATED Status: Chronic Priority: High Current Visit: Yes (8) Hypomagnesemia SNOMED Code(s): 654812427 Code(s): E83.42 - HYPOMAGNESEMIA Status: Resolved Priority: High Current Visit: Yes (9) Hyponatremia SNOMED Code(s): 38731415 Code(s): E87.1 - HYPO-OSMOLALITY AND HYPONATREMIA Status: Resolved Priority: Medium Current Visit: Yes (10) Medical non-compliance SNOMED Code(s): 161146443 Code(s): Z91.19 - PATIENT'S NONCOMPLIANCE W OTH MEDICAL TREATMENT AND REGIMEN Status: Acute Priority: High Current Visit: Yes (11) Elevated brain natriuretic peptide (BNP) level SNOMED Code(s): 764772616, 547316050 Code(s): R79.89 - OTHER SPECIFIED ABNORMAL FINDINGS OF BLOOD CHEMISTRY Status: Acute Current Visit: Yes (12) Systolic heart failure SNOMED Code(s): 246102846 Code(s): I50.20 - UNSPECIFIED SYSTOLIC (CONGESTIVE) HEART FAILURE Status: Acute Priority: High Current Visit: Yes Qualifiers: Heart failure chronicity: chronic Qualified Code(s): I50.22 - Chronic systolic (congestive) heart failure - Problem List Review Problem List Initiated/Reviewed/Updated: Yes - My Orders Last 24 Hours: My Active Orders 05/13/18 05:11 BASIC METABOLIC PANEL,BMP [CHEM] AM MAGNESIUM [CHEM] AM 05/14/18 05:11 BASIC METABOLIC PANEL,BMP [CHEM] AM MAGNESIUM [CHEM] AM 05/15/18 05:11 BASIC METABOLIC PANEL,BMP [CHEM] AM MAGNESIUM [CHEM] AM 05/16/18 05:11 BASIC METABOLIC PANEL,BMP [CHEM] AM MAGNESIUM [CHEM] AM - Plan Plan:: I/P: Acute: CVA -Reports right arm and leg discomfort for past week -Difficulty with speech and facial droop yesterday -Drove himself to ED -Risk factors: Hx/o HLD, HTN, "pre-diabetic", Daily ETOH use, Daily 1.5 pack smoker -Stopped taking statin and BP meds some time ago -CT negative for acute findings -Outside window for tPA -Carotid ultrasound 05/07/18 -Moderate plaque in right carotid bulb, more plaque within left carotid bulb and proximal ICA -Plaque on right appears calcified and shows irregular surface margin -Plaque on left is herterogeneous with smooth surface margins -Velocity within right ICA corresponds to stenosis within range of 1-49% -Velocity within left ICA corresponds to stenosis within range of 50-79% -Echo on 05/07/18 1. LVEF, by visual estimation, is 45-50% 2. MIldly decreased left ventricular systolic function 3. Moderate concentric left ventricular hypertrophy 4. Thinning and severe hypokinesia of the mid and apical septum and hypokinesia of the basal inf wall suggestive of CAD 5. Moderately dilated left atrium -T4/TSH - WNL -MRI on 05/08/18 1. Acute diffusion abnormality within the left basal ganglia extending into the left szymanski radiata compatible with fairly recent irreversible infarct. 2. Mild senescent change as noted -Lipid panel: Triglycerides 154, Total cholesterol 251, LDL 191, HDL 38.0--> re-start statin -ASA - 162mg daily -NPO - > SUPERVISOR [employer]LOADING recommending mechanical soft diet and nectar thick liquids -Aspiration/seizure precautions -Negative UA and UDS Systolic heart failure -Suspect heart failure, although no documented history -3+ edema bilaterally up to knees-> improving -No pulmonary congestion noted on CXR -Echo as above -40mg Lasix given in ED -> Continue daily -> switch to 40mg PO dily -ACEI - start at 5mg-->increase to 10mg--> increase to 20mg -Sodium restricted diet New onset DM -A1C 6.3 on 09/29/16, Now 10.9 -Sliding scale insulin -Diabetic ed consult -Health Promotion Officer consult -QID AC and Bedtime glucose checks -> will up to Q6hr while NPO -Microalbumin 77.3 -Start meformin 500mg BID -Start glipizide 2.5mg BID Chronic alcohol abuse -Reports 4 whiskey tavares daily (2-3 oz of ETOH per drink) -Folic acid/MV/Thiamine -[facility] protocol - has been 0-1 so far -Ativan for seizures - consult -Dr. Lafleur consult - recommending sobriety Tobacco use disorder -Reports 1.5 packs per day smoking -Cessation counseling -Nicotine patch Medical non-compliance -Was on statin previously but stopped as he didn't like how it mad him feel -Was on BP medications but stopped -PCP left town and didn't establish with a new provider -Discussed importance of medications and continued follow-up -Will need to establish with new PCP Hypomagnesemia -Magnesium 1.6-->1.9-->1.7 -2 gram supplemented -Pharmacy to monitor and supplement Resolved: Hyponatremia, mild -Sodium 134-->139 -IV fluids as ordered Malignant HTN, improved -Hx/o HTN and stopped taking meds over one year ago - was on 20mg lisinopril per old notes -BP 217/117 in ED -Norvasc, ACEI, Lasix given in ED -Caution with CVA to lower BP too fast -5mg lisinopril daily--> increase to 10mg-> increase to 20mg -Norvasc 10mg -40mg IVP lasix daily -> switch to 40mg PO dialy -PRN hydralazine Chronic: HLD HTN Recurrent bronchitis COPD BPH Atherosclerotic disease Plan: Admit to ICU-> downgrade to M/S/P status with telemetry CM/SW for discharge planning PT/OT -> recommending home with home health Other orders as indicated above Home meds as ordered Routine AM labs DVT/PE prophylaxis: VIC connor SUPERVISOR UNLOADING evaluation - mechanical soft with nectar thick liquids-> Increased to regular with nectar thick; recommend continued SUPERVISOR UNLOADING treatment Code status: Full Code; PCP: None - appointment made with Dr. Rodriguez by NEELAM to establish LOS>96 hours with CVA recovery; Likely discharge 05/13/18
[2018-05-12] MEDS ORDERED: Magnesium Sulfate/Water 2 GM in Premix Bag 1 BAG IV ONE (13:33)
[2018-05-12] MEDS: amLODIPine 10 MG Tab PO SCH (21:39)
[2018-05-13] MEDS: metFORMIN 500 MG Tab PO SCH (06:00)
[2018-05-13] MEDS: Insulin Aspart 100 Units/ML 3 ML Pen SUBCUT SCH ×2 (06:06→13:38)
--- NOTE | 2018-05-13 07:03 | PCM.DCSUM1 ---
Discharge Summary - Hospital Course HPI Initial Comments: Tl Alvarez is a 67 yo male who resents for ED today (05/07/18), after driving himself here, with right arm and leg discomfort for the better part of a week. She after waking he reports his speech was off. It is reported that he spoke with his mother on the phone and she reported his speech was understandable. After discussion with the ED provider it is noted that his speech was actually off yesterday as well. Denies headache, nausea, vomiting, recent falls, recent closed head injuries. He reports that his leg and arm are clumsy and not obeying him. He also reports right-sided facial droop. He can walk but it is difficult and he needs assistance. Has no history of CVA. Has history of hypertension but he has not been taking any antihypertensive medications for some time now. He was also apparently on a statin but stopped due to side effects. He is a current pack and a half a day smoker. Drinks 4 alcoholic drinks daily. in the ED temp was 36.9 Celsius. Pulse 80. Respirations 16. Blood pressure high at 169/88. Pulse ox 100%. 12-lead EKG was obtained which shows a sinus rhythm at 93 bpm. There is early R wave transition suggesting right ventricular hypertrophy pattern. He is a heavy smoker and likely has pulmonary hypertension. There is ST segment depression in leads V3 to V6 and aVL suggesting possible anterior septal apical lateral wall ischemia. As a deep Q- wave in lead 3 but Q-wave in aVF is less than 25% of the QRS complex considered inconsequential. Computer reads inferior wall CO. Labs are obtained: CBC is normal at 6.78. Hemoglobin good at 15.2. Hematocrit 43.6. He is normocytic. Platelets are good on 194,000. Neutrophils are slightly elevated at 64%. There is 1% band neutrophils noted. PT is 10. INR is less than 0.93. APTT is 28. Sodium is 134. Potassium 3.9. Chloride 99. Coronary oxide 23. Anion gap is high at 15.9. BUN is 14. Creatinine 0.9. EGFR greater than 60. Glucose is quite high at 259. Calcium is 9.4. Magnesium low at 1.6. Chao 0.5. AST is 18, ALT 22, alkaline phosphatase 108. Troponin is negative at 0.017. CRP P0 0.3. Protein 8.0. Albumin 3.7. Ethanol call is 0.00. ESR is 35. A1c is very high at 10.9. BNP is very high at 2742. Lipase is 100. UA is obtained and is negative. And 10 mg of Norvasc, 162 mg by mouth aspirin. 1.25mg vasotec IV. 40 mg IV push Lasix. And 20 mg IV push labetalol. 1 view chest x-rays obtained which notes incidental findings. Nothing acute. No pulmonary congestion is noted. CT of the head was obtained and an interpreted by Dr. Sofia as "1. Senescent changes as described. No acute intracranial abnormalities identified on noncontrast head CT study." he did ambulate in the ER and notes that he does not feel safe walking alone. He does walk with a slightly wider space gait than normal. Right leg does move fairly normal however he states he feels weak and numb. Denies any dizziness and no loss of balance. He is subsequently admitted to the ICU. He carries a history of: hLD, HTN, recurrent bronchitis COPD, BPH. He is a full code. He does not have a PCP. Diagnosis: Stroke: Yes Modified [place] Scale: Slight Disable;Unable to Carry Out Prev Act.Able to Look After Affairs Modified [place] Scale Score: 2 - Discharge Data Discharge Date: 05/13/18 (Admit Date: 05/10/18) Discharge Disposition: Home, W Home Health Agency 06 Condition: Good - Discharge Diagnosis/Problem(s) (1) Cerebrovascular accident (CVA) determined by clinical assessment SNOMED Code(s): 568623518, 716042097 ICD Code: I63.9 - CEREBRAL INFARCTION, UNSPECIFIED Status: Acute Priority : High Current Visit: Yes (2) Diabetes mellitus, new onset SNOMED Code(s): 926351576, 100794613 ICD Code: E11.9 - TYPE 2 DIABETES MELLITUS WITHOUT COMPLICATIONS Status: Acute Priority: High Current Visit: Yes (3) HLD (hyperlipidemia) SNOMED Code(s): 64670419 ICD Code: E78.5 - HYPERLIPIDEMIA, UNSPECIFIED Status: Chronic Priority: Medium Current Visit: Yes Qualifiers: Hyperlipidemia type: unspecified Qualified Code(s): E78.5 - Hyperlipidemia , unspecified (4) HTN (hypertension) SNOMED Code(s): 09956400 ICD Code: I10 - ESSENTIAL (PRIMARY) HYPERTENSION Status: Chronic Priority : Medium Current Visit: Yes Qualifiers: Hypertension type: unspecified Qualified Code(s): I10 - Essential (primary ) hypertension (5) Malignant hypertension SNOMED Code(s): 67217453 ICD Code: I10 - ESSENTIAL (PRIMARY) HYPERTENSION Status: Resolved Priority: High Current Visit: Yes (6) Acute hyperglycemia SNOMED Code(s): 323049137 ICD Code: R73.9 - HYPERGLYCEMIA, UNSPECIFIED Status: Resolved Priority: High Current Visit: Yes (7) Alcohol abuse SNOMED Code(s): 82229312 ICD Code: F10.10 - ALCOHOL ABUSE, UNCOMPLICATED Status: Chronic Priority : High Current Visit: Yes (8) Hypomagnesemia SNOMED Code(s): 414721410 ICD Code: E83.42 - HYPOMAGNESEMIA Status: Resolved Priority: High Current Visit: Yes (9) Hyponatremia SNOMED Code(s): 02130243 ICD Code: E87.1 - HYPO-OSMOLALITY AND HYPONATREMIA Status: Resolved Priority: Medium Current Visit: Yes (10) Medical non-compliance SNOMED Code(s): 584694862 ICD Code: Z91.19 - PATIENT'S NONCOMPLIANCE W OTH MEDICAL TREATMENT AND REGIMEN Status: Acute Priority: High Current Visit: Yes (11) Elevated brain natriuretic peptide (BNP) level SNOMED Code(s): 408004801, 440264304 ICD Code: R79.89 - OTHER SPECIFIED ABNORMAL FINDINGS OF BLOOD CHEMISTRY Status: Acute Current Visit: Yes (12) Systolic heart failure SNOMED Code(s): 658309021 ICD Code: I50.20 - UNSPECIFIED SYSTOLIC (CONGESTIVE) HEART FAILURE Status: Acute Priority: High Current Visit: Yes Qualifiers: Heart failure chronicity: chronic Qualified Code(s): I50.22 - Chronic systolic (congestive) heart failure - Patient Summary/Data Consults: Consultations 05/07/18 12:37 Consult to Case Management [CONS] Routine Consult to Physician [CONS] Routine Consult to Aviation Medicine Specialist [CONS] Routine Consult to Spiritual Care [CONS] Routine OT Evaluation and Treatment [CONS] Routine PT Evaluation and Treatment [CONS] Routine 05/07/18 12:47 Consult to Speech Language Pathology [TECHNICIAN'S HELPER Evaluation and Treatment] [CONS] Routine 05/07/18 13:27 Consult to Diabetic Nurse Specialist [CONS] Routine Consult to High School French Teacher [CONS] Routine 05/12/18 11:45 Consult to Speech Language Pathology [TECHNICIAN'S HELPER Evaluation and Treatment] [CONS] Routine Labs Pending at D/C: None Recommended Follow-up Testing/Procedures: Follow-up with Dr. Rodriguez at established appointment Outpatient PT/OT/TECHNICIAN'S HELPER Recommending to establish with dentist Recommending to recheck lipid panel and CMP in 3 months. Recommending to establish with neurology at next available appointment for CVA follow-up Recommending to establish with tobacco educator - has seen our [facility] tobacco educator [place] Hospital Course: I/P: Acute: CVA -Reports right arm and leg discomfort for past week -Difficulty with speech and facial droop yesterday -Drove himself to ED -Risk factors: Hx/o HLD, HTN, "pre-diabetic", Daily ETOH use, Daily 1.5 pack smoker -Stopped taking statin and BP meds some time ago -CT negative for acute findings -Outside window for tPA -Carotid ultrasound 05/07/18 -Moderate plaque in right carotid bulb, more plaque within left carotid bulb and proximal ICA -Plaque on right appears calcified and shows irregular surface margin -Plaque on left is herterogeneous with smooth surface margins -Velocity within right ICA corresponds to stenosis within range of 1-49% -Velocity within left ICA corresponds to stenosis within range of 50-79% -Echo on 05/07/18 1. LVEF, by visual estimation, is 45-50% 2. MIldly decreased left ventricular systolic function 3. Moderate concentric left ventricular hypertrophy 4. Thinning and severe hypokinesia of the mid and apical septum and hypokinesia of the basal inf wall suggestive of CAD 5. Moderately dilated left atrium -T4/TSH - WNL -MRI on 05/08/18 1. Acute diffusion abnormality within the left basal ganglia extending into the left szymanski radiata compatible with fairly recent irreversible infarct. 2. Mild senescent change as noted -Lipid panel: Triglycerides 154, Total cholesterol 251, LDL 191, HDL 38.0--> re-start statin -ASA - 162mg daily--> increase to 324 daily -NPO - > TECHNICIAN'S HELPER recommending mechanical soft diet and nectar thick liquids -Aspiration/seizure precautions -Negative UA and UDS Systolic heart failure -Suspect heart failure, although no documented history -3+ edema bilaterally up to knees-> improving -No pulmonary congestion noted on CXR -Echo as above -40mg Lasix given in ED -> Continue daily -> switch to 40mg PO daily -ACEI - start at 5mg-->increase to 10mg--> increase to 20mg -Sodium restricted diet New onset DM -A1C 6.3 on 09/29/16, Now 10.9 -Sliding scale insulin -Diabetic ed consult -High School French Teacher consult -QID AC and Bedtime glucose checks -> will up to Q6hr while NPO -Microalbumin 77.3 -Start meformin 500mg BID -Start glipizide 2.5mg BID Chronic alcohol abuse -Reports 4 whiskey tavares daily (2-3 oz of ETOH per drink) -Folic acid/MV/Thiamine -CIWA protocol - has been 0-1 so far -Ativan for seizures -SA consult -Dr. Lafleur consult - recommending sobriety Tobacco use disorder -Reports 1.5 packs per day smoking -Cessation counseling -Nicotine patch Medical non-compliance -Was on statin previously but stopped as he didn't like how it mad him feel -Was on BP medications but stopped -PCP left town and didn't establish with a new provider -Discussed importance of medications and continued follow-up -Will need to establish with new PCP Resolved: Hypomagnesemia -Magnesium 1.6-->1.9-->1.7-->2.0 -2 gram supplemented -Pharmacy to monitor and supplement Hyponatremia, mild -Sodium 134-->139 -IV fluids as ordered Malignant HTN, improved -Hx/o HTN and stopped taking meds over one year ago - was on 20mg lisinopril per old notes -BP 217/117 in ED -Norvasc, ACEI, Lasix given in ED -Caution with CVA to lower BP too fast -5mg lisinopril daily--> increase to 10mg-> increase to 20mg -Norvasc 10mg -40mg IVP lasix daily -> switch to 40mg PO dialy -PRN hydralazine Chronic: HLD HTN Recurrent bronchitis COPD BPH Atherosclerotic disease Plan: Admit to ICU-> downgrade to M/S/P status with telemetry CM/SW for discharge planning PT/OT -> recommending home with home health Other orders as indicated above Home meds as ordered Routine AM labs DVT/PE prophylaxis: VIC connor TECHNICIAN'S HELPER evaluation - mechanical soft with nectar thick liquids-> Increased to regular with nectar thick; recommend continued TECHNICIAN'S HELPER treatment Code status: Full Code; PCP: None - appointment made with Dr. Rodriguez by CM to establish Overall Tl continued to improve. His facial droop was less noticeable and his diet was advanced to diabetic. He did continue to have problems swallowing thin liquids and remained on nectar thick liquids. This was discussed with the patient and he is aware if he has thin liquids he may aspirate, leading to pneumonia or . TECHNICIAN'S HELPER was in to see the patient several times and it is recommended he continue to see an outpatient TECHNICIAN'S HELPER for therapy. He has also been working with PT/OT and this is recommended outpatient as well. He had a rather extensive workups as he apparently quit following up with his PCP several years ago and stopped all medications. He is a daily smoker and this was addressed. He also reportedly drinks 4 ETOH drinks daily. CIWA protocols were started although he never really detoxed. CIWAs remained around 0-1. His BP was quite elevated and medications were started for this. Echo, MRI, CT, and carotid ultrasound were obtained as above. His lipid panel was elevated. His A1C was very high at 10.9. In reviewing his old charts it appears he saw EVANGELINA Jacobs for sometime and then stopped seeing a PCP after she left. His BP and lipids were controlled with medication at that time. He was started on 10mg norvasc at bedtime, ASA 325mg daily, Coreg 3.125mg BID, Lasix 40mg daily, glipizide 2.5mg BID, Lisinopril 20mg daily, metformin 500mg BID with meals, Crestor 10mg daily, 10meq potassium supplementation, and a 21mg nicotine patch. An appointment was scheduled for him to establish with Dr. Rodriguez. We are recommending a repeat lipid panel and CMP within 3 months of discharge. We are also recommending he establish with neurology. He has outpatient PT/OT/TECHNICIAN'S HELPER ordered. He did see a diabetic nurse educator and we are recommending he continue to see one. He also saw a truck unloader. He was instructed to take his BP TID, weight daily, and blood sugars at meals and bedtime. He was told to record this in a journal and bring it with to all medical appointments. He will be discharged home today with home health. I met with Tl to discuss smoking cessation. He received a nicotine patch here and was sent home with a prescription for more. We discussed the [place] quitline and resources he can utilize to stop smoking. This includes his PCP, who can be an excellent resource. We discussed he negative implications smoking has on his health. He voiced understanding. - Patient Instructions Diet: Diabetic Diet Activity: As Tolerated Driving: Do Not Drive Notify Provider of: Fever, Increased Pain, Nausea and/or Vomiting - Discharge Plan Prescriptions/Med Rec: amLODIPine Besylate [Norvasc] 10 mg PO BEDTIME #20 tablet Aspirin [Ecotrin] 325 mg PO DAILY #30 tab.ec Carvedilol [Coreg] 3.125 mg PO BID #40 tablet Furosemide [Lasix] 40 mg PO DAILY #20 tablet glipiZIDE [Glucotrol XL] 2.5 mg PO BID #40 tab.er Lisinopril 20 mg PO DAILY #20 tablet metFORMIN [Glucophage] 500 mg PO BIDMEALS #40 tablet Nicotine [Habitrol] 21 mg TRDERM DAILY #1 box Potassium Chloride 10 meq PO DAILY #20 capsule.er Rosuvastatin [Crestor] 10 mg PO DAILY #20 tablet Home Medications: Home Meds Aspirin [Ecotrin] 325 mg PO DAILY #30 tab.ec 05/13/18 [Rx] Carvedilol [Coreg] 3.125 mg PO BID #40 tablet 05/13/18 [Rx] Furosemide [Lasix] 40 mg PO DAILY #20 tablet 05/13/18 [Rx] Lisinopril 20 mg PO DAILY #20 tablet 05/13/18 [Rx] Nicotine [Habitrol] 21 mg TRDERM DAILY #1 box 05/13/18 [Rx] Potassium Chloride 10 meq PO DAILY #20 capsule.er 05/13/18 [Rx] Rosuvastatin [Crestor] 10 mg PO DAILY #20 tablet 05/13/18 [Rx] amLODIPine Besylate [Norvasc] 10 mg PO BEDTIME #20 tablet 05/13/18 [Rx] glipiZIDE [Glucotrol XL] 2.5 mg PO BID #40 tab.er 05/13/18 [Rx] metFORMIN [Glucophage] 500 mg PO BIDMEALS #40 tablet 05/13/18 [Rx] Patient Handouts: Thickening Liquids for Dysphagia Diet, Dysphagia, Ischemic Stroke, Jiqx-hd-Qlyg, Type 2 Diabetes Mellitus, Self Care, Adult, Leve-ax-Rzhp, Heart Failure, Zodf-vp-Xvig, Blood Glucose Monitoring, Adult, Steps to Quit Smoking Forms: ED Department Discharge Referrals: Mallory Rodriguez MD [Physician] - 05/26/18 8:30 am (Hospital follow-up appointment and to establish care with an internal medicine doctor. Per [facility]: Medical records will be obtained from [facility] and this hospitalization to ensure adequeate follow-up care is provided. ) - Discharge Summary/Plan Comment DC Time >30 min.: Yes (45) - General Info Date of Service: 05/13/18 Admission Dx/Problem (Free Text: Admission Diagnosis/Problem Admission Diagnosis/Problem CVA, Cerebrovascular accident Subjective Update: In to see Tl. He looks good. He has showered and is dressed in his normal clothes. We have a detailed discussion about his current plan of care and importance of follow-up. We discussed his current medications and his need to continue taking them. He has no concerns or complaints. Nursing has no concerns. Functional Status: Reports: Pain Controlled, Tolerating Diet, Ambulating, Urinating. Denies: New Symptoms - Review of Systems General: Reports: Weakness (improving ). Denies: Fever, Chills HEENT: Reports: No Symptoms. Denies: Ear Pain, Sinus Congestion, Sore Throat Pulmonary: Reports: No Symptoms. Denies: Shortness of Breath, Pleuritic Chest Pain, Cough, Wheezing Cardiovascular: Reports: No Symptoms. Denies: Chest Pain, Palpitations, Dyspnea on Exertion, PND, Lightheadedness Gastrointestinal: Reports: No Symptoms. Denies: Abdominal Pain, Constipation, Decreased Appetite, Difficulty Swallowing, Nausea, Vomiting Genitourinary: Reports: No Symptoms Musculoskeletal: Reports: Arm Pain (chronic ) Skin: Reports: No Symptoms Neurological: Reports: No Symptoms, Numbness, Difficulty Walking, Weakness, Change in Speech, Gait Disturbance. Denies: Confusion, Dizziness, Seizure, Syncope, Tingling, Tremors, Trouble Speaking Psychiatric: Reports: No Symptoms - Patient Data Vitals - Most Recent: Last Vital Signs Temp 98.4 F 05/13/18 04:37 Pulse 56 L 05/13/18 04:37 Resp 20 05/13/18 04:37 BP 116/52 L 05/13/18 04:37 Pulse Ox 99 05/13/18 04:37 Weight - Most Recent: 157 lb 3 oz I&O - Last 24 hours: Intake & Output 05/12/18 05/13/18 05/13/18 22:59 06:59 14:59 Intake Total 650 250 Output Total 800 800 Balance -150 -550 Lab Results - Last 24 hrs: Laboratory Results - last 24 hr 05/12/18 05/12/18 05/12/18 Range/Units 08:37 11:43 17:11 Sodium 139 (136-145) mEq/L Potassium 4.4 (3.5-5.1) mEq/L Chloride 104 (98-107) mEq/L Carbon Dioxide 26 (21-32) mEq/L Anion Gap 13.4 (5-15) BUN 18 (7-18) mg/dL Creatinine 1.2 (0.7-1.3) mg/dL Est Cr Clr Drug Dosing 55.08 mL/min Estimated GFR (MDRD) > 60 (>60) mL/min BUN/Creatinine Ratio 15.0 (14-18) Glucose 132 H (80-115) mg/dL POC Glucose 174 H 148 H (80-115) mg/dL Calcium 9.1 (8.5-10.1) mg/dL Magnesium 1.7 L (1.8-2.4) mg/dl 05/12/18 05/13/18 Range/Units 21:37 06:06 Sodium (136-145) mEq/L Potassium (3.5-5.1) mEq/L Chloride (98-107) mEq/L Carbon Dioxide (21-32) mEq/L Anion Gap (5-15) BUN (7-18) mg/dL Creatinine (0.7-1.3) mg/dL Est Cr Clr Drug Dosing mL/min Estimated GFR (MDRD) (>60) mL/min BUN/Creatinine Ratio (14-18) Glucose (80-115) mg/dL POC Glucose 163 H 122 H (80-115) mg/dL Calcium (8.5-10.1) mg/dL Magnesium (1.8-2.4) mg/dl Med Orders - Current: Current Medications Acetaminophen (Tylenol) 650 mg PO Q4H PRN PRN Reason: Pain (Mild 1-3)/fever Last Admin: 05/11/18 08:14 Dose: 650 mg Hydrocodone Bitart/Acetaminophen ([place] 325-5 Mg) 1 tab PO Q4H PRN PRN Reason: Pain (moderate 4-6) Albuterol/Ipratropium (Duoneb 3.0-0.5 Mg/3 Ml) 3 ml NEB Q4H PRN PRN Reason: Shortness Of Breath/wheezing Amlodipine Besylate (Norvasc) 10 mg PO BEDTIME [facility] Last Admin: 05/12/18 21:39 Dose: 10 mg Aspirin (Aspirin) 162 mg PO DAILY [facility] Last Admin: 05/12/18 09:26 Dose: 162 mg Bisacodyl (Dulcolax) 5 mg PO DAILY PRN PRN Reason: Constipation Docusate Sodium (Colace) 100 mg PO BID PRN PRN Reason: Constipation Enoxaparin Sodium (Lovenox) 40 mg SUBCUT DAILY [facility] Last Admin: 05/12/18 09:26 Dose: 40 mg Famotidine (Pepcid) 20 mg PO BID [facility] Last Admin: 05/12/18 21:39 Dose: 20 mg Folic Acid (Folic Acid) 1 mg PO DAILY [facility] Last Admin: 05/12/18 09:25 Dose: 1 mg Furosemide (Lasix) 40 mg PO DAILY [facility] Last Admin: 05/12/18 09:26 Dose: 40 mg Glipizide (Glucotrol Xl) 2.5 mg PO BID [facility] Last Admin: 05/12/18 21:40 Dose: 2.5 mg Hydralazine HCl (Apresoline) 10 mg IVPUSH Q6H PRN PRN Reason: Hypertension Last Admin: 05/08/18 06:23 Dose: 10 mg Insulin Aspart (Novolog) 0 unit SUBCUT QIDACANDBED [facility]; Protocol Last Admin: 05/13/18 06:06 Dose: Not Given Lisinopril (Prinivil) 20 mg PO DAILY [facility] Last Admin: 05/12/18 09:25 Dose: 20 mg Lorazepam (Ativan) 0 mg IVPUSH Q1H PRN; Protocol PRN Reason: withdrawl Lorazepam (Ativan) 2 mg IVPUSH Q4H PRN PRN Reason: Seizures Metformin [facility] (Glucophage) [facility] Last Admin: 05/13/18 06:00 Dose: 500 mg Metoprolol Tartrate (Lopressor) 5 mg IVPUSH Q4H PRN PRN Reason: Tachycardia Miscellaneous Information (Remove Patch) 0 ea TRDERM DAILY [facility] Last Admin: 05/12/18 09:26 Dose: 1 ea Multivitamins (Thera) 1 each PO DAILY [facility] Last Admin: 05/12/18 09:25 Dose: 1 each Nicotine (Habitrol) 21 mg TRDERM DAILY [facility] Last Admin: 05/12/18 09:25 Dose: 21 mg Ondansetron HCl (Zofran) 4 mg IV Q6H PRN PRN Reason: Nausea/Vomiting Ondansetron HCl (Zofran Odt) 4 mg PO Q6H PRN PRN Reason: nausea, able to take PO Polyethylene Glycol (Miralax) 17 gm PO DAILY PRN PRN Reason: Constipation Rosuvastatin Calcium (Crestor) 10 mg PO DAILY [facility] Last Admin: 05/12/18 09:26 Dose: 10 mg Senna/Docusate Sodium (Senna Plus) 1 tab PO BID PRN PRN Reason: Constipation Last Admin: 05/12/18 09:32 Dose: 1 tab Thiamine HCl (Vitamin B-1) 100 mg PO DAILY [facility] Last Admin: 05/12/18 09:25 Dose: 100 mg Discontinued Medications Amlodipine Besylate (Norvasc) 10 mg PO BEDTIME [facility] Amlodipine Besylate (Norvasc) 10 mg PO ONETIME ONE Stop: 05/07/18 11:41 Last Admin: 05/07/18 11:43 Dose: 10 mg Aspirin (Aspirin) 162 mg PO ONETIME ONE Stop: 05/07/18 11:29 Last Admin: 05/07/18 11:35 Dose: 162 mg Dextrose/Water (Dextrose 50% In Water) 50 ml IVPUSH ASDIRECTED PRN PRN Reason: Hypoglycemia Enalaprilat (Vasotec Iv) 1.25 mg IVPUSH ONETIME ONE Stop: 05/07/18 11:35 Last Admin: 05/07/18 11:40 Dose: 1.25 mg Enoxaparin Sodium (Lovenox) 40 mg SUBCUT DAILY [facility] Last Admin: 05/08/18 12:56 Dose: 40 mg Furosemide (Lasix) 40 mg IVPUSH NOW ONE Stop: 05/07/18 11:33 Last Admin: 05/07/18 11:38 Dose: 40 mg Furosemide (Lasix) 40 mg IVPUSH DAILY [facility] Last Admin: 05/08/18 08:11 Dose: 40 mg Sodium Chloride (Normal Saline) 1,000 mls @ 100 mls/hr IV ASDIRECTED [facility] Last Admin: 05/07/18 10:43 Dose: 100 mls/hr Lactated Ringer's (Ringers, Lactated) 1,000 mls @ 75 mls/hr IV ASDIRECTED [facility] Stop: 05/09/18 02:04 Magnesium Sulfate 2 gm/ Premix 50 mls @ 25 mls/hr IV ONETIME ONE Stop: 05/07/18 14:48 Last Admin: 05/07/18 13:42 Dose: 25 mls/hr Dextrose/Sodium Chloride (Dextrose 5%-Normal Saline) 1,000 mls @ 50 mls/hr IV ASDIRECTED [facility] Last Admin: 05/07/18 18:31 Dose: 50 mls/hr Magnesium Sulfate 2 gm/ Premix 50 mls @ 25 mls/hr IV ONETIME ONE Stop: 05/10/18 13:59 Last Admin: 05/10/18 12:15 Dose: 25 mls/hr Magnesium Sulfate 2 gm/ Premix 50 mls @ 25 mls/hr IV ONETIME ONE Stop: 05/12/18 15:32 Last Admin: 05/12/18 13:58 Dose: 25 mls/hr Insulin Aspart (Novolog) 0 unit SUBCUT QIDACANDBED [facility]; Protocol Last Admin: 05/09/18 06:16 Dose: 2 unit Labetalol HCl (Normodyne) 20 mg IVPUSH ONETIME ONE; Protocol Stop: 05/07/18 11:01 Last Admin: 05/07/18 11:12 Dose: 20 mg Lisinopril (Prinivil) 5 mg PO DAILY [facility] Last Admin: 05/08/18 08:10 Dose: 5 mg Lisinopril (Prinivil) 10 mg PO DAILY [facility] Magnesium Sulfate (Pharmacy To Dose - Magnesium Replacement) 1 dose .XX ASDIRECTED [facility] Potassium Chloride (Pharmacy To Dose - Potassium Replacement) 1 dose .XX ASDIRECTED [facility] Potassium Chloride (Klor-Con M20) 40 meq PO Q4H [facility] Stop: 05/09/18 15:01 Last Admin: 05/09/18 16:00 Dose: 40 meq Simvastatin (Zocor) 20 mg PO BEDTIME [facility] Simvastatin (Zocor) 40 mg PO BEDTIME [facility] Last Admin: 05/08/18 20:29 Dose: 40 mg - Exam Quality Assessment: Reports: DVT Prophylaxis General: Reports: Alert, Oriented, Cooperative, No Acute Distress HEENT: Reports: Pupils Equal, Pupils Reactive, EOMI, Mucous Membr. Moist/[place] Neck: Reports: Supple, Trachea Midline, No JVD Lungs: Reports: Normal Respiratory Effort, Decreased Breath Sounds Cardiovascular: Reports: Regular Rate, Regular Rhythm GI/Abdominal Exam: Normal Bowel Sounds, Soft, Non-Tender, No Distention (Male) Exam: Deferred Rectal (Males) Exam: Deferred Back Exam: Reports: Normal Inspection, Full Range of Motion Extremities: Normal Inspection, Normal Range of Motion, Non-Tender, No Pedal Edema, Normal Capillary Refill Skin: Reports: Warm, Dry, Intact Neurological: Reports: No New Focal Deficit Psy/Mental Status: Reports: Alert, Normal Affect, Normal Mood
[2018-05-13] MEDS: Lisinopril 20 MG Tab PO SCH (07:59)
[2018-05-13] MEDS: Rosuvastatin 10 MG Tab PO SCH (07:59)
[2018-05-13] MEDS: Furosemide 40 MG Tab PO SCH (08:00)
[2018-05-13] MEDS: Famotidine 20 MG Tab PO SCH (08:00)
[2018-05-13] MEDS: Folic Acid 1 MG Tab PO SCH (08:00)
[2018-05-13] MEDS: Thiamine 100 MG Tab PO SCH (08:00)
[2018-05-13] MEDS: glipiZIDE 2.5 MG Tab.ER PO SCH (08:00)
[2018-05-13] MEDS: Aspirin 81 MG Tab.Chew PO SCH (08:00)
[2018-05-13] MEDS: Nicotine 21 MG/24 Hr Patch TRDERM SCH (08:01)
[2018-05-13] MEDS: Multivitamins,Therapeutic Tab PO SCH (08:01)
[2018-05-13] MEDS: Enoxaparin 40 MG/0.4 ML Syringe SUBCUT SCH (08:01)
[2018-05-13] MEDS ORDERED: Carvedilol 3.125 MG Tab PO SCH (21:00)
[2018-05-14] MEDS ORDERED: Aspirin 325 MG Tab.EC PO SCH (09:00)
== END 2018-05-13 15:51 | disposition home health service (06) | DRG 65 ==
LOC: JD.ED 10:18 → JD.ICU 12:12 → JD.MS 05-09 08:46
PROVIDERS: ADMIT Internal Medicine; ATTEND Internal Medicine
DX: I63.9 Cerebral infarction, unspecified (principal); E87.1 Hypo-osmolality and hyponatremia; I50.20 Unspecified systolic (congestive) heart failure; I10 Essential (primary) hypertension; E11.9 Type 2 diabetes mellitus without complications; I50.9 Heart failure, unspecified; E78.5 Hyperlipidemia, unspecified; F10.10 Alcohol abuse, uncomplicated; Z91.14 Patient's other noncompliance with medication regimen; Y90.9 Presence of alcohol in blood, level not specified; E83.42 Hypomagnesemia; I70.209 Unspecified atherosclerosis of native arteries of extremities, unspecified extremity; Z91.19 Patient's noncompliance with other medical treatment and regimen; J44.9 Chronic obstructive pulmonary disease, unspecified; N40.0 Benign prostatic hyperplasia without lower urinary tract symptoms; F32.9 Major depressive disorder, single episode, unspecified; I11.0 Hypertensive heart disease with heart failure; H54.7 Unspecified visual loss; F17.210 Nicotine dependence, cigarettes, uncomplicated; Z88.7 Allergy status to serum and vaccine; I70.90 Unspecified atherosclerosis
CPT/HCPCS: 36415; 70450; 71045; 80053; 80306; 81001; 82044; 83036; 83690; 83735; 83880; 84439; 84443; 84484; 85007; 85027; 85610; 85652; 85730; 86140; 93005; 96361; 96374; 96375; 99285; A9270 ×2; G0480; J1940; J7040; 70551; 70551-26; 80048; 80061; 82962; 85025; 92526-GN; 92610-GN; 93010; 93306; 93880; 93880-26; 97110-GN; 97110-GO; 97110-GP; 97112-GO; 97112-GP; 97116-GP; 97162-GP; 97165-GO; 97530-GP; J0360; J1650; J1815-GY; J3475; J7042

== ENCOUNTER 2019-05-05 21:36 | Emergency (ER) | payer MEDICARE, OTHER ==
[~2019-05-05 21:36] MED LIST: 50% Dextrose in Water 50 ML Syringe ONE
[2019-05-05] MEDS ORDERED: Dextrose 5%-0.9% NaCl 1,000 ML ONE (21:45)
[2019-05-05] MEDS ORDERED: 50% Dextrose in Water 50 ML Syringe IVPUSH STA (21:46)
--- NOTE | 2019-05-05 21:57 | EDM.PDOC ---
ED HPI GENERAL MEDICAL PROBLEM - General Chief Complaint: Diabetic Complaint Stated Complaint: [facility] Time Seen by Provider: 05/05/19 21:36 Source of Information: Reports: Patient, EMS History Limitations: Reports: No Limitations - History of Present Illness INITIAL COMMENTS - FREE TEXT/NARRATIVE: The patient is brought to the ED by EMS after calling them for feeling dizzy and short of breath since this afternoon. They found his blood glucose to be 24 at 21:10. He was given 2 Amps of D50, but his blood glucose was still 24 at 21: 25, just shortly before arrival to the ED. Upon arrival to the ED, the patient's Accu-Chek is found to be 39. 1 Amp of D50 was ordered, along with D5 NS at 150 mL per hour. On examination, the patient appears to be comfortable and in no distress. He is remarkably alert for someone with such a low blood glucose. The patient's home medications were brought by the paramedics. He takes metformin 500 mg po Q12 hours and glipizide 2.5 mg po BID. the patient states that he has been compliant with his medications, and is certain that he did not accidentally take any extras. He also states that he may be a little bit more food for lunch that he usually does. The patient denies any recent illness, such as fever, chills, cough, chest pain , dyspnea, nausea, vomiting, constipation, diarrhea, abdominal pain, or urinary symptoms. The patient denies prior episodes of hypoglycemia. He states that he checks his blood sugar only about once a month. The paramedics noted that there was a lot of alcohol in the house. The patient states that he drinks two whiskey and tavares per day. Currently, the patient is not intoxicated. The patient's PCP is Yaneth Dill NP. - Related Data Allergies Allergy/AdvReac Type Severity Reaction Status Date / Time tetnus Allergy Respiratory Uncoded 05/07/18 13:00 Distress Home Meds: Home Meds Aspirin [Ecotrin EC] 325 mg PO DAILY #30 tab.ec 05/13/18 [Rx] Carvedilol [Coreg] 3.125 mg PO BID #40 tablet 05/13/18 [Rx] Furosemide [Lasix] 40 mg PO DAILY #20 tablet 05/13/18 [Rx] Lisinopril 20 mg PO DAILY #20 tablet 05/13/18 [Rx] Rosuvastatin [Crestor] 10 mg PO DAILY #20 tablet 05/13/18 [Rx] glipiZIDE [Glucotrol XL] 2.5 mg PO BID #40 tab.er 05/13/18 [Rx] metFORMIN [Glucophage] 500 mg PO BIDMEALS #40 tablet 05/13/18 [Rx] Spironolactone [Aldactone] 25 mg PO DAILY 05/05/19 [History] amLODIPine Besylate [Norvasc] 10 mg PO DAILY 05/05/19 [History] Past Medical History HEENT History: Reports: Impaired Vision Cardiovascular History: Reports: Heart Failure, High Cholesterol, Hypertension Musculoskeletal History: Reports: Arthritis Endocrine/Metabolic History: Reports: Diabetes, Type II - Infectious Disease History Infectious Disease History: Reports: Chicken Pox, Influenza, Measles, Mumps - Past Surgical History HEENT Surgical History: Reports: Cataract Surgery Social & Family History - Family History HEENT: Reports: Cataract, Glaucoma Musculoskeletal: Reports: Arthritis Neurological: Reports: Alzheimers Disease Oncologic: Reports: Colon - Tobacco Use Smoking Status *Q: Current Every Day Smoker Years of Tobacco use: 49 Packs/Tins Daily: 1 Packs/Tins Daily Comment: Down from 1.5 ppd - Caffeine Use Caffeine Use: Reports: Coffee - Alcohol Use Alcohol Use History: Yes Days Per Week of Alcohol Use: 7 Number of Drinks Per Day: 2 Total Drinks Per Week: 14 Alcohol Use Frequency: Daily - Recreational Drug Use Recreational Drug Use: No - Living Situation & Occupation Living situation: Reports: , Alone Occupation: Retired ED ROS GENERAL - Review of Systems Review Of Systems: ROS reveals no pertinent complaints other than HPI. ED EXAM GENERAL NO PERIP PULSE - Physical Exam Exam: See Below Exam Limited By: No Limitations General Appearance: Alert, No Apparent Distress, Thin Eye Exam: Bilateral Eye: EOMI, Normal Inspection Ears: Normal External Exam, Hearing Grossly Normal Nose: Normal Inspection Throat/Mouth: Normal Inspection, Normal Lips, Normal Voice, No Airway Compromise Head: Atraumatic, Normocephalic Neck: Normal Inspection, Full Range of Motion Respiratory/Chest: No Respiratory Distress, Lungs Clear, Normal Breath Sounds, No Accessory Muscle Use Cardiovascular: Normal Peripheral Pulses, Regular Rate, Rhythm, No Edema, No Gallop, No JVD, No Murmur, No Rub GI/Abdominal: Normal Bowel Sounds, Soft, Non-Tender, No Organomegaly, No Distention, No Abnormal Bruit, No Mass (Male) Exam: Deferred Rectal (Males) Exam: Deferred Back Exam: Normal Inspection, Full Range of Motion, NT Extremities: Normal Inspection, Normal Range of Motion, No Pedal Edema, Normal Capillary Refill Neurological: Alert, Oriented, Normal Cognition, No Motor/Sensory Deficits Psychiatric: Normal Affect Skin Exam: Warm, Dry, Intact, Normal Color, No Rash EKG INTERPRETATION EKG Date: 05/05/19 Time: 21:54 Rhythm: NSR (Single PAC) Rate (Beats/Min): 71 Vincent: Normal P-Wave: Present QRS: Normal ST-T: Normal (Peaked T-waves in V2, V3) QT: Shortened (QTc 379 ms) Comparison: Change From Previous EKG (T-wave changes and shortened QTc new from 05/07/2018) Course - Vital Signs Last Recorded V/S: Last Vital Signs Temp 36.1 C 05/05/19 21:39 Pulse 77 05/05/19 21:39 Resp 16 05/05/19 21:39 BP 139/60 05/05/19 21:39 Pulse Ox 95 05/05/19 21:39 Orthostatic Blood Pressure [ 113/52 Standing] Orthostatic Blood Pressure [ 110/49 Supine] - Orders/Labs/Meds Orders: Active Orders 24 hr Category Date Time Status Accu Check [Blood Glucose Check, Bedside] [] ONETIME Care 05/05/19 21:46 Active Accu Check [Blood Glucose Check, Bedside] [RC] ONETIME Care 05/05/19 23:02 Active EKG Documentation Completion [RC] STAT Care 05/05/19 21:48 Active Orthostatic Vital Signs [RC] STAT Care 05/05/19 21:47 Active Orthostatic Vital Signs [RC] STAT Care 05/05/19 22:52 Active Labs: Laboratory Tests 05/05/19 05/05/19 05/05/19 Range/Units 21:58 22:17 22:17 WBC 10.67 H (4.23-9.07) K/mm3 RBC 3.13 L (4.63-6.08) M/mm3 Hgb 9.8 L D (13.7-17.5) gm/L Hct 29.7 L (40.1-51.0) % MCV 94.9 H D (79.0-92.2) fl MCH 31.3 (25.7-32.2) pg MCHC 33.0 (32.2-35.5) g/dl RDW Std Deviation 45.0 H (35.1-43.9) fL Plt Count 186 (163-337) K/mm3 MPV 11.6 (9.4-12.3) fl Neutrophils % (Manual) 68 H (40-60) % Band Neutrophils % 0 (0-10) % Lymphocytes % (Manual) 18 L (20-40) % Atypical Lymphs % 0 % Monocytes % (Manual) 11 H (2-10) % Eosinophils % (Manual) 3 (0.8-7.0) % Basophils % (Manual) 0 L (0.2-1.2) Toxic Granulation 1+ slight Platelet Estimate Adequate Plt Morphology Comment Normal Anisocytosis 1+ slight Macrocytosis 1+ slight [place] Cells 1+ slight RBC Morph Comment Not Reportable D-Dimer, Quantitative 4.22 H (0.19-0.50) mg/L Sodium (136-145) mEq/L Potassium (3.5-5.1) mEq/L Chloride (98-107) mEq/L Carbon Dioxide (21-32) mEq/L Anion Gap (5-15) BUN (7-18) mg/dL Creatinine (0.7-1.3) mg/dL Est Cr Clr Drug Dosing mL/min Estimated GFR (MDRD) (>60) mL/min BUN/Creatinine Ratio (14-18) Glucose (80-115) mg/dL POC Glucose 173 H (80-115) mg/dL Calcium (8.5-10.1) mg/dL Magnesium (1.8-2.4) mg/dl Total Bilirubin (0.2-1.0) mg/dL AST (15-37) U/L ALT (16-63) U/L Alkaline Phosphatase (46-116) U/L Troponin I (0.00-0.056) ng/mL Total Protein (6.4-8.2) g/dl Albumin (3.4-5.0) g/dl Globulin gm/dL Albumin/Globulin Ratio (1-2) 05/05/19 05/05/19 05/05/19 Range/Units 22:17 22:58 23:33 WBC (4.23-9.07) K/mm3 RBC (4.63-6.08) M/mm3 Hgb (13.7-17.5) gm/L Hct (40.1-51.0) % MCV (79.0-92.2) fl MCH (25.7-32.2) pg MCHC (32.2-35.5) g/dl RDW Std Deviation (35.1-43.9) fL Plt Count (163-337) K/mm3 MPV (9.4-12.3) fl Neutrophils % (Manual) (40-60) % Band Neutrophils % (0-10) % Lymphocytes % (Manual) (20-40) % Atypical Lymphs % % Monocytes % (Manual) (2-10) % Eosinophils % (Manual) (0.8-7.0) % Basophils % (Manual) (0.2-1.2) Toxic Granulation Platelet Estimate Plt Morphology Comment Anisocytosis Macrocytosis Jamee Cells RBC Morph Comment D-Dimer, Quantitative (0.19-0.50) mg/L Sodium 135 L (136-145) mEq/L Potassium 6.2 H* D (3.5-5.1) mEq/L Chloride 106 (98-107) mEq/L Carbon Dioxide 11 L D (21-32) mEq/L Anion Gap 24.2 H (5-15) BUN 113 H D (7-18) mg/dL Creatinine 4.1 H D (0.7-1.3) mg/dL Est Cr Clr Drug Dosing 15.90 mL/min Estimated GFR (MDRD) 15 (>60) mL/min BUN/Creatinine Ratio 27.6 H (14-18) Glucose 210 H (80-115) mg/dL POC Glucose 265 H 251 H (80-115) mg/dL Calcium 8.8 (8.5-10.1) mg/dL Magnesium 2.2 (1.8-2.4) mg/dl Total Bilirubin 0.1 L (0.2-1.0) mg/dL AST 18 (15-37) U/L ALT 27 (16-63) U/L Alkaline Phosphatase 65 (46-116) U/L Troponin I 0.080 H* (0.00-0.056) ng/mL Total Protein 7.2 (6.4-8.2) g/dl Albumin 3.6 (3.4-5.0) g/dl Globulin 3.6 gm/dL Albumin/Globulin Ratio 1.0 (1-2) Meds: Medications Discontinued Medications Generic Name Dose Route Start Last Admin Trade Name Marina PRN Reason Stop Dose Admin Dextrose/Water 50 ml 05/05/19 21:46 05/05/19 21:42 Dextrose 50% In Water IVPUSH 05/05/19 21:47 50 ml ONETIME STA Administration Dextrose/Sodium Chloride Confirm 05/05/19 21:45 05/05/19 21:55 Dextrose 5%-Normal Saline Administered 05/05/19 21:46 Not Given Dose 1,000 mls @ as directed .ROUTE .STK-MED ONE Dextrose/Sodium Chloride 1,000 mls @ 150 mls/hr 05/05/19 22:00 05/05/19 21:47 Dextrose 5%-Normal Saline IV 150 mls/hr ASDIRECTED ADLE Administration Sodium Chloride 1,000 mls @ 999 mls/hr 05/05/19 22:51 05/05/19 22:53 Normal Saline IV 05/05/19 23:51 999 mls/hr ONETIME ONE Administration Sodium Bicarbonate 50 meq 05/05/19 23:41 05/06/19 00:00 Sodium Bicarbonate 8.4% IVPUSH 05/05/19 23:42 50 meq ONETIME ONE Administration Sodium Bicarbonate Confirm 05/05/19 23:53 05/06/19 00:02 Sodium Bicarbonate 8.4% Administered 05/05/19 23:54 Not Given Dose 50 meq .ROUTE .STK-MED ONE Sodium Polystyrene Sulfonate 15 gm 05/05/19 23:40 05/06/19 00:00 Kayexalate PO 05/05/19 23:41 15 gm ONETIME ONE Administration - Re-Assessments/Exams Free Text/Narrative Re-Assessment/Exam: 05/05/19 21:50 According to EMS, the patient's blood glucose was 24 at 21:10, and was still 24 at 21:25, after receiving 2 Amps of D50. Here in the ED, his Accu-Chek is 39. He was given 1 amp of D50 here in the ED, and I have started D5 NS at 150 mL per hour. The patient states that he may have eaten slightly more than he usually does today, and he strongly doubts that he took excess glipizide. His only diabetes medicines are glipizide 2.5 mg po BID and metformin 500 mg po Q12 hours. If all of that is true, then the cause of his hypoglycemia could only be due to acute renal failure, causing decreased renal clearance of his glipizide. I have ordered a workup that includes orthostatics, blood work, and an ECG. We will keep a close eye on his Accu-Cheks. 05/05/19 22:42 The patient's D-dimer has returned as substantially elevated at 4.22. We do not yet have the patient's CMP results, therefore I cannot say whether or not it is due to acute renal failure, however, given his history of dizziness, I believe it would be prudent to rule out a pulmonary embolus, therefore I have ordered a CT angiogram of the chest. 05/05/19 22:52 The patient's CMP is remarkable for a potassium elevated at 6.2, bicarbonate depressed at 11, and a BUN/Cr substantially elevated at 113/4.1. His glucose is 210. The remainder of his CMP is unremarkable. His BUN/Cr were 26/1.2 on 2017. The patient's troponin is mildly elevated at 0.080 While acute renal failure was anticipated, I did not anticipate the degree of renal failure, which is likely responsible for the patient's elevated d-dimer and troponin. Based on this finding, I have canceled the CT angiogram of the chest. The patient is found to be mildly orthostatic. As above, his blood glucose was 210 on his chemistry panel, and he has since eaten, as well. I have therefore ordered discontinuation of his D5 NS and ordered a 1 L bolus of NS. We will recheck orthostatics after it has infused. Because the patient has both hyperkalemia and metabolic acidosis, he will require hemodialysis, and will therefore require transfer to [facility]. 05/05/19 23:44 The patient's CBC is remarkable for WBC count mildly elevated at 10.67, but with 0% bandemia. His H/H is depressed at 9.8/29.7. The remainder of his CBC is unremarkable. The patient's Accu-Chek was 251 at 23:33. Due to the patient's hyperkalemia, I have ordered 15 mg of oral Kayexalate. Due to the patient's metabolic acidosis and hyperkalemia, I have ordered 1 amp of sodium bicarbonate. [facility] contacted at 23:34. Case discussed with Joe at [facility] at 23:37. Case then discussed with Dr. Landeros, Hospitalist at [facility], at 23: 42. He accepted the patient for admission to their facility. The patient will be transported by ground ambulance. 05/06/19 00:03 Following a 1 L bolus of NS, the patient is no longer orthostatic. I will order NS at 150 ml/hr. Departure - Departure Time of Disposition: 23:47 Disposition: DC/Tfer to [facility] 02 Condition: Good Clinical Impression: Hypoglycemia secondary to sulfonylurea, Acute renal failure, Hyperkalemia, High anion gap metabolic acidosis, Orthostasis, Elevated d-dimer, Elevated troponin - Discharge Information *PRESCRIPTION DRUG MONITORING PROGRAM REVIEWED*: Not Applicable *COPY OF PRESCRIPTION DRUG MONITORING REPORT IN PATIENT DANIE: Not Applicable Referrals: Yaneth Dill NP [Primary Care Provider] - Forms: ED Department Discharge - My Orders Last 24 Hours: My Active Orders 05/05/19 21:46 Accu Check [Blood Glucose Check, Bedside] [RC] ONETIME 05/05/19 21:47 Orthostatic Vital Signs [RC] STAT 05/05/19 21:48 EKG Documentation Completion [RC] STAT 05/05/19 22:52 Orthostatic Vital Signs [RC] STAT 05/05/19 23:02 Accu Check [Blood Glucose Check, Bedside] [RC] ONETIME - Assessment/Plan Last 24 Hours: My Active Orders 05/05/19 21:46 Accu Check [Blood Glucose Check, Bedside] [RC] ONETIME 05/05/19 21:47 Orthostatic Vital Signs [RC] STAT 05/05/19 21:48 EKG Documentation Completion [RC] STAT 05/05/19 22:52 Orthostatic Vital Signs [RC] STAT 05/05/19 23:02 Accu Check [Blood Glucose Check, Bedside] [RC] ONETIME
[2019-05-05] MEDS ORDERED: Dextrose 5%-0.9% NaCl 1,000 ML IV SCH (22:00)
[2019-05-05] MEDS ORDERED: Sodium Chloride 0.9% 1,000 ML IV ONE (22:51)
[2019-05-05] MEDS ORDERED: Sodium Polystyrene Sulfonate 15 GM/60 ML Susp 60 ML Bot PO ONE (23:40)
[2019-05-05] MEDS ORDERED: Sodium Bicarbonate 8.4% 50 MEQ/50 ML Syringe IVPUSH ONE (23:41)
[2019-05-05] MEDS ORDERED: Sodium Bicarbonate 8.4% 50 MEQ/50 ML SDV ONE (23:53)
[2019-05-06] MEDS ORDERED: Sodium Chloride 0.9% 1,000 ML IV SCH (00:15)
== END 2019-05-06 00:13 ==
LOC: JD.ED 21:36
DX: E11.649 Type 2 diabetes mellitus with hypoglycemia without coma (principal); T38.3X5A Adverse effect of insulin and oral hypoglycemic [antidiabetic] drugs, initial encounter; Z79.84 Long term (current) use of oral hypoglycemic drugs; N17.9 Acute kidney failure, unspecified; E87.5 Hyperkalemia; E87.2 Acidosis; R79.89 Other specified abnormal findings of blood chemistry; R79.1 Abnormal coagulation profile; F17.210 Nicotine dependence, cigarettes, uncomplicated; I11.0 Hypertensive heart disease with heart failure; I50.9 Heart failure, unspecified; E78.00 Pure hypercholesterolemia, unspecified; Z79.82 Long term (current) use of aspirin; Z79.899 Other long term (current) drug therapy; Z88.7 Allergy status to serum and vaccine
CPT/HCPCS: 36415; 80053; 82962; 83735; 84484; 85007; 85027; 85379; 93005; 96361; 96374; 96375; 99285; A9270; J7040; J7042; J7060; 93010; 99283

== ENCOUNTER 2023-01-04 14:03 | Inpatient (IN) | payer MEDICARE, OTHER ==
[2023-01-04] MEDS ORDERED: Sodium Chloride 0.9% 10 ML Syringe FLUSH PRN (14:16)
[2023-01-04 15:15] LABS: ESTIMATED GFR 18 mL/min (>60)
[2023-01-04 15:21] LABS: HEMOGLOBIN A1C 10.5 %
[2023-01-04] MEDS ORDERED: Sodium Chloride 0.9% 1,000 ML IV STA ×2 (15:33→16:24)
[2023-01-04 15:43] LABS: CORONAVIRUS COVID-19 NAA POSITIVE (NEGATIVE)
[2023-01-04] MEDS ORDERED: Insulin Regular in 0.9 % NACL 100 ML IV SCH (16:15)
[2023-01-04] MEDS ORDERED: hydrALAZINE 20 MG/ML SDV IVPUSH PRN (18:44)
[2023-01-04] MEDS ORDERED: Acetaminophen 325 MG Tab PO PRN (18:44)
[2023-01-04] MEDS ORDERED: Psyllium Husk Powder Sugar Free 5.85 GM Packet PO PRN (18:44)
[2023-01-04] MEDS ORDERED: Albuterol/Ipratropium 3.0-0.5 MG/3 ML Neb Soln NEB PRN (18:44)
[2023-01-04] MEDS ORDERED: Ondansetron 4 MG/2 ML SDV IVPUSH PRN (18:44)
[2023-01-04] MEDS: cefTRIAXone 1 GM in Sodium Chloride 0.9% 100 ML IV SCH (19:22)
[2023-01-04] MEDS: Docusate Sodium 100 MG Cap PO PRN (19:22)
[2023-01-04] MEDS: Nicotine 14 MG/24 Hr Patch TRDERM SCH (19:22)
[2023-01-04] MEDS: Sodium Chloride 0.9% 1,000 ML IV SCH (19:22)
[2023-01-04] MEDS: Heparin Sodium 5,000 Units/ML Vial SUBCUT SCH (21:10)
[2023-01-04] MEDS: Acetaminophen/oxyCODONE 325-5 MG Tab PO PRN (23:14)
[2023-01-05] MEDS: Acetaminophen/oxyCODONE 325-5 MG Tab PO PRN ×2 (05:19→20:41)
[2023-01-05] MEDS: Heparin Sodium 5,000 Units/ML Vial SUBCUT SCH ×3 (05:19→21:06)
[2023-01-05] MEDS: Sodium Chloride 0.9% 1,000 ML IV SCH (05:20)
[2023-01-05] MEDS: Insulin Glargine,Human Rec. Analog 100 Units/ML 3 ML Pen SUBCUT SCH (09:41)
[2023-01-05] MEDS: Insulin Lispro 100 Unit/ML 3 ML KwikPen SUBCUT SCH ×8 (09:42→20:46)
[2023-01-05] MEDS: Nicotine 14 MG/24 Hr Patch TRDERM SCH (09:43)
[2023-01-05] MEDS: Remove Patch *NICOTINE PATCH TRDERM SCH (09:43)
[2023-01-05] MEDS: guaiFENesin/Dextromethorphan 100-10 MG/5 ML Soln 5 ML Cup PO PRN ×2 (10:57→20:37)
[2023-01-05] MEDS: Carvedilol 6.25 MG Tab PO SCH ×2 (10:58→20:37)
[2023-01-05] MEDS: Spironolactone 25 MG Tab PO SCH (10:58)
[2023-01-05] MEDS: Aspirin 81 MG Tab.EC PO SCH (10:58)
[2023-01-05] MEDS: cefTRIAXone 1 GM in Sodium Chloride 0.9% 100 ML IV SCH (20:37)
[2023-01-05] MEDS: Rosuvastatin 10 MG Tab PO SCH (20:37)
[2023-01-06 03:46] LABS: HEMOGLOBIN A1C 10.8 %
[2023-01-06] MEDS: Heparin Sodium 5,000 Units/ML Vial SUBCUT SCH ×3 (06:49→21:01)
[2023-01-06] MEDS: Spironolactone 25 MG Tab PO SCH (08:21)
[2023-01-06] MEDS: Carvedilol 6.25 MG Tab PO SCH ×2 (08:21→20:58)
[2023-01-06] MEDS: Nicotine 14 MG/24 Hr Patch TRDERM SCH (08:22)
[2023-01-06] MEDS: Aspirin 81 MG Tab.EC PO SCH (08:22)
[2023-01-06] MEDS: Insulin Glargine,Human Rec. Analog 100 Units/ML 3 ML Pen SUBCUT SCH (08:25)
[2023-01-06] MEDS: Insulin Lispro 100 Unit/ML 3 ML KwikPen SUBCUT SCH ×8 (08:26→20:57)
[2023-01-06] MEDS: Remove Patch *NICOTINE PATCH TRDERM SCH (11:37)
[2023-01-06] MEDS: guaiFENesin/Dextromethorphan 100-10 MG/5 ML Soln 5 ML Cup PO PRN (12:10)
[2023-01-06] MEDS: Acetaminophen/oxyCODONE 325-5 MG Tab PO PRN (15:13)
[2023-01-06] MEDS: Rosuvastatin 10 MG Tab PO SCH (20:55)
[2023-01-06] MEDS: cefTRIAXone 1 GM in Sodium Chloride 0.9% 100 ML IV SCH (20:55)
[2023-01-07] MEDS: guaiFENesin/Dextromethorphan 100-10 MG/5 ML Soln 5 ML Cup PO PRN ×3 (00:27→17:53)
[2023-01-07] MEDS: Heparin Sodium 5,000 Units/ML Vial SUBCUT SCH ×3 (05:30→21:02)
[2023-01-07] MEDS: Insulin Lispro 100 Unit/ML 3 ML KwikPen SUBCUT SCH ×8 (07:37→22:34)
[2023-01-07] MEDS: Spironolactone 25 MG Tab PO SCH (08:01)
[2023-01-07] MEDS: Aspirin 81 MG Tab.EC PO SCH (08:01)
[2023-01-07] MEDS: Carvedilol 6.25 MG Tab PO SCH ×2 (08:08→20:56)
[2023-01-07] MEDS ORDERED: Insulin Glargine,Human Rec. Analog 100 Units/ML 3 ML Pen SUBCUT SCH (09:00)
[2023-01-07] MEDS: Sodium Chloride 0.9% 1,000 ML IV SCH ×2 (10:15→20:57)
[2023-01-07] MEDS: Tamsulosin 0.4 MG Cap.ER PO SCH (10:35)
[2023-01-07] MEDS: Nicotine 14 MG/24 Hr Patch TRDERM SCH (11:17)
[2023-01-07] MEDS: Remove Patch *NICOTINE PATCH TRDERM SCH (11:18)
[2023-01-07] MEDS ORDERED: Insulin Glargine,Human Rec. Analog 100 Units/ML 3 ML Pen SUBCUT STA (11:47)
[2023-01-07] MEDS ORDERED: Insulin Glargine,Human Rec. Analog 100 Units/ML 3 ML Pen SUBCUT ONE (12:00)
[2023-01-07] MEDS: cefTRIAXone 1 GM in Sodium Chloride 0.9% 100 ML IV SCH (20:56)
[2023-01-07] MEDS: Rosuvastatin 10 MG Tab PO SCH (20:56)
[2023-01-08] MEDS: guaiFENesin/Dextromethorphan 100-10 MG/5 ML Soln 5 ML Cup PO PRN ×3 (02:17→21:08)
[2023-01-08] MEDS: Insulin Lispro 100 Unit/ML 3 ML KwikPen SUBCUT SCH ×8 (06:43→20:15)
[2023-01-08] MEDS: Heparin Sodium 5,000 Units/ML Vial SUBCUT SCH ×3 (06:43→21:08)
[2023-01-08] MEDS: Carvedilol 6.25 MG Tab PO SCH ×2 (08:27→20:12)
[2023-01-08] MEDS: Spironolactone 25 MG Tab PO SCH (08:29)
[2023-01-08] MEDS: Insulin Glargine,Human Rec. Analog 100 Units/ML 3 ML Pen SUBCUT SCH (08:30)
[2023-01-08] MEDS: Aspirin 81 MG Tab.EC PO SCH (08:30)
[2023-01-08] MEDS: Nicotine 14 MG/24 Hr Patch TRDERM SCH (08:36)
[2023-01-08] MEDS: Tamsulosin 0.4 MG Cap.ER PO SCH (10:12)
[2023-01-08] MEDS: Sodium Chloride 0.9% 1,000 ML IV SCH ×3 (10:13→21:08)
[2023-01-08] MEDS: Remove Patch *NICOTINE PATCH TRDERM SCH (10:27)
[2023-01-08] MEDS: Benzonatate 100 MG Cap PO PRN ×2 (11:25→21:08)
[2023-01-08] MEDS: cefTRIAXone 1 GM in Sodium Chloride 0.9% 100 ML IV SCH (20:09)
[2023-01-08] MEDS: Rosuvastatin 10 MG Tab PO SCH (20:11)
[2023-01-09] MEDS: Heparin Sodium 5,000 Units/ML Vial SUBCUT SCH ×3 (05:35→21:00)
[2023-01-09] MEDS: Insulin Glargine,Human Rec. Analog 100 Units/ML 3 ML Pen SUBCUT SCH (08:25)
[2023-01-09] MEDS: Insulin Lispro 100 Unit/ML 3 ML KwikPen SUBCUT SCH ×8 (08:26→21:50)
[2023-01-09] MEDS: Spironolactone 25 MG Tab PO SCH (08:27)
[2023-01-09] MEDS: Nicotine 14 MG/24 Hr Patch TRDERM SCH (08:27)
[2023-01-09] MEDS: Carvedilol 6.25 MG Tab PO SCH ×2 (08:27→20:48)
[2023-01-09] MEDS: Aspirin 81 MG Tab.EC PO SCH (08:27)
[2023-01-09] MEDS: Remove Patch *NICOTINE PATCH TRDERM SCH (08:28)
[2023-01-09] MEDS: Tamsulosin 0.4 MG Cap.ER PO SCH (09:31)
[2023-01-09] MEDS: Sodium Chloride 0.9% 1,000 ML IV SCH (10:36)
[2023-01-09] MEDS: cefTRIAXone 1 GM in Sodium Chloride 0.9% 100 ML IV SCH (20:48)
[2023-01-09] MEDS: Rosuvastatin 10 MG Tab PO SCH (20:48)
[2023-01-10] MEDS: Heparin Sodium 5,000 Units/ML Vial SUBCUT SCH ×3 (06:13→22:41)
[2023-01-10] MEDS: Insulin Lispro 100 Unit/ML 3 ML KwikPen SUBCUT SCH ×8 (07:43→22:37)
[2023-01-10] MEDS: Cefdinir 300 MG Cap PO SCH ×2 (08:43→22:39)
[2023-01-10] MEDS: Spironolactone 25 MG Tab PO SCH (08:45)
[2023-01-10] MEDS: Aspirin 81 MG Tab.EC PO SCH (08:45)
[2023-01-10] MEDS: Nicotine 14 MG/24 Hr Patch TRDERM SCH (08:46)
[2023-01-10] MEDS: Carvedilol 6.25 MG Tab PO SCH ×2 (08:47→22:40)
[2023-01-10] MEDS: Remove Patch *NICOTINE PATCH TRDERM SCH (08:51)
[2023-01-10] MEDS: Insulin Glargine,Human Rec. Analog 100 Units/ML 3 ML Pen SUBCUT SCH (08:57)
[2023-01-10] MEDS: Tamsulosin 0.4 MG Cap.ER PO SCH (10:49)
[2023-01-10] MEDS: Rosuvastatin 10 MG Tab PO SCH (22:40)
[2023-01-11] MEDS: Heparin Sodium 5,000 Units/ML Vial SUBCUT SCH ×3 (05:17→21:04)
[2023-01-11] MEDS: Cefdinir 300 MG Cap PO SCH ×2 (08:00→20:50)
[2023-01-11] MEDS: Aspirin 81 MG Tab.EC PO SCH (08:23)
[2023-01-11] MEDS: Spironolactone 25 MG Tab PO SCH (08:23)
[2023-01-11] MEDS: Carvedilol 6.25 MG Tab PO SCH ×2 (08:24→20:53)
[2023-01-11] MEDS: Nicotine 14 MG/24 Hr Patch TRDERM SCH (08:27)
[2023-01-11] MEDS: Insulin Glargine,Human Rec. Analog 100 Units/ML 3 ML Pen SUBCUT SCH (08:28)
[2023-01-11] MEDS: Insulin Lispro 100 Unit/ML 3 ML KwikPen SUBCUT SCH ×8 (08:29→20:56)
[2023-01-11] MEDS ORDERED: Insulin Glargine,Human Rec. Analog 100 Units/ML 3 ML Pen SUBCUT ONE (08:59)
[2023-01-11] MEDS: Tamsulosin 0.4 MG Cap.ER PO SCH (11:59)
[2023-01-11] MEDS: Remove Patch *NICOTINE PATCH TRDERM SCH (12:00)
[2023-01-11] MEDS ORDERED: Nicotine 14 MG/24 Hr Patch TRDERM PRN (13:57)
[2023-01-11] MEDS ORDERED: Remove Patch *NICOTINE PATCH TRDERM PRN (14:30)
[2023-01-11] MEDS: Rosuvastatin 10 MG Tab PO SCH (20:51)
[2023-01-12] MEDS: Heparin Sodium 5,000 Units/ML Vial SUBCUT SCH ×3 (06:18→20:55)
[2023-01-12] MEDS: Insulin Glargine,Human Rec. Analog 100 Units/ML 3 ML Pen SUBCUT SCH (09:27)
[2023-01-12] MEDS: Insulin Lispro 100 Unit/ML 3 ML KwikPen SUBCUT SCH ×8 (09:28→20:43)
[2023-01-12] MEDS: Aspirin 81 MG Tab.EC PO SCH (09:29)
[2023-01-12] MEDS: Cefdinir 300 MG Cap PO SCH ×2 (09:29→20:45)
[2023-01-12] MEDS: Carvedilol 6.25 MG Tab PO SCH ×2 (09:30→20:45)
[2023-01-12] MEDS: Tamsulosin 0.4 MG Cap.ER PO SCH (09:30)
[2023-01-12] MEDS: Spironolactone 25 MG Tab PO SCH (09:30)
[2023-01-12] MEDS: Rosuvastatin 10 MG Tab PO SCH (20:45)
[2023-01-13] MEDS: Heparin Sodium 5,000 Units/ML Vial SUBCUT SCH ×4 (00:35→22:35)
[2023-01-13] MEDS: Insulin Glargine,Human Rec. Analog 100 Units/ML 3 ML Pen SUBCUT SCH (09:13)
[2023-01-13] MEDS: Insulin Lispro 100 Unit/ML 3 ML KwikPen SUBCUT SCH ×8 (09:13→22:41)
[2023-01-13] MEDS: Carvedilol 6.25 MG Tab PO SCH ×2 (09:14→22:34)
[2023-01-13] MEDS: Cefdinir 300 MG Cap PO SCH (09:14)
[2023-01-13] MEDS: Spironolactone 25 MG Tab PO SCH (09:14)
[2023-01-13] MEDS: Tamsulosin 0.4 MG Cap.ER PO SCH (09:15)
[2023-01-13] MEDS: Aspirin 81 MG Tab.EC PO SCH (09:15)
[2023-01-13] MEDS: Lactated Ringers 1,000 ML IV SCH (10:43)
[2023-01-13] MEDS: Rosuvastatin 10 MG Tab PO SCH (22:34)
[2023-01-14] MEDS: Lactated Ringers 1,000 ML IV SCH (00:23)
[2023-01-14] MEDS: Docusate Sodium 100 MG Cap PO PRN (01:36)
[2023-01-14] MEDS: Heparin Sodium 5,000 Units/ML Vial SUBCUT SCH ×3 (06:25→21:05)
[2023-01-14] MEDS: Insulin Lispro 100 Unit/ML 3 ML KwikPen SUBCUT SCH ×7 (09:00→21:04)
[2023-01-14] MEDS: Insulin Glargine,Human Rec. Analog 100 Units/ML 3 ML Pen SUBCUT SCH (09:00)
[2023-01-14] MEDS: Carvedilol 6.25 MG Tab PO SCH ×2 (10:30→21:03)
[2023-01-14] MEDS: Tamsulosin 0.4 MG Cap.ER PO SCH (10:31)
[2023-01-14] MEDS: Aspirin 81 MG Tab.EC PO SCH (10:31)
[2023-01-14] MEDS: Rosuvastatin 10 MG Tab PO SCH (21:04)
[2023-01-15] MEDS: Heparin Sodium 5,000 Units/ML Vial SUBCUT SCH (05:53)
[2023-01-15] MEDS: Insulin Lispro 100 Unit/ML 3 ML KwikPen SUBCUT SCH ×4 (08:31→11:30)
[2023-01-15] MEDS: Insulin Glargine,Human Rec. Analog 100 Units/ML 3 ML Pen SUBCUT SCH (08:33)
[2023-01-15] MEDS: Aspirin 81 MG Tab.EC PO SCH (08:33)
[2023-01-15] MEDS: Tamsulosin 0.4 MG Cap.ER PO SCH ×2 (08:33→09:11)
[2023-01-15] MEDS: Carvedilol 6.25 MG Tab PO SCH (08:34)
== END 2023-01-15 12:59 | DRG 682 ==
LOC: JD.ED 14:03 → JD.ICU 17:30 → JD.MS 01-09 12:20
PROVIDERS: ADMIT Internal Medicine; ATTEND Internal Medicine
DX: E11.10 Type 2 diabetes mellitus with ketoacidosis without coma (principal); N17.9 Acute kidney failure, unspecified; U07.1 COVID-19; N39.0 Urinary tract infection, site not specified; E78.5 Hyperlipidemia, unspecified; I50.9 Heart failure, unspecified; J44.9 Chronic obstructive pulmonary disease, unspecified; I10 Essential (primary) hypertension; B95.1 Streptococcus, group B, as the cause of diseases classified elsewhere; E86.0 Dehydration; M19.90 Unspecified osteoarthritis, unspecified site; N40.1 Benign prostatic hyperplasia with lower urinary tract symptoms; I11.0 Hypertensive heart disease with heart failure; R33.9 Retention of urine, unspecified; E78.00 Pure hypercholesterolemia, unspecified; N40.0 Benign prostatic hyperplasia without lower urinary tract symptoms; Z98.49 Cataract extraction status, unspecified eye; Z91.14 Patient's other noncompliance with medication regimen; F17.210 Nicotine dependence, cigarettes, uncomplicated; Z79.82 Long term (current) use of aspirin; Z79.899 Other long term (current) drug therapy
CPT/HCPCS: 0241U; 36415; 51701; 51702; 71046; 80048; 80053; 81001; 82009; 82947; 83036; 85025; 85027; 86140; 87040; 87086; 96360; 96361; 97112; 97116; 97161; 97166; 97530; 99285; A9270-GY; J0696; J1644; J1815; J1815-GY; J3490; J7030; J7120

== ENCOUNTER 2024-03-02 09:41 | Emergency (ER) | payer MEDICARE, MEDICAID ==
[2024-03-02] MEDS: Sodium Chloride 0.9% 1,000 ML IV SCH (10:20)
[2024-03-02] MEDS: Sodium Chloride 0.9% 10 ML Syringe FLUSH PRN (10:20)
[2024-03-02 10:34] LABS: BASOPHILS ABSOLUTE AUTO 0.1 K/mm3 (0.0-0.2); BASOPHILS PERCENT AUTO 0.5 % (0.0-1.0); EOSINOPHILS ABSOLUTE AUTO 0.3 K/mm3 (0.0-0.4); EOSINOPHILS PERCENT AUTO 3.3 % (0.0-6.0); HEMOGLOBIN 11.1 gm/dl (14.0-18.0); IMMATURE GRAN ABSOLUTE AUTO 0.06 K/mm3 (0.00-0.05); IMMATURE GRAN PERCENT AUTO 0.7 % (0.0-0.4); LYMPHOCYTES PERCENT AUTO 21.6 % (24.0-44.0); MEAN CORPUSCULAR HEMOGLOBIN 30.2 pg (28.0-32.0); MEAN CORPUSCULAR HGB CONC 33.6 g/dl (32.0-36.0); MEAN CORPUSCULAR VOLUME 89.7 fl (83.0-99.0); MEAN PLATELET VOLUME 11.7 fl (9.4-12.4); MONOCYTES ABSOLUTE AUTO 0.8 K/mm3 (0.0-0.8); MONOCYTES PERCENT AUTO 8.9 % (0.0-8.0); PLATELET COUNT,PLT 202 K/mm3 (150-400); RED BLOOD CELL COUNT 3.68 M/mm3 (4.52-5.90); WHITE BLOOD CELL COUNT,WBC 9.17 K/mm3 (3.9-11.3)
[2024-03-02 11:29] LABS: A/G RATIO 0.7 (1-2); ALANINE AMINOTRANSFERASE,ALT 30 U/L (16-63); ALKALINE PHOSPHATASE 94 U/L (46-116); ANION GAP 16.1 (5-15); ASPARTATE AMNIOTRANSFERASE,AST 17 U/L (15-37); BILIRUBIN TOTAL 0.3 mg/dL (0.2-1.0); BLOOD UREA NITROGEN,BUN 49 mg/dL (7-18); BUN/CREATININE RATIO 21.3 (14-18); CALCIUM 8.8 mg/dL (8.5-10.1); CARBON DIOXIDE,CO2 23 mEq/L (21-32); CHLORIDE,CL 107 mEq/L (98-107); CREATININE 2.3 mg/dL (0.7-1.3); ESTIMATED GFR 29 mL/min (>60); GLUCOSE RANDOM 69 mg/dL (70-99); LIPASE 64 U/L (16-77); POTASSIUM,K 4.1 mEq/L (3.5-5.1); PROTEIN TOTAL,TP 7.5 g/dl (6.4-8.2); SODIUM,NA 142 mEq/L (136-145)
[2024-03-02 11:30] LABS: MAGNESIUM 1.9 mg/dL (1.8-2.4); TROPONIN I HIGH SENSITIVITY 1671 pg/mL (<=76); TSH 0.082 uIU/mL (0.358-3.74)
[2024-03-02] MEDS: Heparin Sodium 5,000 Units/ML Vial IVPUSH ONE (13:21)
[2024-03-02] MEDS: Heparin Sodium/D5W 25,000 UNITS/500 ML BAG IV SCH (13:23)
[2024-03-02 13:25] LABS: INR 1.02; PROTHROMBIN TIME 10.9 SECONDS (9.7-12.0)
[2024-03-02 13:26] LABS: PTT,PARTIAL THROMBOPLSTIN TIME 29.1 SECONDS (21.7-31.4)
== END 2024-03-02 13:40 ==
LOC: JD.ED 09:41
DX: I21.4 Non-ST elevation (NSTEMI) myocardial infarction (principal); G24.9 Dystonia, unspecified; E05.90 Thyrotoxicosis, unspecified without thyrotoxic crisis or storm; I13.0 Hypertensive heart and chronic kidney disease with heart failure and stage 1 through stage 4 chronic kidney disease, or unspecified chronic kidney disease; I50.9 Heart failure, unspecified; N18.9 Chronic kidney disease, unspecified; J44.9 Chronic obstructive pulmonary disease, unspecified; E11.22 Type 2 diabetes mellitus with diabetic chronic kidney disease; Z88.7 Allergy status to serum and vaccine; Z79.82 Long term (current) use of aspirin; Z79.899 Other long term (current) drug therapy; Z79.84 Long term (current) use of oral hypoglycemic drugs
CPT/HCPCS: 36415; 70450; 71045; 80053; 82947; 83690; 83735; 83880; 84443; 84484; 85025; 85610; 85730; 93005; 96361; 96365; 99285; J1644; J3490; J7040

== ENCOUNTER 2024-06-14 19:57 | Emergency (ER) | payer MEDICARE, OTHER, MEDICAID ==
[2024-06-14 21:11] LABS: APPEARANCE,URINE SLT CLOUDY (Clear); BILIRUBIN,URINE NEGATIVE (Negative); COLOR,URINE YELLOW (Yellow); GLUCOSE,URINE NEGATIVE (Negative); KETONES,URINE NEGATIVE (Negative); LEUKOCYTE ESTERASE,URINE 1+ (Negative); NITRITE,URINE POSITIVE (Negative); OCCULT BLOOD,URINE TRACE-INTACT (Negative); PH,URINE 6.5 (5.0-8.0); PROTEIN,URINE 1+ (Negative); UROBILINOGEN,URINE 0.2 (0.2-1.0)
[2024-06-14 22:06] LABS: BACTERIA,URINE MANY /hpf (FEW); MUCUS,URINE FEW /hpf (FEW); SQUAMOUS EPITHELIAL CELLS,UR 0-5 /hpf (0-5)
== END 2024-06-14 21:07 | disposition home or self-care (01) ==
LOC: JD.ED 19:57
DX: T83.091A Other mechanical complication of indwelling urethral catheter, initial encounter (principal); I11.0 Hypertensive heart disease with heart failure; I50.9 Heart failure, unspecified; J44.9 Chronic obstructive pulmonary disease, unspecified; E78.00 Pure hypercholesterolemia, unspecified; E11.9 Type 2 diabetes mellitus without complications; F17.210 Nicotine dependence, cigarettes, uncomplicated; Z88.7 Allergy status to serum and vaccine; Z79.899 Other long term (current) drug therapy; Z79.82 Long term (current) use of aspirin; Z79.4 Long term (current) use of insulin; Y73.2 Prosthetic and other implants, materials and accessory gastroenterology and urology devices associated with adverse incidents
CPT/HCPCS: 51702; 81001; 87086; 87088; 87186; 99283

== ENCOUNTER 2024-08-01 16:09 | Emergency (ER) | payer MEDICARE, OTHER, MEDICAID ==
[2024-08-01] MEDS: Sulfamethoxazole/Trimethoprim 800-160 MG Tab PO ONE (16:53)
== END 2024-08-01 16:56 | disposition home or self-care (01) ==
LOC: JD.ED 16:09
DX: T83.091A Other mechanical complication of indwelling urethral catheter, initial encounter (principal); I11.0 Hypertensive heart disease with heart failure; I50.9 Heart failure, unspecified; J44.9 Chronic obstructive pulmonary disease, unspecified; E11.9 Type 2 diabetes mellitus without complications; F17.210 Nicotine dependence, cigarettes, uncomplicated; Z79.899 Other long term (current) drug therapy; Z88.7 Allergy status to serum and vaccine
CPT/HCPCS: 51702; 99283; A9270

== ENCOUNTER 2024-09-14 13:28 | Emergency (ER) | payer MEDICARE, OTHER, MEDICAID ==
[2024-09-14 15:08] LABS: APPEARANCE,URINE CLOUDY (Clear); BILIRUBIN,URINE NEGATIVE (Negative); COLOR,URINE LIGHT YELLOW (Yellow); GLUCOSE,URINE NEGATIVE (Negative); KETONES,URINE NEGATIVE (Negative); LEUKOCYTE ESTERASE,URINE 2+ (Negative); NITRITE,URINE NEGATIVE (Negative); OCCULT BLOOD,URINE 1+ (Negative); PH,URINE 6.5 (5.0-8.0); PROTEIN,URINE 1+ (Negative); UROBILINOGEN,URINE 0.2 (0.2-1.0)
[2024-09-14 17:24] LABS: BACTERIA,URINE MANY /hpf (FEW); MUCUS,URINE FEW /hpf (FEW); SQUAMOUS EPITHELIAL CELLS,UR 0-5 /hpf (0-5); WBC,URINE 40-50 /hpf (0-5)
== END 2024-09-14 15:20 | disposition home or self-care (01) ==
LOC: JD.ED 13:28
DX: T83.098A Other mechanical complication of other urinary catheter, initial encounter (principal); J44.9 Chronic obstructive pulmonary disease, unspecified; I11.0 Hypertensive heart disease with heart failure; I50.9 Heart failure, unspecified; E78.00 Pure hypercholesterolemia, unspecified; M19.90 Unspecified osteoarthritis, unspecified site; E11.9 Type 2 diabetes mellitus without complications; Z79.82 Long term (current) use of aspirin; Z79.4 Long term (current) use of insulin; Z79.899 Other long term (current) drug therapy; Z88.7 Allergy status to serum and vaccine
CPT/HCPCS: 51702; 81001; 87086; 87088; 87186; 99283; 99284

== ENCOUNTER 2024-09-27 13:23 | Emergency (ER) | payer MEDICARE, OTHER, MEDICAID ==
[2024-09-27 17:50] LABS: APPEARANCE,URINE CLOUDY (Clear); BILIRUBIN,URINE NEGATIVE (Negative); COLOR,URINE YELLOW (Yellow); GLUCOSE,URINE NEGATIVE (Negative); KETONES,URINE NEGATIVE (Negative); LEUKOCYTE ESTERASE,URINE 3+ (Negative); NITRITE,URINE POSITIVE (Negative); OCCULT BLOOD,URINE 1+ (Negative); PROTEIN,URINE 3+ (Negative); UROBILINOGEN,URINE 0.2 (0.2-1.0)
[2024-09-27] MEDS: Cefdinir 300 MG Cap PO ONE (17:55)
[2024-09-27 18:16] LABS: BACTERIA,URINE MODERATE /hpf (FEW); EPITHELIAL CELLS,URINE 0-5 /hpf (0-5); MUCUS,URINE FEW /hpf (FEW); RBC,URINE 0-5 /hpf (0-5); WBC,URINE 75-100 /hpf (0-5)
== END 2024-09-27 18:12 | disposition home or self-care (01) ==
LOC: JD.ED 13:23
DX: T83.091A Other mechanical complication of indwelling urethral catheter, initial encounter (principal); N39.0 Urinary tract infection, site not specified; J44.9 Chronic obstructive pulmonary disease, unspecified; E11.9 Type 2 diabetes mellitus without complications; T83.018A Breakdown (mechanical) of other urinary catheter, initial encounter; I11.0 Hypertensive heart disease with heart failure; I50.9 Heart failure, unspecified; E78.00 Pure hypercholesterolemia, unspecified; F17.210 Nicotine dependence, cigarettes, uncomplicated; Z86.16 Personal history of COVID-19; Z79.82 Long term (current) use of aspirin; Z79.899 Other long term (current) drug therapy; Z79.4 Long term (current) use of insulin; Z88.7 Allergy status to serum and vaccine
CPT/HCPCS: 81001; 87086; 99283; A9270; 99284

== ENCOUNTER 2024-11-16 19:13 | Emergency (ER) | payer MEDICARE, OTHER, MEDICAID ==
[2024-11-16 22:33] LABS: APPEARANCE,URINE CLOUDY (Clear); BILIRUBIN,URINE NEGATIVE (Negative); COLOR,URINE YELLOW (Yellow); GLUCOSE,URINE NEGATIVE (Negative); KETONES,URINE NEGATIVE (Negative); LEUKOCYTE ESTERASE,URINE 2+ (Negative); NITRITE,URINE NEGATIVE (Negative); OCCULT BLOOD,URINE 1+ (Negative); PROTEIN,URINE 2+ (Negative); UROBILINOGEN,URINE 0.2 (0.2-1.0)
[2024-11-16 22:44] LABS: BACTERIA,URINE MANY /hpf (FEW); MUCUS,URINE FEW /hpf (FEW); SQUAMOUS EPITHELIAL CELLS,UR 0-5 /hpf (0-5); WBC,URINE 40-50 /hpf (0-5)
== END 2024-11-16 22:55 | disposition home or self-care (01) ==
LOC: JD.ED 19:13
DX: T83.091A Other mechanical complication of indwelling urethral catheter, initial encounter (principal); J44.9 Chronic obstructive pulmonary disease, unspecified; I11.0 Hypertensive heart disease with heart failure; I50.9 Heart failure, unspecified; E78.00 Pure hypercholesterolemia, unspecified; E11.9 Type 2 diabetes mellitus without complications; Z86.16 Personal history of COVID-19; Z79.899 Other long term (current) drug therapy; Z79.82 Long term (current) use of aspirin; Z79.4 Long term (current) use of insulin; Z88.7 Allergy status to serum and vaccine
CPT/HCPCS: 51702; 81001; 87086; 87088; 87186; 99283

== ENCOUNTER 2024-12-12 13:19 | Emergency (ER) | payer MEDICARE, MEDICAID ==
[2024-12-12 14:46] LABS: APPEARANCE,URINE CLEAR (Clear); BILIRUBIN,URINE NEGATIVE (Negative); COLOR,URINE YELLOW (Yellow); GLUCOSE,URINE 2+ (Negative); KETONES,URINE NEGATIVE (Negative); LEUKOCYTE ESTERASE,URINE 1+ (Negative); NITRITE,URINE POSITIVE (Negative); OCCULT BLOOD,URINE 2+ (Negative); PH,URINE 8.5 (5.0-8.0); PROTEIN,URINE 2+ (Negative); UROBILINOGEN,URINE 0.2 (0.2-1.0)
[2024-12-12 15:08] LABS: EPITHELIAL CELLS,URINE 0-5 /hpf (0-5); RBC,URINE 0-5 /hpf (0-5); WBC,URINE 40-50 /hpf (0-5)
[2024-12-12 15:09] LABS: BACTERIA,URINE MANY /hpf (FEW); MUCUS,URINE FEW /hpf (FEW)
== END 2024-12-12 15:10 | disposition home or self-care (01) ==
LOC: JD.ED 13:19
DX: T83.091A Other mechanical complication of indwelling urethral catheter, initial encounter (principal); N39.0 Urinary tract infection, site not specified; I11.0 Hypertensive heart disease with heart failure; I50.9 Heart failure, unspecified; E78.00 Pure hypercholesterolemia, unspecified; E11.9 Type 2 diabetes mellitus without complications; J44.9 Chronic obstructive pulmonary disease, unspecified; Z86.16 Personal history of COVID-19; Z88.7 Allergy status to serum and vaccine; Z79.82 Long term (current) use of aspirin; Z79.899 Other long term (current) drug therapy; Z79.4 Long term (current) use of insulin; Y73.2 Prosthetic and other implants, materials and accessory gastroenterology and urology devices associated with adverse incidents
CPT/HCPCS: 51702; 81001; 87086; 99283; 99284

== ENCOUNTER 2025-01-11 06:24 | Emergency (ER) | payer MEDICARE, MEDICAID ==
[2025-01-11 07:22] LABS: APPEARANCE,URINE CLOUDY (Clear); BILIRUBIN,URINE NEGATIVE (Negative); COLOR,URINE YELLOW (Yellow); GLUCOSE,URINE NEGATIVE (Negative); KETONES,URINE NEGATIVE (Negative); LEUKOCYTE ESTERASE,URINE 1+ (Negative); NITRITE,URINE NEGATIVE (Negative); OCCULT BLOOD,URINE TRACE-LYSED (Negative); PH,URINE 7.5 (5.0-8.0); PROTEIN,URINE 2+ (Negative); UROBILINOGEN,URINE 0.2 (0.2-1.0)
[2025-01-11 07:30] LABS: BACTERIA,URINE MANY /hpf (FEW); MUCUS,URINE FEW /hpf (FEW); WBC,URINE >100 /hpf (0-5)
== END 2025-01-11 07:43 ==
LOC: JD.ED 06:24
DX: N39.0 Urinary tract infection, site not specified (principal); I11.0 Hypertensive heart disease with heart failure; I50.9 Heart failure, unspecified; J44.9 Chronic obstructive pulmonary disease, unspecified; E11.9 Type 2 diabetes mellitus without complications; Z86.16 Personal history of COVID-19; Z79.899 Other long term (current) drug therapy; Z88.7 Allergy status to serum and vaccine
CPT/HCPCS: 51702; 81001; 87086; 87088; 87186; 99283; 99284

== ENCOUNTER 2025-02-28 16:54 | Emergency (ER) | payer MEDICARE, MEDICAID ==
[2025-02-28 18:24] LABS: APPEARANCE,URINE SLT CLOUDY (Clear); BILIRUBIN,URINE NEGATIVE (Negative); COLOR,URINE LIGHT YELLOW (Yellow); GLUCOSE,URINE TRACE (Negative); KETONES,URINE NEGATIVE (Negative); LEUKOCYTE ESTERASE,URINE 1+ (Negative); NITRITE,URINE NEGATIVE (Negative); OCCULT BLOOD,URINE 1+ (Negative); PROTEIN,URINE 2+ (Negative); UROBILINOGEN,URINE 0.2 (0.2-1.0)
[2025-02-28 18:39] LABS: BACTERIA,URINE MANY /hpf (FEW); EPITHELIAL CELLS,URINE 0-5 /hpf (0-5); MUCUS,URINE FEW /hpf (FEW); RBC,URINE 0-5 /hpf (0-5)
== END 2025-02-28 18:18 | disposition left against medical advice (07) ==
LOC: JD.ED 16:54
DX: T83.091A Other mechanical complication of indwelling urethral catheter, initial encounter (principal); Z53.20 Procedure and treatment not carried out because of patient's decision for unspecified reasons; I11.0 Hypertensive heart disease with heart failure; I50.9 Heart failure, unspecified; E78.00 Pure hypercholesterolemia, unspecified; E11.9 Type 2 diabetes mellitus without complications; Z88.7 Allergy status to serum and vaccine; Z79.899 Other long term (current) drug therapy; Z79.82 Long term (current) use of aspirin; Z79.4 Long term (current) use of insulin; Z86.16 Personal history of COVID-19; Y84.6 Urinary catheterization as the cause of abnormal reaction of the patient, or of later complication, without mention of misadventure at the time of the procedure
CPT/HCPCS: 51702; 81001; 87086; 87088; 87186; 99283

== ENCOUNTER 2025-05-01 00:21 | Emergency (ER) | payer MEDICARE, OTHER, MEDICAID | END 2025-05-01 00:55 | LOC: JD.ED 00:21 | DX: T83.091A Other mechanical complication of indwelling urethral catheter, initial encounter (principal); Y84.6 Urinary catheterization as the cause of abnormal reaction of the patient, or of later complication, without mention of misadventure at the time of the procedure | CPT/HCPCS: 51702; 99281 ==

== ENCOUNTER 2025-05-23 16:35 | Emergency (ER) | payer MEDICARE, OTHER, MEDICAID | END 2025-05-23 17:15 | disposition home or self-care (01) | LOC: JD.ED 16:35 | DX: T83.091A Other mechanical complication of indwelling urethral catheter, initial encounter (principal); I11.0 Hypertensive heart disease with heart failure; I50.9 Heart failure, unspecified; J44.9 Chronic obstructive pulmonary disease, unspecified; E11.9 Type 2 diabetes mellitus without complications; E78.00 Pure hypercholesterolemia, unspecified; Z86.16 Personal history of COVID-19; Z79.899 Other long term (current) drug therapy; Z79.4 Long term (current) use of insulin; Z79.82 Long term (current) use of aspirin; Z88.7 Allergy status to serum and vaccine | CPT/HCPCS: 51702; 99283 ==

== ENCOUNTER 2025-05-23 19:30 | Emergency (ER) | payer MEDICARE, OTHER, MEDICAID | END 2025-05-23 19:51 | disposition home or self-care (01) | LOC: JD.ED 19:30 | DX: Z46.6 Encounter for fitting and adjustment of urinary device (principal) | CPT/HCPCS: 99281 ==

== ENCOUNTER 2025-05-24 22:29 | Emergency (ER) | payer MEDICARE, OTHER, MEDICAID | END 2025-05-24 22:45 | disposition home or self-care (01) | LOC: JD.ED 22:29 | DX: T83.091A Other mechanical complication of indwelling urethral catheter, initial encounter (principal); Y84.6 Urinary catheterization as the cause of abnormal reaction of the patient, or of later complication, without mention of misadventure at the time of the procedure | CPT/HCPCS: 99281 ==

== ENCOUNTER 2025-05-27 01:36 | Emergency (ER) | payer MEDICARE, OTHER, MEDICAID ==
[2025-05-27] MEDS: Acetaminophen/HYDROcodone 325-5 MG Tab PO ONE (02:06)
[2025-05-27 02:26] LABS: APPEARANCE,URINE CLOUDY (Clear); GLUCOSE,URINE 2+ (Negative); OCCULT BLOOD,URINE 2+ (Negative)
[2025-05-27 02:58] LABS: EPITHELIAL CELLS,URINE 0-5 /hpf (0-5); WBC CLUMPS,URINE RARE /hpf (NOT SEEN)
== END 2025-05-27 03:00 | disposition home or self-care (01) ==
LOC: JD.ED 01:36
DX: T83.091A Other mechanical complication of indwelling urethral catheter, initial encounter (principal); N39.0 Urinary tract infection, site not specified; I11.0 Hypertensive heart disease with heart failure; I50.9 Heart failure, unspecified; E78.00 Pure hypercholesterolemia, unspecified; J44.9 Chronic obstructive pulmonary disease, unspecified; E11.9 Type 2 diabetes mellitus without complications; Z88.7 Allergy status to serum and vaccine; Z79.899 Other long term (current) drug therapy; Z79.4 Long term (current) use of insulin; Z79.82 Long term (current) use of aspirin; Z86.16 Personal history of COVID-19; Y84.6 Urinary catheterization as the cause of abnormal reaction of the patient, or of later complication, without mention of misadventure at the time of the procedure
CPT/HCPCS: 51702; 81001; 87086; 87088; 87186; 99283; A9270

== ENCOUNTER 2025-09-26 05:28 | Emergency (ER) | payer MEDICARE, OTHER, MEDICAID ==
[2025-09-26 06:28] LABS: APPEARANCE,URINE CLOUDY (Clear); GLUCOSE,URINE TRACE (Negative); OCCULT BLOOD,URINE 2+ (Negative)
[2025-09-26] MEDS: cefTRIAXone 1 GM, Lidocaine 1% 2.1 ML IM STA (06:28)
[2025-09-26 06:38] LABS: EPITHELIAL CELLS,URINE NOT SEEN /hpf (0-5)
== END 2025-09-26 06:38 | disposition home or self-care (01) ==
LOC: JD.ED 05:28
DX: T83.511A Infection and inflammatory reaction due to indwelling urethral catheter, initial encounter (principal); N39.0 Urinary tract infection, site not specified; I11.0 Hypertensive heart disease with heart failure; I50.9 Heart failure, unspecified; E78.00 Pure hypercholesterolemia, unspecified; J44.9 Chronic obstructive pulmonary disease, unspecified; E11.9 Type 2 diabetes mellitus without complications; M19.90 Unspecified osteoarthritis, unspecified site; Z86.16 Personal history of COVID-19; Z88.7 Allergy status to serum and vaccine; Z79.4 Long term (current) use of insulin; Z79.82 Long term (current) use of aspirin; Z79.899 Other long term (current) drug therapy
CPT/HCPCS: 81001; 87086; 96372; 99283; J0696; J2003; 99284

== ENCOUNTER 2025-09-26 10:03 | Emergency (ER) | payer MEDICARE, OTHER, MEDICAID | END 2025-09-26 10:55 | disposition home or self-care (01) | LOC: JD.ED 10:03 | DX: T83.9XXA Unspecified complication of genitourinary prosthetic device, implant and graft, initial encounter (principal); I11.0 Hypertensive heart disease with heart failure; I50.9 Heart failure, unspecified; F17.200 Nicotine dependence, unspecified, uncomplicated; E78.00 Pure hypercholesterolemia, unspecified; E11.9 Type 2 diabetes mellitus without complications; Z88.8 Allergy status to other drugs, medicaments and biological substances; Z79.899 Other long term (current) drug therapy; Z86.16 Personal history of COVID-19; Z79.4 Long term (current) use of insulin | CPT/HCPCS: 99283 ==

== ENCOUNTER 2025-09-26 23:45 | Emergency (ER) | payer MEDICARE, OTHER, MEDICAID ==
[2025-09-27] MEDS: cefTRIAXone 1 GM, Lidocaine 1% 2.1 ML IM ONE (00:15)
== END 2025-09-27 00:25 | disposition home or self-care (01) ==
LOC: JD.ED 23:45
DX: T83.511A Infection and inflammatory reaction due to indwelling urethral catheter, initial encounter (principal); N39.0 Urinary tract infection, site not specified; I11.0 Hypertensive heart disease with heart failure; I50.9 Heart failure, unspecified; E78.00 Pure hypercholesterolemia, unspecified; J44.9 Chronic obstructive pulmonary disease, unspecified; E11.9 Type 2 diabetes mellitus without complications; M19.90 Unspecified osteoarthritis, unspecified site; Z86.16 Personal history of COVID-19; Z88.7 Allergy status to serum and vaccine; Z79.82 Long term (current) use of aspirin; Z79.4 Long term (current) use of insulin; Z79.899 Other long term (current) drug therapy
CPT/HCPCS: 96372; 99283; J0696; J2003; 99284